=== PATIENT | male | born 1965 | race Caucasian/White ===

== ENCOUNTER 2019-01-15 09:16 | Emergency (ER) | payer OTHER, SELFPAY ==
[2019-01-15 09:21] VITALS: BP 145/101; PULSE 73; RESP 22; TEMP 36.8; O2SAT 95; BMI 39.9
[2019-01-15 09:47] LABS: Add Manual Diff / Slide Review NO; Basophils Absolute Auto 100 /uL (0-100); Basophils Percent Auto 1.9 % (0-2); Eosinophils Absolute Auto 0 /uL (0-450); Eosinophils Percent Auto 0.8 % (2-4); Hematocrit 44.4 % (41-53); Lymphocytes Absolute Auto 1300 /uL (1100-4500); Lymphocytes Percent Auto 23.5 % (25-40); Mean Corpuscular HGB Conc 33.9 % (30-36); Mean Corpuscular Hemoglobin 30.2 PG (26-34); Mean Corpuscular Volume 89.1 fL (80-100); Monocytes Absolute Auto 400 /uL (0-900); Monocytes Percent Auto 7.2 % (3-14); Neutrophils Absolute Auto 3700 /uL (1500-7000); Neutrophils Percent Auto 66.6 % (50-75); Platelet Count 171 X10^3/uL (150-400); Red Blood Cell Count 4.99 X10^6/uL (4.5-5.9); Red Cell Distribution Width 15.1 % (11.6-14.8); White Blood Cell Count 5.5 X10^3/uL (4.5-11.0)
[2019-01-15] MEDS: SODIUM CHLORIDE 0.9% 1,000 ML 150 ML IV (09:57)
[2019-01-15 09:59] LABS: Alanine Aminotransferase 367 IU/L (21-72); Albumin 4.6 g/dL (3.5-5.0); Albumin Globulin Ratio 1.2 (1.0-2.8); Alkaline Phosphatase 318 U/L (38-126); Aspartate Aminotransferase 243 IU/L (17-59); BUN Creatinine Ratio 18.3 (6-22); Bilirubin Total 9.1 mg/dL (0.2-1.3); Blood Urea Nitrogen 11 mg/dL (9-20); Calcium 9.8 mg/dL (8.4-10.2); Carbon Dioxide 23 mmol/L (22-32); Chloride 97 mmol/L (98-107); Estimated Glomerular Filt Rate > 60.0 mL/min (>60); Globulin 3.8 g/dL (1.7-4.1); Glucose 338 mg/dL (70-100); Lipase 118 U/L (23-300); Potassium 4.4 mmol/L (3.4-5.1); Sodium 135 mmol/L (137-145); Total Protein 8.4 g/dL (6.3-8.2)
[2019-01-15 10:03] LABS: HEMOLYSIS 117 (0-50)
[2019-01-15 10:03] LABS: Bacteria Urine None Seen; RBC Urine None Seen (0-5/HPF)
[2019-01-15 10:10] LABS: Culture Indicated Urine Cult Not Indicated; Hyaline Casts Urine 1-5/LPF; WBC Urine 0-1/HPF (0-5/HPF)
[2019-01-15 10:20] LABS: Prothrombin Time 11.6 SECONDS (10.1-12.7)
--- NOTE | 2019-01-15 10:20 | ED_ITS ---
HPI - Abdominal Pain General Chief Complaint: Abdominal Pain Stated Complaint: blood in stool x2 days Time Seen by Provider: 01/15/19 10:00 Source: patient Mode of arrival: ambulatory Limitations: no limitations History of Present Illness HPI narrative: Patient is a 53-year-old male history of diabetes presenting with 1 episode of bloody stool yesterday. He says he has minimal lower abdominal pain no nausea vomiting no fevers. She was worried because he had a large amount of blood. He had a bowel movement after that that was not bloody. He says it was a little mucousy. He has not had any recent travel. He does look jaundiced he denies drinking alcohol he denies any history of IV drug abuse no recent travel. He has no right upper quadrant pain. He is not on any blood thinners or anticoagulation medication. Related Data Home Medications Medication Instructions Recorded Confirmed No Known Home Medications 01/15/19 01/15/19 Allergies Allergy/AdvReac Type Severity Reaction Status Date / Time No Known Drug Allergies Allergy Verified 01/15/19 10:10 Review of Systems Review of Systems ROS Unobtainable: All systems reviewed & are unremarkable except as noted in HPI and below Constitutional Constitutional: Denies chills, Denies fever(s), Denies lethargy and Denies we akness Eyes Eyes: Denies change in vision, Denies eye discharge, Denies irritation and Denies loss of vision ENT Ears, Nose, Mouth, and Throat: Denies change in voice, Denies neck pain and Denies sore throat Cardiovascular Cardiovascular: Denies chest pain, Denies irregular heart rhythm, Denies lightheadedness, Denies palpitations, Denies dyspnea, Denies dyspnea on exertion and Denies orthopnea Respiratory Respiratory: Denies cough, Denies dyspnea, Denies dyspnea on exertion and Denies wheezing Gastrointestinal Gastrointestinal: Reports as per HPI Musculoskeletal Musculoskeletal: Denies neck pain Integumentary/Breasts Skin/Breast: Denies pruritus, Denies erythema, Denies rash and Denies wounds Neurologic Neurologic: Denies loss of vision and Denies weakness Endocrine Endocrine: Denies palpitations Allergic/Immunologic Allergic/Immunologic: Denies wheezing [facility] Medical History Diabetes (Acute) Social History Smoking Status: Former smoker Social History Smoking Status: Former smoker Exam Initial Vital Signs Initial Vital Signs: Vital Signs Temperature 98.3 F 01/15/19 09:21 Pulse Rate 73 01/15/19 09:21 Respiratory Rate 22 01/15/19 09:21 Blood Pressure 145/101 H 01/15/19 09:21 Pulse Oximetry 95 01/15/19 09:21 GENERAL: Alert pleasant middle-aged male appears jaundice and in no acute distress. HEENT: Head atraumatic,EOMI, pupils reactive, icterus noted, face symmetric, moist mucous membranes CARDIOVASCULAR: Regular rate and rhythm without murmurs, rubs or gallops. RESPIRATORY: Breath sounds equal bilaterally, no wheezes rales or rhonchi. ABDOMEN: Soft, nontender. Normoactive bowel sounds all 4 quadrants. No guarding or rebound. No right upper quadrant pain RECTAL: Hemoccult-negative, no gross blood no hemorrhoids, no hemorrhoids, nontender EXTREMITIES: Normal range of motion, no clubbing or edema. Neurovascularly intact NEUROLOGICAL: Alert and oriented x4.Normal gait and speech. Cranial nerves II through XII grossly intact. SKIN: Warm, dry, no laceration, no petechiae, no rashes or lesions. Course Orders Ordered: ED Orders 01/15/19 09:35 Acetaminophen Stat Complete Blood Count AUTO DIFF Stat Comprehensive Metabolic Panel Stat Ethanol (ETOH) Stat Lipase Stat Partial Thromboplastin Time Stat Prothrombin Time INR Stat 01/15/19 10:00 Urine Microscopic Stat 01/15/19 10:23 CT abdomen pelvis w con Stat 01/15/19 11:39 US abdomen complete Stat Discontinued Medications Sodium Chloride (Normal Saline 0.9%) 1,000 mls @ 150 mls/hr IV CONT DEMETRA Last Infusion: 01/15/19 13:11 Dose: 150 mls/hr Documented by: Admin: 01/15/19 09:57 Dose: 150 mls/hr Documented by: ANNMARIE Vital Signs Vital signs: Vital Signs - 8 hr 01/15/19 11:11 01/15/19 12:00 Pulse Rate 61 68 Respiratory Rate 17 17 Blood Pressure [Left Arm] 131/83 134/88 Pulse Oximetry 96 97 MDM - Abdominal Pain Lab Data Attestation: I reviewed the patient's lab results. Result diagrams: 01/15/19 09:35 01/15/19 09:35 Labs: Lab Results 01/15/19 01/15/19 01/15/19 Range/Units 09:35 09:35 09:35 WBC 5.5 (4.5-11.0) X10^3/uL RBC 4.99 (4.5-5.9) X10^6/uL Hgb 15.0 (13.5-17.5) g/dL Hct 44.4 (41-53) % MCV 89.1 (80-100) fL MCH 30.2 (26-34) PG MCHC 33.9 (30-36) % RDW 15.1 H (11.6-14.8) % Plt Count 171 (150-400) X10^3/uL Neut % (Auto) 66.6 (50-75) % Lymph % (Auto) 23.5 L (25-40) % Ashe % (Auto) 7.2 (3-14) % Eos % (Auto) 0.8 L (2-4) % Baso % (Auto) 1.9 (0-2) % Neut # (Auto) 3700 (7894-5075) /uL Lymph # (Auto) 1300 (3525-5728) /uL Ashe # (Auto) 400 (0-900) /uL Eos # (Auto) 0 (0-450) /uL Baso # (Auto) 100 (0-100) /uL PT 11.6 (10.1-12.7) SECONDS INR 1.0 (0.9-1.3) APTT 30 (26.4-36.2) SECONDS Sodium 135 L (137-145) mmol/L Potassium 4.4 (3.4-5.1) mmol/L Chloride 97 L (98-107) mmol/L Carbon Dioxide 23 (22-32) mmol/L BUN 11 (9-20) mg/dL Creatinine 0.60 L (0.66-1.25) mg/dL Estimated GFR > 60.0 (>60) mL/min BUN/Creatinine Ratio 18.3 (6-22) Glucose 338 H (70-100) mg/dL Calcium 9.8 (8.4-10.2) mg/dL Total Bilirubin 9.1 H (0.2-1.3) mg/dL AST 243 H (17-59) IU/L ALT 367 H (21-72) IU/L Alkaline Phosphatase 318 H (38-126) U/L Total Protein 8.4 H (6.3-8.2) g/dL Albumin 4.6 (3.5-5.0) g/dL Globulin 3.8 (1.7-4.1) g/dL Albumin/Globulin Ratio 1.2 (1.0-2.8) Lipase 118 (23-300) U/L Urine RBC (0-5/HPF) Urine WBC (0-5/HPF) Urine Bacteria (None) Hyaline Casts (None) Ur Culture Indicated? Acetaminophen (10-30) ug/mL Ethyl Alcohol ( - 10) mg/dL 01/15/19 01/15/19 01/15/19 Range/Units 09:35 09:35 10:00 WBC (4.5-11.0) X10^3/uL RBC (4.5-5.9) X10^6/uL Hgb (13.5-17.5) g/dL Hct (41-53) % MCV (80-100) fL MCH (26-34) PG MCHC (30-36) % RDW (11.6-14.8) % Plt Count (150-400) X10^3/uL Neut % (Auto) (50-75) % Lymph % (Auto) (25-40) % Ashe % (Auto) (3-14) % Eos % (Auto) (2-4) % Baso % (Auto) (0-2) % Neut # (Auto) (3686-8057) /uL Lymph # (Auto) (8673-6366) /uL Ashe # (Auto) (0-900) /uL Eos # (Auto) (0-450) /uL Baso # (Auto) (0-100) /uL PT (10.1-12.7) SECONDS INR (0.9-1.3) APTT (26.4-36.2) SECONDS Sodium (137-145) mmol/L Potassium (3.4-5.1) mmol/L Chloride (98-107) mmol/L Carbon Dioxide (22-32) mmol/L BUN (9-20) mg/dL Creatinine (0.66-1.25) mg/dL Estimated GFR (>60) mL/min BUN/Creatinine Ratio (6-22) Glucose (70-100) mg/dL Calcium (8.4-10.2) mg/dL Total Bilirubin (0.2-1.3) mg/dL AST (17-59) IU/L ALT (21-72) IU/L Alkaline Phosphatase (38-126) U/L Total Protein (6.3-8.2) g/dL Albumin (3.5-5.0) g/dL Globulin (1.7-4.1) g/dL Albumin/Globulin Ratio (1.0-2.8) Lipase (23-300) U/L Urine RBC None seen (0-5/HPF) Urine WBC 0-1/hpf (0-5/HPF) Urine Bacteria None seen (None) Hyaline Casts 1-5/lpf (None) Ur Culture Indicated? Cult not indicated Acetaminophen < 10 L (10-30) ug/mL Ethyl Alcohol < 10 ( - 10) mg/dL Point of care testing: Urine Dip Bedside Urine Glucose 1000 mg/dl Bedside Urine Bilirubin ++ 2 Bedside Urine Ketone ++ 40 Urine Specific [place] 1.025 Bedside Urine Occult Blood - Negative Bedside Urine pH 5.0 Bedside Urine Protein +/- 15 Bedside Urine Urobilinogen +/- 1mg Bedside Urine Nitrite - Negative Bedside Urine Leukocytes +/- [address] scan - abdomen: Radiologist's impression: PROCEDURE: CT ABDOMEN PELVIS W CON INDICATIONS: elevated liver enzymes bloody stool TECHNIQUE: After the administration of intravenous contrast, 5 mm thick sections acquired from the diaphragm to the symphysis. 5 mm coronal and sagittal reformats were acquired. For radiation dose reduction, the following was used: automated exposure control, adjustment of mA and/or kV according to patient size. COMPARISON: None. FINDINGS: Image quality: Excellent. ABDOMEN: Lung bases: There is mild dependent atelectasis bilaterally. Heart size is normal. Solid organs: There is an ill-defined slightly hypoattenuating mass within the uncinate process of the pancreas measuring approximately 3.3 cm in transverse extent by 3 cm in anteroposterior extent by 3 cm in craniocaudal extent. There is associated mass effect on the distal common bile duct with intra-and extrahepatic biliary ductal dilatation. The common bile duct measures up to approximately 1.2 cm. No pancreatic duct dilatation. The mass lesion extends to the 2nd portion of the duodenum with effacement of the fat plane suspicious for duodenal invasion. No definite vascular encasement identified. Evaluation of the liver demonstrates no definite mass lesion. The gallbladder is distended without calcified gallstones or wall thickening. Spleen is normal in size and enhancement. No adrenal nodules. Kidneys demonstrate normal size and enhancement, without hydronephrosis. Peritoneum and bowel: Bowel loops demonstrate normal wall thickness and caliber. The appendix is normal in appearance. There is colonic diverticulosis without acute diverticulitis. No free fluid or air. Nodes and vessels: There are mildly enlarged peripancreatic lymph nodes including a portacaval node measuring up to 1 cm in short axis. Aorta and inferior vena cava are normal in size. Miscellaneous: No ventral hernias. PELVIS: Genitourinary: Bladder wall thickness is normal. Miscellaneous: No inguinal hernias or adenopathy. Bones: No suspicious bony lesions. No vertebral body compression fractures. IMPRESSION: 1. Ill-defined mass in the uncinate process of the pancreas with associated biliary ductal dilatation. The findings most likely represent a pancreatic ad enocarcinoma. There is suspected invasion of the descending portion of the duodenum. No pancreatic duct dilatation or definite vascular encasement identified. 2. Mildly enlarged peripancreatic lymph nodes are nonspecific but suggestive of felipe metastatic disease. Dictated by: Monty Osorio M.D. on 01/15/2019 at 10:44 US - abdomen: Radiologist's impression: PROCEDURE: US ABDOMEN COMPLETE INDICATIONS: RUQ PAIN, ELEV LIVER ANZYMES AND BILIRUBIN TECHNIQUE: Real-time scanning was performed of the abdominal and retroperitoneal organs, with image documentation. COMPARISON: [facility], CT, CT ABDOMEN PELVIS W CON, 01/15/2019, 10:28. FINDINGS: Liver: Liver is enlarged the steatosis. Gallbladder: Gallbladder is distended. Layering increased echogenicity is present, likely sludge. Brewer within normal limits measuring 1.7 mm. Biliary ducts: Intrahepatic bile ducts are mildy prominent. Extrahepatic bile duct caliber measures 13 mm. Normal is 6-7 mm or less in diameter, or 10 mm or less post-cholecystectomy. Pancreas: Not visualized. Spleen: Spleen is normal in size and homogeneous in echotexture. Kidneys: Kidneys are normal in size and echotexture. Right kidney measures 12.8 cm long; left kidney measures 13.7 cm long. No hydronephrosis or nephrolithiasis. No solid masses. Aorta: Visualized aorta is normal in caliber at less than 3 cm. Iliacs: Proximal common iliac arteries are normal in caliber at less than 2.5 cm. IVC: Intrahepatic inferior vena cava is patent. Miscellaneous: No free abdominal fluid. IMPRESSION: Unchanged bile duct and intrahepatic biliary dilation as identified on CT abdomen pelvis of 01/15/19. Previously identified pancreatic mass identified on CT is unable to be visualized on current exam, as pancreas is not seen secondary to overlying bowel gas. Dictated by: Cely Woodard M.D. on 01/15/2019 at 13:13 MDM Narrative Medical decision making narrative: Patient has obvious jaundice elevated bili Escobar. Pancreatic mass is found. However patient is relatively asymptomatic. He is guaiac-negative hemoglobin hematocrit are stable. I spoke with surgery Dr. Prabhakar, who recommends that patient get a biliary stent placed he will obviously need further workup. I called [place] and spoke with the GI doctor Edilia, at this time though he does need urgent procedure it is not emergent no need to transfer at this time. Recommend getting referral from PCP. I was able to contact the [facility] I spoke with a nurse directly involved with with patient's PCP. Discussed with her that urgent matter I gave her the name of the physician at [place] who is willing and able to do the procedure later this week. I have also given this information to the patient. I discussed all findings with the patient, Education has been performed regarding treatment plan, diagnosis, warning signs and symptoms and all concerns have been addressed. Verbally agree with and understood all of the above. Discharge Plan Departure Patient Disposition: Home Clinical Impression: Mass of pancreas Discharge Date/Time: 01/15/19 13:43 Activity Restrictions/Additional Instructions: *You have been diagnosed with pancreatic mass *What to do: You need multiple other tests and workup. I have called your PCP they are putting in a referral for you for GI hopefully you can get ERCP and procedure done this week. *Continue to take medications as directed *Follow up with your primary care provider in 2-3 days GI doctor and office should call you. Please check in with your PCP and the GI to see where the referral is. *Return to ER if you should have increasing abdominal pain nausea vomiting persistent bloody diarrhea or any new, worsening or concerning symptoms Prescriptions: No Action No Known Home Medications RF: 0 [facility]errals: [facility] [Provider Group] Sin Heredia MD [Physician] -
[2019-01-15 10:23] LABS: PTT Partial Thromboplastin Tim 30 SECONDS (26.4-36.2)
--- NOTE | 2019-01-15 10:23 | DI.CT.S_ITS ---
PROCEDURE: CT ABDOMEN PELVIS W CON INDICATIONS: elevated liver enzymes bloody stool TECHNIQUE: After the administration of intravenous contrast, 5 mm thick sections acquired from the diaphragm to the symphysis. 5 mm coronal and sagittal reformats were acquired. For radiation dose reduction, the following was used: automated exposure control, adjustment of mA and/or kV according to patient size. COMPARISON: None. FINDINGS: Image quality: Excellent. ABDOMEN: Lung bases: There is mild dependent atelectasis bilaterally. Heart size is normal. Solid organs: There is an ill-defined slightly hypoattenuating mass within the uncinate process of the pancreas measuring approximately 3.3 cm in transverse extent by 3 cm in anteroposterior extent by 3 cm in craniocaudal extent. There is associated mass effect on the distal common bile duct with intra-and extrahepatic biliary ductal dilatation. The common bile duct measures up to approximately 1.2 cm. No pancreatic duct dilatation. The mass lesion extends to the 2nd portion of the duodenum with effacement of the fat plane suspicious for duodenal invasion. No definite vascular encasement identified. Evaluation of the liver demonstrates no definite mass lesion. The gallbladder is distended without calcified gallstones or wall thickening. Spleen is normal in size and enhancement. No adrenal nodules. Kidneys demonstrate normal size and enhancement, without hydronephrosis. Peritoneum and bowel: Bowel loops demonstrate normal wall thickness and caliber. The appendix is normal in appearance. There is colonic diverticulosis without acute diverticulitis. No free fluid or air. Nodes and vessels: There are mildly enlarged peripancreatic lymph nodes including a portacaval node measuring up to 1 cm in short axis. Aorta and inferior vena cava are normal in size. Miscellaneous: No ventral hernias. PELVIS: Genitourinary: Bladder wall thickness is normal. Miscellaneous: No inguinal hernias or adenopathy. Bones: No suspicious bony lesions. No vertebral body compression fractures. IMPRESSION: 1. Ill-defined mass in the uncinate process of the pancreas with associated biliary ductal dilatation. The findings most likely represent a pancreatic adenocarcinoma. There is suspected invasion of the descending portion of the duodenum. No pancreatic duct dilatation or definite vascular encasement identified. 2. Mildly enlarged peripancreatic lymph nodes are nonspecific but suggestive of felipe metastatic disease. Dictated by: Monty Osorio M.D. on 01/15/2019 at 10:44 Approved by: Monty Osorio M.D. on 01/15/2019 at 10:52
[2019-01-15 10:52] LABS: Acetaminophen < 10 ug/mL (10-30); Ethanol (ETOH) < 10 mg/dL
[2019-01-15 11:11] VITALS: BP 131/83; PULSE 61; RESP 17; O2SAT 96
--- NOTE | 2019-01-15 11:39 | DI.US.S_ITS ---
PROCEDURE: US ABDOMEN COMPLETE INDICATIONS: RUQ PAIN, ELEV LIVER ANZYMES AND BILIRUBIN TECHNIQUE: Real-time scanning was performed of the abdominal and retroperitoneal organs, with image documentation. COMPARISON: [facility], CT, CT ABDOMEN PELVIS W CON, 01/15/2019, 10:28. FINDINGS: Liver: Liver is enlarged the steatosis. Gallbladder: Gallbladder is distended. Layering increased echogenicity is present, likely sludge. Brewer within normal limits measuring 1.7 mm. Biliary ducts: Intrahepatic bile ducts are mildy prominent. Extrahepatic bile duct caliber measures 13 mm. Normal is 6-7 mm or less in diameter, or 10 mm or less post-cholecystectomy. Pancreas: Not visualized. Spleen: Spleen is normal in size and homogeneous in echotexture. Kidneys: Kidneys are normal in size and echotexture. Right kidney measures 12.8 cm long; left kidney measures 13.7 cm long. No hydronephrosis or nephrolithiasis. No solid masses. Aorta: Visualized aorta is normal in caliber at less than 3 cm. Iliacs: Proximal common iliac arteries are normal in caliber at less than 2.5 cm. IVC: Intrahepatic inferior vena cava is patent. Miscellaneous: No free abdominal fluid. IMPRESSION: Unchanged bile duct and intrahepatic biliary dilation as identified on CT abdomen pelvis of 01/15/19. Previously identified pancreatic mass identified on CT is unable to be visualized on current exam, as pancreas is not seen secondary to overlying bowel gas. Dictated by: Cely Woodard M.D. on 01/15/2019 at 13:13 Approved by: Cely Woodard M.D. on 01/15/2019 at 13:25
[2019-01-15 12:00] VITALS: BP 134/88; PULSE 68; RESP 17; O2SAT 97
--- NOTE | 2019-01-15 12:49 | PC.NURSE ---
pt aware of dx by md, i spoke with pt regarding transfer and that I would be more than happy to answer questions and to call family as needed.
== END 2019-01-15 13:43 | disposition home or self-care (01) ==
PROVIDERS: Emergency Provider Emergency Medicine
DX: K86.89 Other specified diseases of pancreas (principal)
CPT/HCPCS: 36591; 74177; 76700; 80053; 80320; 80329; 81003; 81015; 83690; 85025; 85610; 85730; 96360; 96361; 99283; 99285; G0480; Q9967

== ENCOUNTER → 2019-02-12 12:25 | Outpatient (CLI) | payer OTHER, SELFPAY ==
--- NOTE | 2019-02-12 12:30 | DI.CT.S_ITS ---
PROCEDURE: CT CHEST W CON INDICATIONS: PANCREATIC CANCER TECHNIQUE: After the administration of intravenous contrast, 5 mm thick sections acquired from the pulmonary apices to the posterior costophrenic angles. 1 mm axial lung, 5 mm thick coronal and sagittal reformats and 7 mm axial MIP were acquired. For radiation dose reduction, the following was used: automated exposure control, adjustment of mA and/or kV according to patient size. COMPARISON: [facility], US, US ABDOMEN COMPLETE, 01/15/2019, 11:56. [facility], CT, CT ABDOMEN PELVIS W CON, 01/15/2019, 10:28. FINDINGS: Image quality: Excellent. Lungs and pleura: No acute air space opacities. No pleural effusions or pneumothorax. Central and peripheral airways are patent and normal in caliber. Mediastinum: Heart size is normal. No pericardial effusion. No mediastinal or hilar adenopathy by size criteria. Thoracic aorta and central pulmonary arteries are normal in size. Esophagus is normal in caliber. No hiatal hernia. Bones and chest wall: No suspicious bony lesions. No vertebral body compression fractures. No axillary or supraclavicular adenopathy by size criteria. Thyroid gland appears normal. Abdomen: Visualized upper abdominal solid organs appear normal except for mild pneumobilia related to presence of a pancreatic head biliary stent traversing the area of prior identified indistinct pancreatic part parenchymal margination subsequently documented as secondary to pancreatic carcinoma. Upper abdominal bowel loops are normal in caliber. A single mildly prominent lymph node at the anterior border of the proximal main portal vein measures 8-9 mm in maximal short axis dimension. No enlarging or new lobes are seen. IMPRESSION: Pancreatic head delay or stent in place, relieving intrahepatic biliary distention and reducing the caliber of the common duct. The stent crosses the area of previously identified subtle pancreatic head mass, as cause of the abnormal liver function tests and appearance of the pancreatic head on CT scanning 01/15/19. No metastatic disease found within the chest. Dictated by: Barron Perales M.D. on 02/12/2019 at 13:46 Approved by: Barron Perales M.D. on 02/12/2019 at 13:54
== END ==
PROVIDERS: Family Provider Internal Medicine; PCP Internal Medicine; Visit Provider Internal Medicine Hematology & Oncology
DX: C25.9 Malignant neoplasm of pancreas, unspecified (principal)
CPT/HCPCS: 71260; Q9967

== ENCOUNTER → 2019-02-21 15:07 | Outpatient (CLI) | payer SELFPAY ==
--- NOTE | 2019-02-21 15:13 | DI.NM.S_ITS ---
PROCEDURE: NM PET CT FUSION LIMITED AREA RADIOPHARMACEUTICAL: 12.64 mCi F-18 fluorodeoxyglucose IV. INDICATIONS: PANCREATIC CANCER TECHNIQUE: After intravenous administration of F-18 fluoro-deoxyglucose (FDG), noncontrast CT images were obtained for attenuation correction and anatomic localization. A series of overlapping emission PET images was then obtained. The patient's pretest fasting blood glucose level as measured by glucometer was 97 mg/dl. The area imaged spanned from the skull base to the upper thighs. COMPARISON: None. FINDINGS: Head and neck: No soft tissue masses in the neck. No enlarged cervical or supraclavicular lymph nodes; no abnormal felipe tracer uptake. Salivary and thyroid glands appear normal. Sinuses and mastoids are clear. Thorax: No enlarged mediastinal, hilar, or axillary lymph nodes. No abnormal felipe tracer uptake. No acute pulmonary opacities. No pleural effusions or pneumothorax. Heart size is normal. No pericardial effusion. Abdomen and pelvis: A biliary stent is again noted in place. Patient's known ill-defined hypodense lesion involving uncinate process of pancreas is again seen and measures approximately 3 x 3.5 x 3 cm in size, not significantly changed from previous study. They show intense increased uptake in maximal SUV value of 5.9. No adjacent abnormal felipe uptake or enlarged lymph node is seen. Adjacent medial wall of second portion of duodenum is indistinct in appearance with significant increase uptake in this area concerning for direct tumor invasion. No enlarged retroperitoneal or mesenteric lymph nodes. No abnormal felipe tracer uptake. There is normal heterogeneous hepatic tracer uptake. Liver is normal in size, without focal masses. No significant biliary ductal dilatation is noted on the current study. Small amount of pneumobilia is again seen, unchanged from previous chest CT study and likely due to biliary stent placement. The spleen is normal in size. Gallbladder is within normal limits. Pancreas is normal in morphology. No adrenal nodules. Kidneys are normal in size, without hydronephrosis or nephrolithiasis. Small and large intestines are normal in caliber. Aorta and inferior vena cava are normal in size. No free fluid or air. No pelvic or inguinal adenopathy. Bladder wall thickness is normal. Bones: No abnormal osseous tracer uptake. No lytic or blastic bony lesions. IMPRESSION: 1. Malignant mass involving uncinate process of pancreas with markedly increased metabolic activity as above. It is difficult to assess the adjacent second portion of duodenum, direct tumor invasion of medial wall is likely present. 2. Biliary stent in place. Small amount of pneumobilia predominantly in left lobe of liver. No significant biliary ductal dilatation is seen on the current study. 3. No abnormal felipe uptake in chest, abdomen or pelvis. No evidence of metastatic disease is seen. Dictated by: Lenin Baca M.D. on 02/22/2019 at 10:32 Approved by: Lenin Baca M.D. on 02/22/2019 at 11:05
== END ==
PROVIDERS: Family Provider Internal Medicine; PCP Internal Medicine; Visit Provider Internal Medicine Hematology & Oncology
DX: C25.0 Malignant neoplasm of head of pancreas (principal)

== ENCOUNTER 2019-03-19 10:06 | Day surgery (SDC) | payer OTHER, SELFPAY ==
[2019-03-19] VITALS (9 sets, daily range): BP systolic 113–138; BP diastolic 73–91; PULSE 54–71; RESP 18–24; TEMP 36.2–36.6; O2SAT 95–98; BMI 33.6
--- NOTE | 2019-03-19 | DI.RAD.S_ITS ---
PROCEDURE: XR CHEST 1V INDICATIONS: PORT A CATH PLACEMENT TECHNIQUE: One view of the chest was acquired. COMPARISON: None. FINDINGS: Surgical changes and devices: Right chest port with the tip projecting in the upper SVC. Partially visualized stent projecting in the right abdomen Lungs and pleura: Low lung volumes with scattered subsegmental atelectasis/scarring. No pleural effusions or pneumothorax. Mediastinum: Mediastinal contours appear normal. Heart size is normal. Bones and chest wall: No suspicious bony lesions. Overlying soft tissues appear unremarkable. IMPRESSION: Right chest port with the tip projecting in the upper SVC. No pneumothorax. Low lung volumes with scattered subsegmental atelectasis/scarring. Dictated by: Pranay Moore M.D. on 03/19/2019 at 16:08 Approved by: Pranay Moore M.D. on 03/19/2019 at 16:10
[2019-03-19] MEDS: LACTATED RINGERS 1,000 ML 100 ML IV (12:39)
--- NOTE | 2019-03-19 13:12 | P.HP_ITS ---
History of Present Illness History of Present Illness Date Patient Seen: 03/19/19 Time Patient Seen: 13:12 Chief complaint: [id number] Narrative: Patient is a gentleman with pancreatic cancer. There is a plan to given neoadjuvant therapy I was asked to place a Port-A-Cath. The patient is right-hand dominant would but would refer that the port be placed on the right side because he sleeps on his left. Patient History Medical History Adenocarcinoma of head of pancreas (Acute ~01/2019) Diabetes (Acute) Hematochezia (Acute 01/15/19) HLD (hyperlipidemia) (Acute) Surgical History S/P ERCP (Acute 01/18/19) Family & Social History Tobacco & Substance use: Smoking Status Former smoker Substance Use Type does not use Meds Home Medications and Allergies Home Medications Medication Instructions Recorded Confirmed Type atorvastatin 40 mg PO DAILY 02/05/19 03/19/19 History insulin glargine [Lantus U-100 14 unit SUBCUT BEDTIME 02/05/19 03/19/19 History Insulin] metformin 1,000 mg PO DAILY 02/05/19 03/19/19 History fluorouracil 5,330 mg IV NOW #1 device 03/12/19 03/14/19 Rx Allergies Allergy/AdvReac Type Severity Reaction Status Date / Time No Known Drug Allergies Allergy Verified 03/19/19 12:18 Review of Systems Review of Systems Narrative: No chest pain. No cough or cold. No black or bloody bowel movements. No seizures. Exam Vital Signs (past 8 hours): - 03/19/19 12:36 Temperature 97.8 F Pulse Rate 58 L Respiratory Rate 20 Blood Pressure 121/73 Pulse Oximetry 96 Oxygen Delivery Method Room Air Narrative Exam Narrative: Obese gentleman no apparent distress. His eyes are nonicteric. There are no nodes in his neck or supraclavicular areas. Lungs are clear to auscultation no rales or rhonchi. Heart regular rate and rhythm without murmur gallop. Normal radial pulse 2 +. No rashes of the chest wall. No unusual dilatation of his neck veins. He is alert and oriented x3. Assessment & Plan Assessment and plan (1) Pancreatic adenocarcinoma: Current visit: No Status: Acute Assessment & Plan narrative: Will place a Port-A-Cath and his right side. Ei ther in the subclavian or IJ. I have discussed the procedure with him. I discussed the nature the port with him. Risks of bleeding, infection (a process that is ongoing), lung collapse which might require chest tube, and DVT with possible arm swelling or PE which could even cause were also discussed with him. He appears to understand wishes to proceed.
--- NOTE | 2019-03-19 13:16 | PM.PREOP ---
Pre-operative Note Interval Note History & Physical reviewed/Exam performed by Physician: Yes Changes to H&P: No
[2019-03-19] MEDS: CEFAZOLIN 2 GM/100 ML FROZ.PIGGY IV (13:40)
--- NOTE | 2019-03-19 14:18 | SUR.OPER ---
Supine on padded OR bed, head on pillow, arm padded and tucked at side, legs uncrossed, safety belt at thigh, tape over blanket over lower legs .
--- NOTE | 2019-03-19 14:18 | SUR.OPER ---
GEL DONUT, ROLL UNDER SHOULDERS
[2019-03-19] MEDS: LIDOCAINE 1% 30 ML INJ (14:24)
[2019-03-19] MEDS: HEPARIN 5,000 UNIT, SODIUM CHLORIDE 0.9% 50 ML IV (14:25)
--- NOTE | 2019-03-19 14:49 | PM.OP.1 ---
Operative Date/Time/Diagnoses Date of procedure: 03/19/19 Time of procedure: 14:49 Pre-op diagnosis: Pancreatic cancer Post-op diagnosis: same Procedure & Clinicians Procedure: Placement of Port-A-Cath for neoadjuvant chemotherapy Same procedure as scheduled: Yes Indications: IV access for chemotherapy Surgeon: Gutierrez Hauser Click Yes if Unassisted: Yes Anesthesia Type: General Operative Notes Findings: Tip of the catheter in the SVC. Aspirates and flushes without difficulty Closure Type: primary Specimen(s): none sent Prosthetic devices, grafts, tissues, transplants, or devices: Port-A-Cath regular Estimated Blood Loss (mL): 5 Blood products transfused: none Procedure in detail: Patient was placed supine on the operating room table and underwent general LMA anesthesia. He was prepped and draped in the usual fashion. A roll was placed between his shoulders prior to prepping and draping. Local anesthetic was infiltrated in a field block fashion beneath the right clavicle. Transverse incision was made and carried in the subcu fat. A pocket was created inferior to the incision. Patient was placed in Trendelenburg and a needle was inserted on 1st attempt into the subclavian vein. Guidewire was passed and the needle removed. Fluoroscopy revealed that the guidewire was going in appropriate position. The catheter was put together in tapered to appropriate length. The port was placed in the pocket. The dilator was and introducer were passed over the guidewire and the guidewire and dilator removed leaving the introducer in place. Catheter was passed through the introducer and the introducer was peeled away leaving the catheter in good position based on fluoroscopic evaluation. The port was aspirated and flushed with heparinized saline. The port was secured to the chest wall with interrupted 2 0 silk sutures. The subcu was closed with interrupted 3 0 Vicryl. The skin was closed running 4 0 Vicryl subcuticular stitch and Steri-Strips. Dressing was applied the patient was awakened, extubated and taken recovery room good condition. Complications: none Post-operative Condition: stable Disposition: PACU
== END 2019-03-19 15:48 | disposition home or self-care (01) ==
PROVIDERS: Family Provider Internal Medicine; PCP Internal Medicine; Visit Provider Specialist
PROC: (CPT 36561; principal; 2019-03-19 12:15)
DX: C25.0 Malignant neoplasm of head of pancreas (principal); Z45.2 Encounter for adjustment and management of vascular access device; E11.9 Type 2 diabetes mellitus without complications; E78.5 Hyperlipidemia, unspecified; Z79.4 Long term (current) use of insulin
CPT/HCPCS: 36561; 71045; 76000; 93005; 94762; C1788; J0690; J1644; J2250; J2405; J2704; J2765; J3010

== ENCOUNTER → 2019-05-10 08:54 | Outpatient (CLI) | payer OTHER, SELFPAY ==
--- NOTE | 2019-05-10 09:04 | DI.CT.S_ITS ---
PROCEDURE: CT ABDOMEN W CON INDICATIONS: pancreatic cancer TECHNIQUE: After the administration of intravenous contrast, 5 mm thick sections acquired from the diaphragm to the iliac crests. 5 mm coronal and sagittal reformats were performed. For radiation dose reduction, the following was used: automated exposure control, adjustment of mA and/or kV according to patient size. COMPARISON: [facility], CT, CT ABDOMEN PELVIS W CON, 01/15/2019, 10:28. [facility], [place], [place] CT FUSION SKULL 2 THIGH, 02/21/2019, 15:50. FINDINGS: Image quality: Excellent. Lung bases: Lung bases are clear. Heart size is normal. Solid organs: This patient's known uncinate process mass is scrutinized and is again seen measuring 3.5 cm transversely and 3 cm AP by 3.5 cm craniocaudal. This is not significantly changed in size, when measured in a similar fashion compared to the prior contrast enhanced CT dated 01/15/19. There is again seen mild invasion of the left aspect of the 2nd portion of the duodenum. No pancreatic ductal dilatation is seen. No peripancreatic fluid collections are seen. A biliary stent is seen, which contains gas. Biliary gas is seen. Gallbladder wall does not appear thickened. Gas is seen within the gallbladder itself. Biliary system is non dilated. Liver is normal in size and enhancement. Spleen is normal in size and enhancement. No adrenal nodules. Kidneys demonstrate normal size and enhancement, without hydronephrosis. Peritoneum and bowel: Bowel loops demonstrate normal wall thickness and caliber. No free fluid or air. Nodes and vessels: The previously seen mildly enlarged peripancreatic lymph nodes are not significantly changed compared to the prior examination. No enlarged retroperitoneal lymph nodes are seen. Aorta and inferior vena cava are normal in size. Atherosclerotic calcification is noted. Miscellaneous: A mild periumbilical hernia is seen, containing fat. Age-appropriate bony degenerative changes are seen. IMPRESSION: The pancreatic mass is not significantly changed in size compared to prior contrast enhanced CT dated 01/15/19. A biliary stent is seen, with associated biliary gas. Stable mild enlargement of peripancreatic lymph nodes. Dictated by: Des Lewis M.D. on 05/10/2019 at 8:39 Approved by: Des Lewis M.D. on 05/10/2019 at 8:51
[2019-05-14 14:40] LABS: Hematocrit 31.9 % (41-53); Hemoglobin 11.3 g/dL (13.5-17.5); Mean Corpuscular HGB Conc 35.5 % (30-36); Mean Corpuscular Hemoglobin 30.9 PG (26-34); Mean Corpuscular Volume 87.1 fL (80-100); Platelet Count 95 X10^3/uL (150-400); Red Blood Cell Count 3.66 X10^6/uL (4.5-5.9); Red Cell Distribution Width 13.4 % (11.6-14.8); White Blood Cell Count 4.9 X10^3/uL (4.5-11.0)
[2019-05-14 14:47] LABS: Add Manual Diff / Slide Review YES
[2019-05-14 14:57] LABS: Alanine Aminotransferase 49 IU/L (<50); Albumin Globulin Ratio 1.5 (1.0-2.8); Alkaline Phosphatase 140 U/L (38-126); Aspartate Aminotransferase 33 IU/L (17-59); BUN Creatinine Ratio 13.3 (6-22); Bilirubin Total 0.7 mg/dL (0.2-1.3); Blood Urea Nitrogen 8 mg/dL (9-20); Carbon Dioxide 27 mmol/L (22-32); Chloride 102 mmol/L (98-107); Estimated Glomerular Filt Rate > 60.0 mL/min (>60); Globulin 2.7 g/dL (1.7-4.1); Glucose 216 mg/dL (70-100); HEMOLYSIS < 15 (0-50); Potassium 3.8 mmol/L (3.4-5.1); Sodium 139 mmol/L (137-145); Total Protein 6.7 g/dL (6.3-8.2)
[2019-05-14 15:01] LABS: Neutrophils Absolute Manual 3038 /uL (3000-5900); RBC Morphology Normal Morphology; Total Cells Counted 100
== END ==
PROVIDERS: PCP Internal Medicine; Visit Provider Internal Medicine Hematology & Oncology
DX: C25.9 Malignant neoplasm of pancreas, unspecified (principal); R59.0 Localized enlarged lymph nodes
CPT/HCPCS: 74160; Q9967

== ENCOUNTER → 2019-07-30 10:59 | Outpatient (CLI) | payer OTHER, SELFPAY ==
--- NOTE | 2019-07-30 13:06 | DI.CT.S_ITS ---
PROCEDURE: CT ABDOMEN W CON INDICATIONS: pancreatic cancer TECHNIQUE: After the administration of intravenous contrast, 5 mm thick sections acquired from the diaphragm to the iliac crests. 5 mm coronal and sagittal reformats were performed. For radiation dose reduction, the following was used: automated exposure control, adjustment of mA and/or kV according to patient size. COMPARISON: [facility], CT, CT ABDOMEN W CON, 05/10/2019, 9:01. [facility], CT, CT ABDOMEN PELVIS W CON, 01/15/2019, 10:28. FINDINGS: Image quality: Excellent. Lung bases: Lung bases are clear. Heart size is normal. Solid organs: Liver is mildly enlarged with steatosis is present. Gallbladder is present with error in the nondependent lumen, unchanged. Pneumobilia is present including air within the common bile duct, unchanged. Stent is present within the uncinate process mass appearing patent. Mass is stable in size. There is unchanged appearance of mild invasion into the medial aspect of the second portion of the duodenum. No pancreatic ductal dilation. Spleen is normal in size and enhancement. No adrenal nodules. Kidneys demonstrate normal size and enhancement, without hydronephrosis. Peritoneum and bowel: Bowel loops demonstrate normal wall thickness and caliber. No free fluid or air. Nodes and vessels: Borderline prominent peripancreatic lymph nodes are unchanged. Aorta and inferior vena cava are normal in size. Miscellaneous: No ventral hernias. IMPRESSION: 1. Stable interval exam demonstrating uncinate process mass and pneumobilia. There is stable appearance of mild invasion of the second portion of the duodenum. Mass is stable in appearance without evidence of distal metastatic disease. Dictated by: Cely Woodard M.D. on 07/30/2019 at 13:33 Approved by: eCly Woodard M.D. on 07/30/2019 at 13:39
== END ==
PROVIDERS: PCP Internal Medicine; Referring Provider Internal Medicine Hematology & Oncology; Visit Provider Internal Medicine Hematology & Oncology
DX: C25.9 Malignant neoplasm of pancreas, unspecified (principal); K76.0 Fatty (change of) liver, not elsewhere classified
CPT/HCPCS: 74160; Q9967

== ENCOUNTER → 2019-10-18 09:03 | Outpatient (CLI) | payer OTHER, SELFPAY ==
--- NOTE | 2019-10-18 09:52 | DI.CT.S_ITS ---
PROCEDURE: CT ABDOMEN W CON INDICATIONS: pancreatic cancer TECHNIQUE: After the administration of oral and intravenous contrast, 5 mm thick sections acquired from the diaphragms to the iliac crests. 5 mm thick coronal and sagittal reformats were acquired. For radiation dose reduction, the following was used: automated exposure control, adjustment of mA and/or kV according to patient size. COMPARISON: [facility], CT, CT ABDOMEN W CON, 07/30/2019, 11:19. [facility], CT, CT ABDOMEN W CON, 05/10/2019, 9:01. FINDINGS: Image quality: Excellent. Lung bases: Lung bases are clear. Heart size is normal. Solid organs: Liver is normal in size and enhancement. Gallbladder appears to have been resected. Biliary system is non dilated. Pancreas appears to have undergone a Whipple procedure with reference to the comparison study from 07/30/19 compared to the current study. An enteric staple line is seen at the gastric outlet, and note is made of removal of a previously present pancreatic/biliary duct stent. There is a thin catheter like device traversing into the descending duodenum, from what appears to be the Whipple procedure epicenter. Spleen is normal in size and enhancement. No adrenal nodules. Kidneys are normal in size, without hydronephrosis. Peritoneum and bowel: Contrast enhanced bowel loops appear normal in caliber. No free fluid or air. Nodes and vessels: No retroperitoneal or mesenteric adenopathy by size criteria. Aorta and inferior vena cava are normal in size. Bones: No suspicious bony lesions. No vertebral body compression fractures. Miscellaneous: No ventral hernias. IMPRESSION: 1. The most recent comparison study is dated 07/30/19. The morphology of the pancreatic head region and the adjacent stomach and bile ducts appears to have changed by operative intervention. Please correlate clinically. 2. Through the visualized lower chest and abdomen included on this study adenopathy or other metastatic disease is not found. Dictated by: Barron Perales M.D. on 10/18/2019 at 12:03 Approved by: Barron Perales M.D. on 10/18/2019 at 12:15
== END ==
PROVIDERS: PCP Internal Medicine; Referring Provider Internal Medicine Hematology & Oncology; Visit Provider Internal Medicine Hematology & Oncology
DX: C25.9 Malignant neoplasm of pancreas, unspecified (principal)
CPT/HCPCS: 74160; Q9967

== ENCOUNTER → 2019-12-31 09:43 | Outpatient (CLI) | payer OTHER, SELFPAY ==
--- NOTE | 2019-12-31 09:44 | DI.CT.S_ITS ---
PROCEDURE: CT ABDOMEN W CON INDICATIONS: pancreatic cancer TECHNIQUE: After the administration of intravenous contrast, 5 mm thick sections acquired from the diaphragm to the iliac crests. 5 mm coronal and sagittal reformats were performed. For radiation dose reduction, the following was used: automated exposure control, adjustment of mA and/or kV according to patient size. COMPARISON: [facility], CT, CT ABDOMEN W CON, 05/10/2019, 9:01. [facility], CT, CT ABDOMEN W CON, 10/18/2019, 9:44. FINDINGS: Image quality: Excellent. Lung bases: Lung bases are clear. Heart size is normal. Coronary artery calcifications are present. Hepatic steatosis present. Pneumobilia as before. A presumed stent seen within the duodenum is no longer visualized. Postsurgical changes related to a presumed Whipple procedure as before. There is hazy ill-defined stranding surrounding the pancreas body, although this appears grossly unchanged. Previously described ill-defined soft tissue versus inflammatory attenuation is less conspicuous on the current examination. There are decompressed small bowel loops, and surgical bowel anastomoses as before. The splenic artery and vein appear grossly patent, with mild surrounding hazy ground-glass opacity. There are shotty retroperitoneal and mesenteric lymph nodes without definite pathologic enlargement. Subcentimeter renal foci, statistically cysts, although technically too small to characterize accurately and therefore nonspecific. Adrenal glands and spleen unremarkable. Peritoneum and bowel: No free fluid or air. Nodes and vessels: No retroperitoneal or mesenteric adenopathy by size criteria. Aorta and inferior vena cava are normal in size. Miscellaneous: No ventral hernias. IMPRESSION: Overall, grossly less conspicuous appearance of the ill-defined soft tissue versus inflammation seen in the region of the operative bed since the prior study. No discrete mass identified. Numerous decompressed small bowel loops and postsurgical changes as before. No pathologically enlarged lymphadenopathy. Dictated by: Pranay Moore M.D. on 12/31/2019 at 10:59 Approved by: Pranay Moore M.D. on 12/31/2019 at 11:15
== END ==
PROVIDERS: PCP Internal Medicine; Referring Provider Internal Medicine; Visit Provider Internal Medicine Hematology & Oncology
DX: C25.9 Malignant neoplasm of pancreas, unspecified (principal); I25.10 Atherosclerotic heart disease of native coronary artery without angina pectoris; K76.0 Fatty (change of) liver, not elsewhere classified; Z98.0 Intestinal bypass and anastomosis status
CPT/HCPCS: 74160; Q9967

== ENCOUNTER → 2020-03-24 14:10 | Outpatient (CLI) | payer OTHER, SELFPAY ==
--- NOTE | 2020-03-24 14:11 | DI.CT.S_ITS ---
PROCEDURE: CT ABDOMEN W CON INDICATIONS: pancr ca TECHNIQUE: After the administration of oral and intravenous contrast, 5 mm thick sections acquired from the diaphragms to the iliac crests. 5 mm thick coronal and sagittal reformats were acquired. For radiation dose reduction, the following was used: automated exposure control, adjustment of mA and/or kV according to patient size. COMPARISON: [facility], CT, CT ABDOMEN W CON, 10/18/2019, 9:44. [facility], CT, CT ABDOMEN W CON, 07/30/2019, 11:19. [facility], CT, CT ABDOMEN W CON, 05/10/2019, 9:01. [facility], CT, CT ABDOMEN W CON, 12/31/2019, 10:05. FINDINGS: Image quality: Excellent. Lung bases: Lung bases are clear. Heart size is normal. Solid organs: Liver is normal in size and diffusely hypodense suggesting hepatic steatosis. Gallbladder is surgically absent . Biliary system is non dilated. Patient is status post Whipple procedure. The body and tail of the pancreas demonstrate normal enhancement. Spleen is normal in size and enhancement. No adrenal nodules. Kidneys are normal in size, without hydronephrosis. A low-density subcentimeter cystic lesion is present within the midpole of the right kidney. Peritoneum and bowel: Contrast enhanced bowel loops appear normal in caliber. No free fluid or air. Nodes and vessels: No retroperitoneal or mesenteric adenopathy by size criteria. Aorta and inferior vena cava are normal in size. Bones: No suspicious bony lesions. No vertebral body compression fractures. Miscellaneous: No ventral hernias. IMPRESSION: 1. Postoperative change status post Whipple. No findings to suggest tumor recurrence at this time. 2. Mild hepatic steatosis. Dictated by: Iraida Morales M.D. on 03/24/2020 at 16:56 Approved by: Iraida Morales M.D. on 03/24/2020 at 17:01
== END ==
PROVIDERS: PCP Internal Medicine; Referring Provider Internal Medicine; Visit Provider Internal Medicine Hematology & Oncology
DX: C25.9 Malignant neoplasm of pancreas, unspecified (principal)
CPT/HCPCS: 74160; Q9967

== ENCOUNTER → 2020-07-30 14:50 | Outpatient (CLI) | payer OTHER, SELFPAY ==
--- NOTE | 2020-07-30 14:51 | DI.CT.S_ITS ---
PROCEDURE: CT CHEST ABD PEL W CON INDICATIONS: pancreatic cancer TECHNIQUE: After the administration of oral and intravenous contrast, 5 mm thick sections acquired from the lung apices to the symphysis. 5 mm coronal and sagittal reformats were performed, with additional 7 mm coronal MIP reformats through the lungs. For radiation dose reduction, the following was used: automated exposure control, adjustment of mA and/or kV according to patient size. COMPARISON: [facility], CT, CT CHEST W CON, 02/12/2019, 13:06. [facility], CT, CT ABDOMEN W CON, 03/24/2020, 15:13. [facility], CT, CT ABDOMEN W CON, 12/31/2019, 10:05. [facility], CT, CT ABDOMEN W CON, 10/18/2019, 9:44. [facility], CT, CT ABDOMEN W CON, 07/30/2019, 11:19. FINDINGS: Image quality: Excellent. CHEST: Scattered subsegmental atelectasis and/or scarring. No focal consolidation. 1 mm nodule seen in the superior segment of the right lower lobe image 156/3. No pleural effusions or pneumothorax. Central and peripheral airways appear patent and normal in caliber. Mediastinum: Heart size is normal. Coronary artery calcifications are present. No pericardial effusion. No mediastinal or hilar adenopathy by size criteria. Thoracic aorta and central pulmonary arteries are normal in size. Esophagus is normal in caliber. No hiatal hernia. Chest wall: No axillary or supraclavicular adenopathy by size criteria. Thyroid is grossly unremarkable ABDOMEN: Solid organs: Liver is normal in size and enhancement. Gallbladder absent . Biliary system is non dilated. Pancreas enhances normally. Spleen is normal in size and enhancement. No adrenal nodules. Kidneys demonstrate normal size and enhancement, without hydronephrosis. Postsurgical changes again noted related to prior Whipple procedure. No free fluid or air. Nodes and vessels: No retroperitoneal or mesenteric adenopathy by size criteria. Aorta and inferior vena cava are normal in size. Miscellaneous: No ventral hernias. PELVIS: Genitourinary: Bladder wall thickness is normal. Miscellaneous: No inguinal hernias or adenopathy. Bones: No suspicious bony lesions. No vertebral body compression fractures. IMPRESSION: No specific evidence of active metastatic disease. Postsurgical changes as above Incidentally noted 1 mm nodule seen in the superior segment of the right lower lobe, which warrants continued observation on subsequent studies. Additional chronic and incidental findings as above. Dictated by: Pranay Moore M.D. on 07/30/2020 at 17:24 Approved by: Pranay Moore M.D. on 07/30/2020 at 17:37
== END ==
PROVIDERS: PCP Internal Medicine; Referring Provider Internal Medicine Hematology & Oncology; Visit Provider Internal Medicine Hematology & Oncology
DX: C25.9 Malignant neoplasm of pancreas, unspecified (principal); R91.1 Solitary pulmonary nodule
CPT/HCPCS: 71260; 74177; Q9967

== ENCOUNTER → 2020-09-03 15:11 | Outpatient (CLI) | payer OTHER, SELFPAY ==
--- NOTE | 2020-09-03 15:12 | DI.CT.S_ITS ---
PROCEDURE: CT CHEST ABD PEL W CON INDICATIONS: pancreatic cancer TECHNIQUE: After the administration of oral and intravenous contrast, 5 mm thick sections acquired from the lung apices to the symphysis. 5 mm coronal and sagittal reformats were performed, with additional 7 mm coronal MIP reformats through the lungs. For radiation dose reduction, the following was used: automated exposure control, adjustment of mA and/or kV according to patient size. COMPARISON: [facility], CT, CT ABDOMEN W CON, 03/24/2020, 15:13. [facility], CT, CT ABDOMEN W CON, 12/31/2019, 10:05. [facility], CT, CT ABDOMEN W CON, 10/18/2019, 9:44. [facility], CT, CT ABDOMEN W CON, 07/30/2019, 11:19. [facility], CT, CT ABDOMEN W CON, 05/10/2019, 9:01. [facility], CT, CT CHEST W CON, 02/12/2019, 13:06. [facility], [place] FUSION SKULL 2 THIGH, 02/21/2019, 15:50. [facility], CT, CT ABDOMEN PELVIS W CON, 01/15/2019, 10:28. [facility], CT, CT CHEST ABD PEL W CON, 07/30/2020, 15:38. FINDINGS: Image quality: Excellent. CHEST: Lungs and pleura: Small lung nodules are present. Nodule 1: 8.4 mm; series 5, image 213; RLL; spiculated; previously 6.6 cm. Nodule 2: 2 mm; series 5, image 111; RLL; unchanged. Nodule 3: 4 mm; series 5, image 110; LLL; previously 3 mm. Bilateral subpleural densities. No pleural effusions or pneumothorax. Central and peripheral airways appear patent and normal in caliber. Mediastinum: Heart size is normal. Mild coronary artery calcification. No pericardial effusion. No mediastinal or hilar adenopathy by size criteria. Thoracic aorta and central pulmonary arteries are normal in size. Esophagus is normal in caliber. Small hiatal hernia. Chest wall: No axillary or supraclavicular adenopathy by size criteria. Thyroid gland is normal . ABDOMEN: Solid organs: There are postsurgical changes related to Whipple's procedure. Remnant pancreas demonstrates normal enhancement without mass. No pancreatic duct dilation. There is an ill-defined hypodensity involving the horizontal segment of duodenum measuring 1.7 cm (series 4, image 64). This was not previously visualized. Liver is normal in size and enhancement. Gallbladder is surgically absent. Biliary system is non dilated. Pancreas enhances normally. Spleen is normal in size and enhancement. No adrenal nodules. Kidneys demonstrate normal size and enhancement, without hydronephrosis. Peritoneum and bowel: Bowel loops demonstrate normal wall thickness and caliber. No free fluid or air. Nodes and vessels: No retroperitoneal or mesenteric adenopathy by size criteria. Aorta and inferior vena cava are normal in size. Miscellaneous: Small fat containing umbilical hernia is noted. PELVIS: Genitourinary: Bladder wall thickness is normal. Miscellaneous: No inguinal hernias or adenopathy. Bones: No suspicious bony lesions. No vertebral body compression fractures. IMPRESSION: 1. Postsurgical changes related to Whipple's procedure. Pancreas enhances normally without recurrent mass. 2. There is an ill-defined 1.7 cm low-density area involving the horizontal segment of the duodenum (series 4, image 64). The clinical significance of the finding is uncertain. They could be caused by artifact or a mass. 3. There are 3 subcentimeter lung nodules. The 8.4 mm nodule in the right lower lobe has a spiculated appearance and is slightly increased in size since the last exam dated 07/30/2020, concerning for neoplasm. In this patient with known history of cancer, PET-CT would be helpful. Alternatively, a short-term follow-up CT may be obtained in 1-3 months. Dictated by: Gregory Dill M.D. on 09/04/2020 at 8:41 Approved by: Gregory Dill M.D. on 09/04/2020 at 9:17
== END ==
PROVIDERS: PCP Internal Medicine; Referring Provider Internal Medicine Hematology & Oncology; Visit Provider Internal Medicine Hematology & Oncology
DX: C25.0 Malignant neoplasm of head of pancreas (principal); R91.8 Other nonspecific abnormal finding of lung field
CPT/HCPCS: 71260; 74177; Q9967

== ENCOUNTER → 2021-05-13 12:48 | Outpatient (CLI) | payer OTHER, SELFPAY ==
--- NOTE | 2021-05-13 12:50 | DI.CT.S_ITS ---
PROCEDURE: CT CHEST ABD PEL W CON INDICATIONS: metastatic pancreatic cancer TECHNIQUE: After the administration of oral and intravenous contrast, axial sections acquired from the supraclavicular neck to the pubic symphysis. Coronal and sagittal reformats were performed. For radiation dose reduction, the following was used: automated exposure control, adjustment of mA and/or kV according to patient size. COMPARISON:[facility], [place], NE PET CT FUSION SKULL 2 THIGH, 01/14/2021, 8:45. [facility], CT, CT CHEST ABD PEL W CON, 09/03/2020, 16:13. FINDINGS: Image quality: Excellent. CHEST: Lower Neck: No enlarged lymph nodes. Thyroid: Homogeneous attenuation. Axillae: No enlarged lymph nodes. Chest Wall: Unremarkable. Lungs and Airways: No consolidation. Redemonstrated subpleural reticulation, most prominent in the lower lobes. Nodule 1: 9.5 mm; 3-221; right lower lobe; spiculated; previously 8.4 mm. Pleura: No pneumothorax or pleural effusions. Heart: Heart size is normal. No pericardial effusion. Coronary artery calcification. Thoracic Vessels: The aorta and pulmonary arteries demonstrate normal size. Mediastinum and Amelie: No enlarged lymph nodes. Esophagus: No wall thickening. Trace hiatal hernia. ABDOMEN: Liver: Unremarkable. Gallbladder: Cholecystectomy. Biliary ducts: Mild intrahepatic biliary duct dilatation with pneumobilia. Pancreas: Unremarkable. Spleen: Unremarkable. Adrenal Glands: Unremarkable. Kidneys and Ureters: Unremarkable. A few scattered hypoattenuating lesions are seen measuring up to 9 mm, most consistent with cysts. Stomach and Bowel: No evidence of intestinal obstruction. Redemonstrated suture material in the gastroduodenal region, compatible with history of Whipple. Moderate stool burden throughout the colon. Normal appearance of the appendix. Peritoneum: No abnormal intraperitoneal fluid. No free air. Ventral Wall: Small fat containing periumbilical hernia. Abdominal Nodes: No retroperitoneal or mesenteric adenopathy by size criteria. Vessels: Aorta and inferior vena cava are normal in size. PELVIS: Pelvic Organs: Enlargement the prostate, measuring 4.9 cm in transverse dimension. Bladder: Unremarkable. Pelvic Nodes: No enlarged lymph nodes. Miscellaneous: No inguinal hernias are seen. Bones: Unremarkable. Multifocal degenerative change. IMPRESSION: 1. Slightly increased pulmonary nodule in the right lower lobe as detailed above. Consider surveillance with PET-CT to ensure stability. 2. Interval development of intrahepatic pneumobilia, which may reflect recent intervention. 3. The previously reported low density area in the horizontal segment of the duodenum is not well appreciated. Consider correlation with endoscopy and/or endoscopic ultrasound as clinically warranted. Dictated by: Rashad Dorantes M.D. on 05/13/2021 at 15:41 Approved by: Rashad Dorantes M.D. on 05/13/2021 at 15:52
== END ==
PROVIDERS: PCP Internal Medicine; Referring Provider Internal Medicine Hematology & Oncology; Visit Provider Internal Medicine Hematology & Oncology
DX: C25.9 Malignant neoplasm of pancreas, unspecified (principal); R91.1 Solitary pulmonary nodule; K83.8 Other specified diseases of biliary tract; I25.10 Atherosclerotic heart disease of native coronary artery without angina pectoris; Z90.49 Acquired absence of other specified parts of digestive tract
CPT/HCPCS: 71260; 74177; Q9967

== ENCOUNTER → 2021-08-05 13:10 | Outpatient (CLI) | payer OTHER, SELFPAY ==
--- NOTE | 2021-08-05 13:10 | DI.CT.S_ITS ---
PROCEDURE: CT ABDOMEN WO/W CON INDICATIONS: Panceatic cancer TECHNIQUE: 4 phase scanning was performed. Non-contrast 5 mm axial sections acquired from the diaphragm to the iliac crests. Following the administration of intravenous contrast, 5 mm thick arterial-phase, portal venous-phase, and 5-minute delayed phase images were acquired through the liver. 5 mm thick coronal and sagittal reformats were performed. For radiation dose reduction, the following was used: automated exposure control, adjustment of mA and/or kV according to patient size. COMPARISON: [place], [place] PET CT FUSION SKULL 2 THIGH, 09/17/2020, 10:26. [facility], CT, CT ABDOMEN W CON, 03/24/2020, 15:13. [facility], CT, CT CHEST ABD PEL W CON, 09/03/2020, 16:13. [place], [place] PET CT FUSION SKULL 2 THIGH, 07/15/2021, 10:20. FINDINGS: Image quality: Excellent. Lung bases: 1.4 cm subpleural solid soft tissue nodule at the medial right lower lobe is noted. Minor adjacent subpleural ground-glass opacity. No pleural effusion. Heart size is normal. No hiatal hernia. Liver: There is intrahepatic biliary air. No calcifications. There are surgical changes of a prior Whipple procedure and a hepaticojejunostomy. A lesion to correspond to the FDG avid area along the medial margin of segment V just under the right hepatic vein is not identified by CT. There is a tiny nodule, outside the liver in this area which is relatively stable, measures about 5 mm, and is less likely to correspond to the FDG avid nodule. There is questionable arterial hyperenhancement on the CT from 05/10/19 in this area. No other suspicious liver lesions. Other solid organs: Gallbladder is surgically absent. Intrahepatic biliary air in the left lobe. The distal pancreas appears within normal limits with a few punctate calcifications in the tail. Spleen is normal in size and enhancement. No adrenal nodules. Both kidneys demonstrate normal size and enhancement, without hydronephrosis or nephrolithiasis. Small right corticomedullary cyst. Nodes and vessels: No retroperitoneal or mesenteric adenopathy by size criteria. Aorta and inferior vena cava are normal in size. Bowel and peritoneum: A stomach and gastrojejunostomy anastomosis appear normal. No visible small bowel obstruction. The visible loops of colon are normal. There is a normal appendix. There is trace, nonspecific fat stranding within the small bowel mesentery. No free fluid, fluid collections, or free air. Bones: No suspicious bony lesions. No vertebral body compression fractures. Miscellaneous: No ventral hernias. IMPRESSION: 1. No definite CT correlate to the PET-CT finding in segment V of the liver. 2. There is a 5 mm stable nodule, likely courtney hepatis lymph node which is immediately adjacent to the area in question. 3. Expected postsurgical changes of Whipple procedure. 4. No evidence of new metastatic disease. 5. Punctate pancreatic tail calcifications suggesting chronic pancreatitis. Dictated by: Gabby Turner M.D. on 08/05/2021 at 15:31 Approved by: Gabby Turner M.D. on 08/05/2021 at 16:02
== END ==
PROVIDERS: PCP Internal Medicine; Referring Provider Internal Medicine Hematology & Oncology; Visit Provider Internal Medicine Hematology & Oncology
DX: C25.9 Malignant neoplasm of pancreas, unspecified (principal); R91.1 Solitary pulmonary nodule; Z98.0 Intestinal bypass and anastomosis status; Z90.49 Acquired absence of other specified parts of digestive tract
CPT/HCPCS: 74170; Q9967

== ENCOUNTER → 2021-09-14 11:27 | Outpatient (CLI) | payer MEDICARE, OTHER, SELFPAY ==
--- NOTE | 2021-09-14 11:29 | DI.CT.S_ITS ---
PROCEDURE: CT CHEST WO CON INDICATIONS: pancreatic cancer TECHNIQUE: Noncontrast 5 mm thick sections acquired from the pulmonary apices to the posterior costophrenic angles. 1 mm lung window, 5 mm thick coronal and sagittal and 7 mm axial MIP reformats were then acquired. For radiation dose reduction, the following was used: automated exposure control, adjustment of mA and/or kV according to patient size. COMPARISON: [facility], CT, CT CHEST ABD PEL W CON, 05/13/2021, 13:50. FINDINGS: Image quality: Excellent. Lungs and pleura: No consolidation, pleural effusions or pneumothorax. Scattered subpleural reticulation. A 1.8 x 1.6 cm noncalcified nodule is seen in the medial aspect of the right lower lobe (3-222); previously measuring up to 9.5 mm. 9 x 6.1 mm noncalcified nodule in the superior aspect of the left lower lobe (3-114); previously measuring up to 7.4 mm. Central and peripheral airways are patent and normal in caliber. Mediastinum: Heart size is normal. No pericardial effusion. Coronary artery calcification. No mediastinal adenopathy by size criteria. Thoracic aorta and central pulmonary arteries are normal in size. A right courtney catheter is seen. Esophagus is normal in caliber. Trace hiatal hernia. Bones and chest wall: No suspicious bony lesions. No vertebral body compression fractures. No axillary or supraclavicular adenopathy by size criteria. Thyroid gland appears homogeneous . Abdomen: Visualized upper abdominal solid organs and bowel loops appear normal in the absence of contrast. IMPRESSION: 1. Increasing pulmonary nodules as detailed above, concerning for worsening metastatic disease. Dictated by: Rashad Dorantes M.D. on 09/14/2021 at 13:15 Approved by: Rashad Dorantes M.D. on 09/14/2021 at 13:23
== END ==
PROVIDERS: PCP Internal Medicine; Referring Provider Internal Medicine Hematology & Oncology; Visit Provider Internal Medicine Hematology & Oncology
DX: C25.9 Malignant neoplasm of pancreas, unspecified (principal); R91.8 Other nonspecific abnormal finding of lung field
CPT/HCPCS: 71250

== ENCOUNTER → 2021-10-19 12:54 | Outpatient (CLI) | payer MEDICARE, OTHER, SELFPAY ==
--- NOTE | 2021-10-19 12:56 | DI.CT.S_ITS ---
PROCEDURE: CT CHEST ABD PEL W CON INDICATIONS: metastatic pancreatic cancer TECHNIQUE: After the administration of oral and intravenous contrast, axial sections acquired from the supraclavicular neck to the pubic symphysis. Coronal and sagittal reformats were performed. For radiation dose reduction, the following was used: automated exposure control, adjustment of mA and/or kV according to patient size. COMPARISON:[facility], CT, CT ABDOMEN WO/W CON, 08/05/2021, 13:15. [facility], [place], [place] CT FUSION SKULL 2 THIGH, 07/15/2021, 10:20. [facility], CT, CT CHEST ABD PEL W CON, 05/13/2021, 13:50. FINDINGS: Image quality: Excellent. CHEST: Lower Neck: No enlarged lymph nodes. Thyroid: Unremarkable. Axillae: No enlarged lymph nodes. Chest Wall: Right-sided port with the catheter tip projecting at the upper 3rd of the SVC. Lungs and Airways: -Right cardiophrenic angle pulmonary nodule measuring 1.9 cm, (3/220), previously remeasured 1.2 cm. -Right lung base pulmonary nodule measuring 0.6 cm, (3/236), previously 0.5 cm. -Left upper lobe pulmonary nodule measuring 0.5 cm, (3/173), previously 0.1 cm. -Left lower lobe pulmonary nodule measuring 0.6 cm, (3/111), previously 0.6 cm. There is increased opacity which now abuts the pleural surface. No acute airspace opacity. Airways are clear. Pleura: No pneumothorax or pleural effusions. Heart: Heart size is normal. No pericardial effusion. Thoracic Vessels: The aorta and pulmonary arteries demonstrate normal size. No central pulmonary embolism. Mediastinum and Amelie: No enlarged lymph nodes. Esophagus: No wall thickening. No hiatal hernia. ABDOMEN: Liver: Possible hypodense foci in the liver. Gallbladder: Absent. Biliary ducts: Expected pneumobilia. Pancreas: Post Whipple procedure. Spleen: Unremarkable. Adrenal Glands: No nodule. Kidneys and Ureters: No hydronephrosis. Small cysts. Stomach and Bowel: No small bowel obstruction. Diverticulosis. The appendix is normal. Peritoneum: No abnormal intraperitoneal fluid. No free air. Ventral Wall: Small umbilical hernia. Abdominal Nodes: No retroperitoneal or mesenteric adenopathy by size criteria. Vessels: Aorta and inferior vena cava are normal in size. Moderate plaque. PELVIS: Pelvic Organs: Unremarkable. Bladder: Unremarkable. Pelvic Nodes: No enlarged lymph nodes. Miscellaneous: No inguinal hernias are seen. Bones: No suspicious lesion. IMPRESSION: 1. Several pulmonary nodules. 2 of which are increased in size. These are concerning for metastatic disease. 2. Post Whipple procedure. No free fluid. 3. Possible hypodensities in the liver. If feasible consider liver MRI with IV contrast for further evaluation. Dictated by: Dayron Garner M.D. on 10/19/2021 at 16:26 Approved by: Dayron Garner M.D. on 10/19/2021 at 16:43
== END ==
PROVIDERS: PCP Internal Medicine; Referring Provider Internal Medicine Hematology & Oncology; Visit Provider Internal Medicine Hematology & Oncology
DX: C25.0 Malignant neoplasm of head of pancreas (principal); R91.8 Other nonspecific abnormal finding of lung field
CPT/HCPCS: 71260; 74177; Q9967

== ENCOUNTER → 2021-10-28 14:19 | Outpatient (CLI) | payer MEDICARE, OTHER, SELFPAY ==
--- NOTE | 2021-10-28 14:21 | DI.MRI.S_ITS ---
PROCEDURE: MR ABDOMEN WO/W CON and MRCP. INDICATIONS: pancreatic cancer, questionable liver lesion TECHNIQUE: Coronal HASTE, axial 2D FLASH in- and [id number]; axial breath-hold T2 FSE with fat saturation from the hepatic dome to the iliac crests. Oblique coronal thin-slice and radial thick slab HASTE through the biliary system. Dynamic axial VIBE during administration of contrast. Post-contrast coronal VIBE or 2D FLASH with fat saturation from the hepatic dome to the iliac crests. Optional diffusion weighted imaging and ADC may be performed. MRCP sequences. COMPARISON: [facility], CT, CT ABDOMEN WO/W CON, 08/05/2021, 13:15. [facility], CT, CT CHEST ABD PEL W CON, 10/19/2021, 14:41. FINDINGS: Image quality: Excellent. Pancreas and biliary system: Post Whipple procedure. No significant pancreatic ductal dilatation. No mass or cystic lesion. Mild prominence of the intrahepatic bile ducts. Pneumobilia seen on recent CT. Solid organs: Liver is normal in size. There is asymmetric enhancement in the right lobe of the liver in the distribution of the right branch pulmonary vein. There is a small enhancing focus with possible restricted diffusion measuring 1.3 cm, (19/50). There is a 2nd enhancing focus in the right lobe of the liver more peripherally measuring 0.7 cm, (19/47). Gallbladder is absent.. Spleen is normal in size and enhancement. No adrenal nodules. Kidneys are normal in size and enhancement, without hydronephrosis. Tiny T2 hyperintense renal cysts. Nodes and vessels: No retroperitoneal or mesenteric adenopathy by size criteria. Aorta and inferior vena cava are normal in size. Bowel and peritoneum: Unenhanced bowel loops are normal in caliber throughout. No free fluid. Lung bases: No basal pleural effusions. Right lung base pulmonary nodule. Better seen on prior CT. Heart size is normal. Bones and soft tissues: No ventral hernias. Bone marrow is normal in overall signal. IMPRESSION: 1. Small enhancing foci in the right lobe of the liver. However, there is asymmetric enhancement in this region possibly related to altered blood flow in the right branch of the portal vein. This somewhat limits evaluation of these suspected lesions. There is high DWI signal which is concerning, specifically given the presence of metastatic disease in lungs. However, it is possible that this could be related to perfusion abnormality. Recommend close imaging surveillance. Multiphase liver CT may be more helpful given the improved spatial resolution and artifact. 2. Post Whipple procedure. No pancreatic ductal dilatation. 3. Pulmonary nodule at the right lung base. Dictated by: Dayron Garner M.D. on 10/28/2021 at 19:01 Approved by: Dayron Garner M.D. on 10/28/2021 at 19:14
== END ==
PROVIDERS: PCP Internal Medicine; Referring Provider Internal Medicine Hematology & Oncology; Visit Provider Internal Medicine Hematology & Oncology
DX: C25.0 Malignant neoplasm of head of pancreas (principal); R91.1 Solitary pulmonary nodule
CPT/HCPCS: 74183

== ENCOUNTER → 2021-11-20 13:41 | Outpatient (CLI) | payer MEDICARE, OTHER, SELFPAY ==
--- NOTE | 2021-11-20 13:42 | DI.CT.S_ITS ---
PROCEDURE: CT ABDOMEN LIVER PROTOCOL INDICATIONS: liver lesion, ? metastatic pancreatic cancer TECHNIQUE: 4 phase scanning was performed. Non-contrast 5 mm axial sections acquired from the diaphragm to the iliac crests. Following the administration of intravenous contrast, 5 mm thick arterial-phase, portal venous-phase, and 5-minute delayed phase images were acquired through the liver. 5 mm thick coronal and sagittal reformats were performed. For radiation dose reduction, the following was used: automated exposure control, adjustment of mA and/or kV according to patient size. COMPARISON: [facility], CT, CT CHEST ABD PEL W CON, 10/19/2021, 14:41. [facility], CT, CT SIM RADIATION THERAPY, 11/02/2021, 10:51. [facility], CT, CT JORGE, 11/16/2021, 14:03. [facility], MR, MR ABDOMEN WO/W CON, 10/28/2021, 14:24. FINDINGS: Image quality: Excellent. Lung bases: Spiculated mass at the posterior medial right lung base has increased in size and now measures 2.1 x 1.8 cm in the axial plane (previously measured 1.9 x 1.5 cm in the same plane on the study dated October 19, 2021). Liver: The liver is normal in size. There is a hypodense lesion within hepatic segment which measures 2.7 x 2.1 x 2.5 cm in diameter. This was not visualized on the CT dated October 19, 2021, but was likely visualized on the CT dated October 28, 2021. No other suspicious hepatic lesions. Other solid organs: Gallbladder is surgically absent. Biliary system is non dilated. Trace pneumobilia is redemonstrated, as before. Pancreas is normal in morphology. Spleen is normal in size and enhancement. No adrenal nodules. Both kidneys demonstrate normal size and enhancement, without hydronephrosis or nephrolithiasis. Nodes and vessels: No retroperitoneal or mesenteric adenopathy by size criteria. Aorta and inferior vena cava are normal in size. Bowel and peritoneum: Unenhanced bowel loops are normal in caliber. No free fluid or air. Bones: No suspicious bony lesions. No vertebral body compression fractures. Miscellaneous: No ventral hernias. IMPRESSION: 1. Subtle hypodense hepatic lesions suspicious for new hepatic metastasis as speculated on the comparison MRI dated October 28, 2021. No other findings to suggest new metastatic disease or tumor recurrence. Dictated by: Iraida Morales M.D. on 11/20/2021 at 14:35 Approved by: Iraida Morales M.D. on 11/20/2021 at 14:49
== END ==
PROVIDERS: PCP Internal Medicine; Referring Provider Internal Medicine Hematology & Oncology; Visit Provider Internal Medicine Hematology & Oncology
DX: C25.0 Malignant neoplasm of head of pancreas (principal); K76.89 Other specified diseases of liver
CPT/HCPCS: 74170; Q9967

== ENCOUNTER → 2022-03-08 11:28 | Outpatient (CLI) | payer MEDICARE, OTHER, SELFPAY ==
--- NOTE | 2022-03-08 11:29 | DI.CT.S_ITS ---
PROCEDURE: CT CHEST ABD PEL W CON INDICATIONS: Pancreas cancer TECHNIQUE: After the administration of oral and intravenous contrast, axial sections acquired from the supraclavicular neck to the pubic symphysis. Coronal and sagittal reformats were performed. For radiation dose reduction, the following was used: automated exposure control, adjustment of mA and/or kV according to patient size. COMPARISON: [facility], MR, MR ABDOMEN WO/W CON, 10/28/2021, 14:24. [facility], [place], [place] PET CT FUSION SKULL 2 THIGH, 12/23/2021, 10:17. [facility], CT, CT ABDOMEN LIVER PROTOCOL, 11/20/2021, 13:47. [facility], CT, CT CHEST ABD PEL W CON, 10/19/2021, 14:41. FINDINGS: Image quality: Excellent. CHEST: Lower Neck: No enlarged lymph nodes. Thyroid: Within normal limits. Axillae: No enlarged lymph nodes. Chest Wall: Right-sided port with the catheter tip at the middle 3rd of the SVC. Lungs and Airways: Compared to CT 10/19/2021. -Left lower lobe superior segment subpleural nodule measuring 1 cm, (/96), previously 1.1 cm. -Right lower lobe pulmonary nodule measuring 1.4 x 1.3 cm, (5/196), previously 1.8 x 1.6 cm. -Right lower lobe pulmonary nodule measuring 1 x 0.4 cm, (5/210), previously 0.9 x 0.6 cm. No new nodules. No acute airspace opacity. The airways are clear. Pleura: No pneumothorax or pleural effusions. Heart: Heart size is normal. Three-vessel coronary artery calcifications. No pericardial effusion. Thoracic Vessels: The aorta and pulmonary arteries demonstrate normal size. Mediastinum and Amelie: No enlarged lymph nodes. Esophagus: No wall thickening. No hiatal hernia. ABDOMEN: Liver: 2 subtle lesions in the right lobe of the liver identified. -right lobe 1.6 x 1.2 cm, (/65), previously 2 x 1.4 cm on 11/20/2021. -right inferior liver 0.8 x 0.7 cm, (2/69), previously 1.7 x 1.5 cm. No new lesions identified. Gallbladder: Absent. Biliary ducts: Subtle linear hypodensities in the region of the hepatic metastases which could represent small prominent ducts. Unenhanced hepatic veins or branch portal veins could also have this appearance. Minimal pneumobilia, decreased. Pancreas: Post Whipple procedure. No hypoenhancing mass is identified. No pancreatic ductal dilatation appreciated. Spleen: No splenomegaly. Adrenal Glands: No nodule. Kidneys and Ureters: No hydronephrosis. Tiny right renal cysts which are too small to further characterize are unchanged. Stomach and Bowel: No small bowel obstruction. A few colonic diverticuli. Normal appendix. Stomach is within normal limits. Peritoneum: No abnormal intraperitoneal fluid. No free air. Ventral Wall: No hernia. Midline abdominal scar. Abdominal Nodes: No retroperitoneal or mesenteric adenopathy by size criteria. Vessels: Aorta and inferior vena cava are normal in size. PELVIS: Pelvic Organs: Unremarkable. Bladder: Unremarkable. Pelvic Nodes: No enlarged lymph nodes. Miscellaneous: No inguinal hernias are seen. Bones: No suspicious lesion. IMPRESSION: 1. No new metastatic disease. 2. A few pulmonary metastases. One of which is mildly decreased at the right lower lobe. 3. Two hepatic lesions are decreased in size. 4. Post Whipple procedure. 5. No adenopathy. No suspicious osseous lesion. Dictated by: Dayron Garner M.D. on 03/08/2022 at 12:47 Approved by: Dayron Garner M.D. on 03/08/2022 at 13:26
== END ==
PROVIDERS: Referring Provider Internal Medicine Hematology & Oncology; Visit Provider Internal Medicine Hematology & Oncology
DX: C25.9 Malignant neoplasm of pancreas, unspecified (principal); R91.8 Other nonspecific abnormal finding of lung field; K76.9 Liver disease, unspecified
CPT/HCPCS: 71260; 74177; Q9967

== ENCOUNTER → 2022-05-26 12:10 | Outpatient (CLI) | payer OTHER, SELFPAY ==
--- NOTE | 2022-05-26 12:12 | DI.CT.S_ITS ---
PROCEDURE: CT CHEST ABD PEL W CON INDICATIONS: pancreatic cancer TECHNIQUE: After the administration of oral and intravenous contrast, axial sections acquired from the supraclavicular neck to the pubic symphysis. Coronal and sagittal reformats were performed. For radiation dose reduction, the following was used: automated exposure control, adjustment of mA and/or kV according to patient size. COMPARISON: [facility], CT, CT CHEST ABD PEL W CON, 03/08/2022, 12:59. FINDINGS: Image quality: Excellent. CHEST: Lower Neck: No enlarged lymph nodes. Thyroid: The visible portion of the thyroid gland is normal. Axillae: No enlarged lymph nodes. Chest Wall: No suspicious soft tissue masses. Right chest MediPort. Lungs and Airways: Small patchy consolidation and bronchial wall thickening in the medial right lower lobe with trace ground-glass opacity. Elsewhere, there are a few small centralized patches of ground-glass opacity. Mild linear atelectasis in the lingula. Stable pleural-based spiculated nodule superior segment left lower lobe and similar new pleural-based opacity in the superior segment right lower lobe same level. Medial right lower lobe pleural-based nodule is now incorporated into the small consolidation. Pleura: No pneumothorax or pleural effusions. Heart: Heart size is normal. Mild to moderate coronary calcification. No pericardial effusion. Thoracic Vessels: The aorta and pulmonary arteries demonstrate normal size. Mediastinum and Amelie: No enlarged lymph nodes. Esophagus: No wall thickening. No hiatal hernia. ABDOMEN: Liver: Increased size of a posterior segment six hypodensity now measuring 1.4 cm, previously 0.8 cm (2/60). Increased size of more inferior segment six lesion measuring 2.0 cm, previously 0.9 cm (2/63). Gallbladder: Surgically absent. Biliary ducts: Nondilated. Pancreas: Surgical changes of Whipple procedure. Punctate calcifications in the pancreatic tail. Spleen: Slight increase in AP diameter of the spleen now measuring 16.3 cm, previously 15.2 cm. Adrenal Glands: No nodules. Kidneys and Ureters: Symmetric enhancement. No nephrolithiasis or hydronephrosis. No hydroureter. Stomach and Bowel: Other than surgical changes of Whipple procedure, stomach and bowel loops are normal. Normal appendix. Peritoneum: No abnormal intraperitoneal fluid. No free air. Ventral Wall: Tiny umbilical and supraumbilical fat containing ventral hernias. Abdominal Nodes: Small periduodenal lymph nodes, stable size, specifically , measuring 0.9 cm. Vessels: Aorta and inferior vena cava are normal in size. PELVIS: Pelvic Organs: Unremarkable. Bladder: Unremarkable. Pelvic Nodes: No enlarged lymph nodes. Miscellaneous: No inguinal hernias are seen. Bones: No suspicious bone lesions. IMPRESSION: 1. Small right lower lobe medial consolidation incorporating one of the previously seen nodules may be acute given mild bronchial thickening. 2. No new pulmonary nodules. 3. Increased size of liver hypodensities. This may be in part due to differences in phase of IV contrast compared to the prior CT scans. 4. Increased splenomegaly. 5. Prior Whipple procedure with punctate calcifications suggesting remote chronic pancreatitis in the tail. 6. Stable shoddy periduodenal/mesenteric lymph nodes notable for presence rather than size. Continued attention is recommended. No other adenopathy. Dictated by: Gabby Turner M.D. on 05/27/2022 at 7:40 Approved by: Gabby Turner M.D. on 05/27/2022 at 8:23
== END ==
PROVIDERS: Referring Provider Internal Medicine Hematology & Oncology; Visit Provider Internal Medicine Hematology & Oncology
DX: C25.0 Malignant neoplasm of head of pancreas (principal); R91.8 Other nonspecific abnormal finding of lung field; R16.1 Splenomegaly, not elsewhere classified; I25.10 Atherosclerotic heart disease of native coronary artery without angina pectoris; Z90.49 Acquired absence of other specified parts of digestive tract
CPT/HCPCS: 71260; 74177; Q9967

== ENCOUNTER → 2022-11-23 09:59 | Outpatient (CLI) | payer OTHER, SELFPAY ==
--- NOTE | 2022-11-23 11:00 | DI.CT.S_ITS ---
PROCEDURE: CT CHEST ABD PEL W CON INDICATIONS: pancreatic cancer TECHNIQUE: After the administration of oral and intravenous contrast, axial sections acquired from the supraclavicular neck to the pubic symphysis. Coronal and sagittal reformats were performed. For radiation dose reduction, the following was used: automated exposure control, adjustment of mA and/or kV according to patient size. COMPARISON: [facility], CT, CT CHEST ABD PEL W CON, 05/26/2022, 13:45. FINDINGS: CHEST: Lower Neck: No enlarged lymph nodes. Axillae: No enlarged lymph nodes. Chest Wall: Right chest port present with tip of the catheter terminating at the mid SVC. Lungs: Small right pleural effusion, increased. Possible segmental right lower lobe pulmonary emboli. Adjacent irregular right lower lobe density, approximately 3.5 cm (3/204) new/increased. Few small pulmonary nodules present also new or increased, for example 8 mm at the left lower lobe (3/161) not definitively seen previously. Heart: No pericardial effusion. Multivessel coronary artery calcifications and/or stents. Thoracic Vessels: The aorta and pulmonary arteries demonstrate normal size. Mediastinum and Amelie: No enlarged lymph nodes. Esophagus: No wall thickening. ABDOMEN: Liver: Anterior approach percutaneous catheter, pigtail terminates at the central liver, new since the prior exam. Newly apparent irregular/lobulated region of hypoattenuation within the posterior right lobe of the liver, approximately 9.5 cm (2/61) unclear if this represents interval increase in size of previously demonstrated right lobe hypodensities or a new lesion/collection. Gallbladder: Absent. Biliary ducts: A metallic bile duct stent is present. Intrahepatic pneumobilia present. Newly apparent intrahepatic ductal dilation upstream to the posterior right lobe liver lesion/collection. Pancreas: Prior Whipple procedure. Similar appearance of the remaining pancreas. Spleen: Splenomegaly. Spleen measures 17.6 cm anterior-posterior, previously 16.5 cm. Adrenal Glands: Unremarkable. Kidneys and Ureters: No hydronephrosis. Stomach and Bowel: Prior Whipple procedure. No evidence of mechanical small bowel obstruction. Possible 1.3 cm polypoid structure along the lesser curvature of the stomach intraluminal (2/55). Peritoneum: Trace amount of abdominal free fluid. Appearance of peritoneal thickening/nodularity, omental nodularity most pronounced at the right abdomen/adjacent to the inferior liver, concerning for developing carcinomatosis. Ventral Wall: Small fat containing supraumbilical ventral hernia, now containing a small soft tissue nodule (2/), potential metastatic disease. Abdominal Nodes: No retroperitoneal or mesenteric adenopathy by size criteria. Vessels: Aorta and inferior vena cava are normal in size. PELVIS: Pelvic Organs: Unremarkable. Bladder: Unremarkable. Pelvic Nodes: No enlarged lymph nodes. Bones: Multilevel degenerative change of the visualized spine. IMPRESSION: 1. Newly apparent irregular/lobulated region of hypoattenuation within the posterior right lobe of the liver, approximately 9.5 cm, possible hepatic abscess, metastatic disease not excludable. 2. Possible right lower lobe segmental pulmonary emboli. Newly apparent adjacent consolidative opacity, nonspecific, possible pulmonary infarct, atelectasis, aspiration, pneumonia, metastatic disease. Attention on follow-up is recommended. 3. Small pulmonary nodules, new/increased, concerning for metastatic disease. 4. Possible changes of peritoneal carcinomatosis. Attention on follow-up recommended. 5. Possible 1.3 cm polypoid structure within the lumen of the stomach along the lesser curvature in, versus artifact such as from ingested material. Attention on follow-up recommended, upper endoscopy could be performed as indicated. Impression #[address] Bolton by Dr. Ramirez at 1703 hours 11-23-22 Dictated by: Michael Ramirez M.D. on 11/23/2022 at 16:53 Approved by: Michael Ramirez M.D. on 11/23/2022 at 17:31
== END ==
PROVIDERS: Referring Provider Internal Medicine Hematology & Oncology; Visit Provider Internal Medicine Hematology & Oncology
DX: C25.0 Malignant neoplasm of head of pancreas (principal); J90 Pleural effusion, not elsewhere classified; I25.10 Atherosclerotic heart disease of native coronary artery without angina pectoris; R16.1 Splenomegaly, not elsewhere classified; R91.8 Other nonspecific abnormal finding of lung field; K43.9 Ventral hernia without obstruction or gangrene
CPT/HCPCS: 71260; 74177

== ENCOUNTER 2022-12-17 14:17 | Inpatient (IN) | payer OTHER, SELFPAY ==
[2022-12-17] VITALS (52 sets, daily range): BP systolic 82–147; BP diastolic 49–78; PULSE 62–100; RESP 10–33; TEMP 36.6–39.1; O2SAT 85–100; BMI 26.2
--- NOTE | 2022-12-17 15:16 | DI.RAD.S_ITS ---
PROCEDURE: XR CHEST 1V INDICATIONS: suspected sepsis TECHNIQUE: One view of the chest was acquired. COMPARISON: [facility], CR, XR CHEST 2V, 06/17/2022, 10:06. [facility], CR, XR CHEST 1V, 03/19/2019, 14:57. FINDINGS: Surgical changes and devices: Port-A-Cath from right-sided approach extends with tip in the distal SVC Lungs and pleura: Lungs are difficult to accurately assess due to reduced inspiratory volume, left greater than right. No definite pneumonia when this is taken into account.. No pleural effusions or pneumothorax. Mediastinum: Mediastinal contours appear normal. Heart size is normal. Bones and chest wall: No suspicious bony lesions. Overlying soft tissues appear unremarkable. IMPRESSION: Port-A-Cath positioning normal, prominent reduced inspiratory volume, left greater than right. Dictated by: Barron Perales M.D. on 12/17/2022 at 16:12 Approved by: Barron Perales M.D. on 12/17/2022 at 16:13
[2022-12-17 15:47] LABS: Hematocrit 27.5 % (41-53); Mean Corpuscular HGB Conc 32.8 % (30-36); Mean Corpuscular Hemoglobin 27.4 PG (26-34); Mean Corpuscular Volume 83.4 fL (80-100); Platelet Count 49 X10^3/uL (150-400); Red Blood Cell Count 3.29 X10^6/uL (4.5-5.9)
[2022-12-17 15:49] LABS: Influenza A - CEPHEID Flu A NEGATIVE (NEGATIVE); Influenza B - CEPHEID Flu B NEGATIVE (NEGATIVE); Respiratory Syncytial Virus Negative (Negative)
[2022-12-17 15:56] LABS: Alanine Aminotransferase 28 IU/L (<50); Albumin Globulin Ratio 0.8 (1.0-2.8); Alkaline Phosphatase 373 U/L (38-126); Aspartate Aminotransferase 49 IU/L (17-59); BUN Creatinine Ratio 14.8 (6-22); Bilirubin Total 1.2 mg/dL (0.2-1.3); Blood Urea Nitrogen 8 mg/dL (9-20); Calcium 8.1 mg/dL (8.4-10.2); Carbon Dioxide 33 mmol/L (22-32); Chloride 94 mmol/L (98-107); Estimated Glomerular Filt Rate > 60 mL/min (>60); Globulin 3.8 g/dL (1.7-4.1); Glucose 96 mg/dL (70-100); HEMOLYSIS < 15 (0-50); Lactate (Lactic Acid) 2.8 mmol/L (0.7-2.1); Potassium 3.2 mmol/L (3.4-5.1); Sodium 134 mmol/L (137-145); Total Protein 6.8 g/dL (6.3-8.2)
[2022-12-17] MEDS: SODIUM CHLORIDE 0.9% 1,000 ML 1000 ML IV (15:56)
[2022-12-17 15:58] LABS: Lipase < 10 U/L (23-300)
[2022-12-17 15:59] LABS: INR 1.5 (0.9-1.3); Prothrombin Time 16.8 SECONDS (10.1-12.7)
[2022-12-17 16:00] LABS: COVID-19 CEPHEID 4-PLEX PCR Negative (Negative)
[2022-12-17 16:02] LABS: PTT Partial Thromboplastin Tim 25 SECONDS (26-36)
[2022-12-17 16:13] LABS: Add Manual Diff / Slide Review YES; Procalcitonin 0.33 ng/mL (<0.5); White Blood Cell Count 1.4 X10^3/uL (4.5-11.0)
[2022-12-17 16:24] LABS: Neutrophils Absolute Manual 924 /uL (3000-5900); Total Cells Counted 100
[2022-12-17 16:25] LABS: Anisocytosis 1+; Platelet Estimate Decreased on smear
[2022-12-17] MEDS: ACETAMINOPHEN 325 MG TABLET 975 MG PO (17:07)
[2022-12-17] MEDS: SODIUM CHLORIDE 0.9% 2,422.17 ML 807.39 ML IV (17:07)
[2022-12-17] MEDS: CEFEPIME 2 GM in SODIUM CHLORIDE 0.9% 100 ML IV (17:08)
[2022-12-17] MEDS: POTASSIUM CHLORIDE 20 MEQ/15 ML UDC 40 MEQ PO (17:12)
[2022-12-17] MEDS: ONDANSETRON 4 MG/2 ML INJ IV (17:14)
[2022-12-17 17:32] LABS: Reflexed Lactate in 2 Hours Y
--- NOTE | 2022-12-17 18:04 | DI.CT.S_ITS ---
PROCEDURE: CT CHEST ABD PEL W CON INDICATIONS: sepsis, biliary drain 6 weeks ago. chemo pancreatic ca TECHNIQUE: After the administration of intravenous contrast, 5 mm thick sections acquired from the lung apices to the symphysis. 5 mm coronal and sagittal reformats were performed, with additional 7 mm MIP reformats through the lungs. For radiation dose reduction, the following was used: automated exposure control, adjustment of mA and/or kV according to patient size. COMPARISON: [facility], CT, CT CHEST ABD PEL W CON, 11/23/2022, 11:04. FINDINGS: Image quality: Excellent. CHEST: Lungs and pleura: Mild reticulonodular pulmonary opacity. Right upper lobe pulmonary nodule measuring 6 mm diameter. Multiple smaller bilateral pulmonary nodules are present. Airspace opacity within the right lung base and left upper lobe posteriorly.. No pleural effusions or pneumothorax. Central and peripheral airways appear patent and normal in caliber. Mediastinum: Heart size is normal. Calcification of the coronary vasculature is present. No pericardial effusion. No mediastinal or hilar adenopathy by size criteria. Thoracic aorta and central pulmonary arteries are normal in size. Esophagus is normal in caliber. No hiatal hernia. Chest wall: No axillary or supraclavicular adenopathy by size criteria. Thyroid gland is within normal limits . ABDOMEN: Solid organs: Increased right hepatic lobe mass measuring roughly 11 cm, which encases and possibly invades a metallic biliary stent. Gallbladder is not seen . No change in mild biliary ductal dilatation. Increased, moderate pneumobilia. Pancreas enhances normally. Spleen is enlarged. No adrenal nodules. Kidneys demonstrate normal size and enhancement, without hydronephrosis. Peritoneum and bowel: Bowel loops demonstrate normal wall thickness and caliber. No pneumoperitoneum. Small amount of ascites. No change in peritoneal nodularity and ascites, consistent with peritoneal carcinomatosis. Nodes and vessels: No retroperitoneal or mesenteric adenopathy by size criteria. Aorta and inferior vena cava are normal in size. Miscellaneous: No ventral hernias. PELVIS: Genitourinary: Bladder wall thickness is normal. Miscellaneous: No inguinal hernias or adenopathy. Bones: No suspicious bony lesions. No vertebral body compression fractures. IMPRESSION: 1. Increased right hepatic lobe mass which appears to encase the biliary stent. 2. Bilateral pneumonia. 3. Mild degree of pulmonary metastatic disease. 4. Coronary artery disease. 5. Increased pneumobilia, possibly secondary to cholangitis. 6. No change in peritoneal nodularity and fluid, suggestive of peritoneal carcinomatosis. 7. Splenomegaly. Dictated by: Gagan Carmichael M.D. on 12/17/2022 at 19:15 Approved by: Gagan Carmichael M.D. on 12/17/2022 at 19:19
[2022-12-17] MEDS: metroNIDAZOLE 500 MG/100 ML PIGGYBACK 100 MG IV (18:20)
[2022-12-17 18:25] LABS: Lactate 2HR (Lactic Acid Rflx) 1.4 mmol/L (0.7-2.1)
--- NOTE | 2022-12-17 19:02 | ED_ITS ---
HPI - Sepsis <Kate Shannon DO - Last Filed: 12/18/22 09:02> General Chief Complaint: Fever Mode of arrival: Ambulatory Source: patient Limitations: no limitations Evaluation Sepsis Screen: Meets SIRS Criteria Sepsis Infection Criteria Present: None Narrative: 57-year-old male with known adenocarcinoma of the pancreas with prior Whipple, patient had a recent attempt of biliary duct stent placement was unsuccessful and had a drain placed which was removed about 6 weeks ago. Patient states he had dose of chemo approximately 2 weeks ago he would not had any for some time prior to that but did have neutropenia and low platelets after his last chemo. He developed fever today. He is had some muscle aches. He describes mild headache, no neck pain, he denies any nasal congestion or cold or cough symptoms. No chest, no shortness of breath. He has not had any nausea. He had 1 episode of vomiting last night after eating a large meal of chilling and lying down. Patient denies any diarrhea, he is had mild constipation but had a bowel movement today. Denies dysuria urgency or frequency. Denies any new swelling in extremities. Denies any rash or skin changes. He is anticoagulated on apixaban, atorvastatin, he is on insulin daily long and short-acting. He is on medication for chronic pain. No known drug allergies. Former smoker, no alcohol, no illicit occasional CVD. He is accompanied by family. His primary care is through the [facility] on [facility]. His oncologist is Dr. Hammond at [facility]. Review of Systems <Kate Shannon DO - Last Filed: 12/18/22 09:02> Review of Systems ROS Unobtainable: All systems reviewed & are unremarkable except as noted in HPI and below Patient History <Kate Shannon DO - Last Filed: 12/18/22 09:02> Medical History (Updated 12/18/22 @ 01:43 by Denisa Jhaveri DO) Adenocarcinoma of head of pancreas (~01/2019) Diabetes Hematochezia (01/15/19) HLD (hyperlipidemia) Pancytopenia due to chemotherapy Surgical History S/P ERCP (01/18/19) Social History household members: none Smoking Status: Former smoker Smoking Status: Former smoker Substance Use Type: does not use Exam <DO Yuridia Marks Last Filed: 12/18/22 09:02> Narrative Exam Narrative: GEN: Pale-appearing male, alert and oriented x 3, patient appears to be in mild distress. HEENT: Atraumatic, pupils are equal round reactive to light, extraocular movements are intact, nares are clear, there is no conjunctival pallor. Throat is clear without any exudates, erythema, tonsillar enlargement or uvular deviation HEART: Regular rate and rhythm without murmur, clicks, rubs. No carotid bruits, pulses are equal in upper and lower extremities LUNGS:Lungs clear to auscultation, no wheezes, rales, crackles, chest moves symmetrically, no tachypnea. No accessory muscle use. Speaks in full sentences. ABD:bowel sounds normal, soft, non-tender, non-distended, no guarding, rebound, rigidity, no masses noted, no hepatosplenomegaly :No CVA tenderness MSCL: Non-tender, no muscle atrophy, muscles strength 5/5 upper and lower extremities, full range of motion NEURO:CN 2-12 intact, sensation normal SKIN: No rash, erythema or other skin changes noted Initial Vital Signs Initial Vital Signs: Vital Signs Temperature 102.4 F H 12/17/22 14:41 Pulse Rate 97 H 12/17/22 14:41 Respiratory Rate 20 12/17/22 14:41 Blood Pressure 107/67 12/17/22 14:41 Pulse Oximetry 96 12/17/22 14:41 Oxygen Delivery Method Room Air 12/17/22 14:41 <Kulwinder Reich DO - Last Filed: 12/18/22 00:09> Initial Vital Signs Initial Vital Signs: Vital Signs Temperature 102.4 F H 12/17/22 14:41 Pulse Rate 97 H 12/17/22 14:41 Respiratory Rate 20 12/17/22 14:41 Blood Pressure 107/67 12/17/22 14:41 Pulse Oximetry 96 12/17/22 14:41 Oxygen Delivery Method Room Air 12/17/22 14:41 Course <Kate Shannon DO - Last Filed: 12/18/22 09:02> Orders Ordered: Acetaminophen (Acetaminophen 325 Mg Tablet) 650 mg PO Q6H PRN PRN Reason: Fever/Mild Pain (1-3) Hydrocodone Bitart/Acetaminophen (Hydrocodone/Acet 5/325 Tablet) 1 tab PO Q4H PRN PRN Reason: Pain, Moderate (4-6) Last Admin: 12/18/22 04:22 Dose: 1 tab Documented By: JUAN C Apixaban (Apixaban 5 Mg Tablet) 5 mg PO BID [facility] Last Admin: 12/18/22 08:14 Dose: 5 mg Documented By: Admin: 12/18/22 02:44 Dose: 5 mg Documented By: JUAN C Atorvastatin Calcium (Atorvastatin 20 Mg Tablet) 40 mg PO DAILY [facility] Last Admin: 12/18/22 08:14 Dose: 40 mg Documented By: MOHSEN Baclofen (Baclofen 10 Mg Tablet) 10 mg PO TID PRN PRN Reason: Hiccups Last Admin: 12/18/22 02:43 Dose: 10 mg Documented By: JUAN C Dextrose (Dextrose 50 % In Water 25 Gm/50 Ml Syringe) 25 gm IV PRN PRN PRN Reason: Hypoglycemia Gabapentin (Gabapentin 300 Mg Capsule) 300 mg PO TID [facility] Last Admin: 12/18/22 08:14 Dose: 300 mg Documented By: MOHSEN NOREPINEPHRINE BITARTRATE/D5W (Levophed) 4 mg in 250 mls @ 32.403 mls/hr IV TITRATE DEMETRA; Protocol Last Titration: 12/17/22 20:31 Dose: 0 mcg/kg/min, 0 mls/hr Documented By: Titration: 12/17/22 19:57 Dose: 0.02 mcg/kg/min, 7.5 mls/hr Documented By: Admin: 12/17/22 19:39 Dose: 0.05 mcg/kg/min, 15 mls/hr Documented By: RB Sodium Chloride (Normal Saline 0.9%) 1,000 mls @ 100 mls/hr IV CONT DEMETRA Stop: 12/18/22 12:00 Last Admin: 12/18/22 01:52 Dose: 100 mls/hr Documented By: JUAN C Cefepime HCl 2 gm/ Sodium (Chloride) 100 mls @ 200 mls/hr IV Q8H [facility] Last Infusion: 12/18/22 02:34 Dose: 0 mls/hr Documented By: JUAN C Admin: 12/18/22 01:52 Dose: 200 mls/hr Documented By: JUAN C Insulin Glargine (Insulin Glargine 100 Unit/Ml 3ml Pen) 15 unit SUBCUT BID [facility] Last Admin: 12/18/22 08:14 Dose: 15 unit Documented By: MOHSEN Co-signed By: BALTAZAR Insulin Human Lispro (Insulin Lispro 100 Unit/Ml 3ml Vial) 0 unit SUBCUT ACHS [facility]; Protocol Last Admin: 12/18/22 08:03 Dose: Not Given Documented By: MOHSEN Lorazepam (Lorazepam 0.5 Mg Tablet) 0.5 mg PO BEDTIME PRN PRN Reason: insomina Naloxone HCl (Naloxone 0.4 Mg/Ml Vial) 0.2 mg IV Q2MIN PRN PRN Reason: Opiate Reversal Non-Formulary Medication (Durrxi-Atdrsfaf-Ftmorvn) 1 cap PO DAILY [facility] Last Admin: 12/18/22 08:51 Dose: Not Given Documented By: MOHSEN Ondansetron HCl (Ondansetron 4 Mg Odt) 4 mg SL NOW PRN PRN Reason: Nausea And Vomiting Discontinued Medications Acetaminophen (Acetaminophen 325 Mg Tablet) 975 mg PO NOW ONE Stop: 12/17/22 17:02 Last Admin: 12/17/22 17:07 Dose: 975 mg Documented By: HAYDEN Sodium Chloride (Normal Saline 0.9%) 1,000 mls @ 1,000 mls/hr IV BOLUS ONE Stop: 12/17/22 16:15 Last Infusion: 12/17/22 17:05 Dose: 0 mls/hr Documented By: Admin: 12/17/22 15:56 Dose: 1,000 mls/hr Documented By: TERRY Cefepime HCl 2 gm/ Sodium (Chloride) 100 mls @ 200 mls/hr IV NOW ONE Stop: 12/17/22 17:02 Last Infusion: 12/17/22 18:10 Dose: 0 mls/hr Documented By: Admin: 12/17/22 17:08 Dose: 200 mls/hr Documented By: HAYDEN Sodium Chloride (Normal Saline 0.9%) 2,422.17 mls @ 807.39 mls/hr 30 ml/kg infuse over 3 hr (2422.17 ml) IV NOW ONE Stop: 12/17/22 20:02 Last Infusion: 12/17/22 19:57 Dose: 0 mls/hr Documented By: Admin: 12/17/22 17:07 Dose: 807.39 mls/hr Documented By: HAYDEN Metronidazole (Flagyl) 500 mg in 100 mls @ 100 mls/hr IV NOW ONE Stop: 12/17/22 19:04 Last Infusion: 12/17/22 19:22 Dose: 0 mls/hr Documented By: Admin: 12/17/22 18:20 Dose: 100 mls/hr Documented By: TERRY Ondansetron HCl (Ondansetron 4 Mg/2 Ml Inj) 4 mg IV NOW PRN PRN Reason: Nausea And Vomiting Last Admin: 12/17/22 17:14 Dose: 4 mg Documented By: TERRY Potassium Chloride (Potassium Chloride 20 Meq/15 Ml Udc) 40 meq PO NOW ONE Stop: 12/17/22 17:04 Last Admin: 12/17/22 17:12 Dose: 40 meq Documented By: TERRY Vital Signs Vital signs: Vital Signs - 8 hr 12/17/22 16:15 12/17/22 17:07 12/17/22 18:32 Temperature 101.7 F H 98 F Pulse Rate 88 Respiratory Rate 23 Blood Pressure Pulse Oximetry 97 Oxygen Delivery Method Oxygen Flow Rate 12/17/22 16:30 12/17/22 16:30 12/17/22 16:45 Temperature Pulse Rate 88 87 Respiratory Rate 27 H 28 H Blood Pressure 99/55 L Pulse Oximetry 97 97 Oxygen Delivery Method Oxygen Flow Rate 12/17/22 17:00 12/17/22 17:00 12/17/22 17:15 Temperature Pulse Rate 89 86 Respiratory Rate 32 H 26 H Blood Pressure 106/63 Pulse Oximetry 97 97 Oxygen Delivery Method Oxygen Flow Rate 12/17/22 17:30 12/17/22 17:43 12/17/22 17:43 Temperature Pulse Rate 85 84 Respiratory Rate 30 H 27 H Blood Pressure 97/58 L Pulse Oximetry 98 98 Oxygen Delivery Method Oxygen Flow Rate 12/17/22 17:45 12/17/22 18:00 12/17/22 18:07 Temperature Pulse Rate 84 85 90 Respiratory Rate 25 H 10 L 33 H Blood Pressure Pulse Oximetry 97 96 96 Oxygen Delivery Method Oxygen Flow Rate 12/17/22 18:07 12/17/22 18:15 12/17/22 18:16 Temperature Pulse Rate 92 H 100 H Respiratory Rate 18 30 H Blood Pressure 95/55 L Pulse Oximetry 97 96 Oxygen Delivery Method Oxygen Flow Rate 12/17/22 18:16 12/17/22 18:30 12/17/22 18:30 Temperature Pulse Rate 79 Respiratory Rate 17 Blood Pressure 92/55 L 95/52 L Pulse Oximetry 97 Oxygen Delivery Method Oxygen Flow Rate 12/17/22 18:58 12/17/22 18:59 12/17/22 18:59 Temperature Pulse Rate 80 79 Respiratory Rate 14 Blood Pressure 95/56 L Pulse Oximetry 97 Oxygen Delivery Method Oxygen Flow Rate 12/17/22 19:00 12/17/22 19:00 12/17/22 19:14 Temperature Pulse Rate 79 Respiratory Rate 14 Blood Pressure 92/56 L 90/57 L Pulse Oximetry 97 Oxygen Delivery Method Oxygen Flow Rate 12/17/22 19:14 12/17/22 19:15 12/17/22 19:15 Temperature Pulse Rate 86 87 Respiratory Rate 25 H 28 H Blood Pressure 87/51 L Pulse Oximetry 97 97 Oxygen Delivery Method Oxygen Flow Rate 12/17/22 19:21 12/17/22 19:21 12/17/22 19:25 Temperature Pulse Rate 73 71 Respiratory Rate 19 15 Blood Pressure 84/50 L Pulse Oximetry 96 96 Oxygen Delivery Method Oxygen Flow Rate 12/17/22 19:25 12/17/22 19:30 12/17/22 19:30 Temperature Pulse Rate 72 Respiratory Rate 14 Blood Pressure 82/49 L 82/50 L Pulse Oximetry 97 Oxygen Delivery Method Oxygen Flow Rate 12/17/22 19:35 12/17/22 19:35 12/17/22 19:40 Temperature Pulse Rate 72 70 Respiratory Rate 19 14 Blood Pressure 90/57 L Pulse Oximetry 97 96 Oxygen Delivery Method Oxygen Flow Rate 12/17/22 19:40 12/17/22 19:45 12/17/22 19:45 Temperature Pulse Rate 67 Respiratory Rate 13 Blood Pressure 92/55 L 114/72 Pulse Oximetry 97 Oxygen Delivery Method Oxygen Flow Rate 12/17/22 19:50 12/17/22 19:50 12/17/22 19:55 Temperature Pulse Rate 65 66 Respiratory Rate 17 17 Blood Pressure 147/75 H Pulse Oximetry 96 96 Oxygen Delivery Method Oxygen Flow Rate 12/17/22 19:55 12/17/22 20:00 12/17/22 20:00 Temperature Pulse Rate 69 Respiratory Rate 15 Blood Pressure 140/78 108/65 Pulse Oximetry 96 Oxygen Delivery Method Oxygen Flow Rate 12/17/22 20:10 12/17/22 20:10 12/17/22 20:15 Temperature Pulse Rate 74 Respiratory Rate 24 Blood Pressure 109/56 L 109/61 Pulse Oximetry 97 Oxygen Delivery Method Oxygen Flow Rate 12/17/22 20:15 12/17/22 20:30 12/17/22 20:30 Temperature Pulse Rate 70 66 Respiratory Rate 11 L 10 L Blood Pressure 118/64 Pulse Oximetry 99 99 Oxygen Delivery Method Oxygen Flow Rate 12/17/22 20:45 12/17/22 20:45 12/17/22 21:00 Temperature Pulse Rate 67 Respiratory Rate 12 Blood Pressure 91/54 L 96/56 L Pulse Oximetry 96 Oxygen Delivery Method Oxygen Flow Rate 12/17/22 21:00 12/17/22 21:40 12/17/22 21:40 Temperature Pulse Rate 70 74 Respiratory Rate 18 Blood Pressure 102/61 Pulse Oximetry 96 100 Oxygen Delivery Method Room Air Oxygen Flow Rate 12/17/22 21:45 12/17/22 22:00 12/17/22 22:15 Temperature Pulse Rate 67 65 67 Respiratory Rate 14 16 16 Blood Pressure Pulse Oximetry 99 97 96 Oxygen Delivery Method Oxygen Flow Rate 12/17/22 22:30 12/17/22 22:45 12/17/22 23:00 Temperature Pulse Rate 67 65 65 Respiratory Rate 14 16 13 Blood Pressure Pulse Oximetry 97 98 98 Oxygen Delivery Method Oxygen Flow Rate 12/17/22 23:02 12/17/22 23:02 12/17/22 23:15 Temperature Pulse Rate 64 63 Respiratory Rate 12 16 Blood Pressure 102/63 Pulse Oximetry 100 91 85 L Oxygen Delivery Method Room Air Oxygen Flow Rate 12/17/22 23:20 Temperature Pulse Rate Respiratory Rate 14 Blood Pressure Pulse Oximetry 98 Oxygen Delivery Method Nasal Cannula Oxygen Flow Rate 1.5 <Kulwinder Reich, - Last Filed: 12/18/22 00:09> Orders Ordered: Acetaminophen (Acetaminophen 325 Mg Tablet) 650 mg PO Q6H PRN PRN Reason: Fever/Mild Pain (1-3) Hydrocodone Bitart/Acetaminophen (Hydrocodone/Acet 5/325 Tablet) 1 tab PO Q4H PRN PRN Reason: Pain, Moderate (4-6) Last Admin: 12/18/22 04:22 Dose: 1 tab Documented By: JUAN C Apixaban (Apixaban 5 Mg Tablet) 5 mg PO BID [facility] Last Admin: 12/18/22 08:14 Dose: 5 mg Documented By: Admin: 12/18/22 02:44 Dose: 5 mg Documented By: JUAN C Atorvastatin Calcium (Atorvastatin 20 Mg Tablet) 40 mg PO DAILY [facility] Last Admin: 12/18/22 08:14 Dose: 40 mg Documented By: MOHSEN Baclofen (Baclofen 10 Mg Tablet) 10 mg PO TID PRN PRN Reason: Hiccups Last Admin: 12/18/22 02:43 Dose: 10 mg Documented By: JUAN C Dextrose (Dextrose 50 % In Water 25 Gm/50 Ml Syringe) 25 gm IV PRN PRN PRN Reason: Hypoglycemia Gabapentin (Gabapentin 300 Mg Capsule) 300 mg PO TID [facility] Last Admin: 12/18/22 08:14 Dose: 300 mg Documented By: MOHSEN NOREPINEPHRINE BITARTRATE/D5W (Levophed) 4 mg in 250 mls @ 32.403 mls/hr IV TITRATE [facility]; Protocol Last Titration: 12/17/22 20:31 Dose: 0 mcg/kg/min, 0 mls/hr Documented By: Titration: 12/17/22 19:57 Dose: 0.02 mcg/kg/min, 7.5 mls/hr Documented By: Admin: 12/17/22 19:39 Dose: 0.05 mcg/kg/min, 15 mls/hr Documented By: SIMEON Sodium Chloride (Normal Saline 0.9%) 1,000 mls @ 100 mls/hr IV CONT [facility]ETRA Stop: 12/18/22 12:00 Last Admin: 12/18/22 01:52 Dose: 100 mls/hr Documented By: JUAN C Cefepime HCl 2 gm/ Sodium (Chloride) 100 mls @ 200 mls/hr IV Q8H [facility] Last Infusion: 12/18/22 02:34 Dose: 0 mls/hr Documented By: JUAN C Admin: 12/18/22 01:52 Dose: 200 mls/hr Documented By: JUAN C Insulin Glargine (Insulin Glargine 100 Unit/Ml 3ml Pen) 15 unit SUBCUT BID [facility] Last Admin: 12/18/22 08:14 Dose: 15 unit Documented By: MOHSEN Co-signed By: BALTAZAR Insulin Human Lispro (Insulin Lispro 100 Unit/Ml 3ml Vial) 0 unit SUBCUT ACHS [facility]; Protocol Last Admin: 12/18/22 08:03 Dose: Not Given Documented By: MOHSEN Lorazepam (Lorazepam 0.5 Mg Tablet) 0.5 mg PO BEDTIME PRN PRN Reason: insomina Naloxone HCl (Naloxone 0.4 Mg/Ml Vial) 0.2 mg IV Q2MIN PRN PRN Reason: Opiate Reversal Non-Formulary Medication (Bezoqs-Eexotnjb-Vqfehfx) 1 cap PO DAILY [facility] Last Admin: 12/18/22 08:51 Dose: Not Given Documented By: MOHSEN Ondansetron HCl (Ondansetron 4 Mg Odt) 4 mg SL NOW PRN PRN Reason: Nausea And Vomiting Discontinued Medications Acetaminophen (Acetaminophen 325 Mg Tablet) 975 mg PO NOW ONE Stop: 12/17/22 17:02 Last Admin: 12/17/22 17:07 Dose: 975 mg Documented By: HAYDEN Sodium Chloride (Normal Saline 0.9%) 1,000 mls @ 1,000 mls/hr IV BOLUS ONE Stop: 12/17/22 16:15 Last Infusion: 12/17/22 17:05 Dose: 0 mls/hr Documented By: Admin: 12/17/22 15:56 Dose: 1,000 mls/hr Documented By: TERRY Cefepime HCl 2 gm/ Sodium (Chloride) 100 mls @ 200 mls/hr IV NOW ONE Stop: 12/17/22 17:02 Last Infusion: 12/17/22 18:10 Dose: 0 mls/hr Documented By: Admin: 12/17/22 17:08 Dose: 200 mls/hr Documented By: HAYDEN Sodium Chloride (Normal Saline 0.9%) 2,422.17 mls @ 807.39 mls/hr 30 ml/kg infuse over 3 hr (2422.17 ml) IV NOW ONE Stop: 12/17/22 20:02 Last Infusion: 12/17/22 19:57 Dose: 0 mls/hr Documented By: Admin: 12/17/22 17:07 Dose: 807.39 mls/hr Documented By: HAYDEN Metronidazole (Flagyl) 500 mg in 100 mls @ 100 mls/hr IV NOW ONE Stop: 12/17/22 19:04 Last Infusion: 12/17/22 19:22 Dose: 0 mls/hr Documented By: Admin: 12/17/22 18:20 Dose: 100 mls/hr Documented By: TERRY Ondansetron HCl (Ondansetron 4 Mg/2 Ml Inj) 4 mg IV NOW PRN PRN Reason: Nausea And Vomiting Last Admin: 12/17/22 17:14 Dose: 4 mg Documented By: TERRY Potassium Chloride (Potassium Chloride 20 Meq/15 Ml Udc) 40 meq PO NOW ONE Stop: 12/17/22 17:04 Last Admin: 12/17/22 17:12 Dose: 40 meq Documented By: TERRY Vital Signs Vital signs: Vital Signs - 8 hr 12/17/22 16:15 12/17/22 17:07 12/17/22 18:32 Temperature 101.7 F H 98 F Pulse Rate 88 Respiratory Rate 23 Blood Pressure Pulse Oximetry 97 Oxygen Delivery Method Oxygen Flow Rate 12/17/22 16:30 12/17/22 16:30 12/17/22 16:45 Temperature Pulse Rate 88 87 Respiratory Rate 27 H 28 H Blood Pressure 99/55 L Pulse Oximetry 97 97 Oxygen Delivery Method Oxygen Flow Rate 12/17/22 17:00 12/17/22 17:00 12/17/22 17:15 Temperature Pulse Rate 89 86 Respiratory Rate 32 H 26 H Blood Pressure 106/63 Pulse Oximetry 97 97 Oxygen Delivery Method Oxygen Flow Rate 12/17/22 17:30 12/17/22 17:43 12/17/22 17:43 Temperature Pulse Rate 85 84 Respiratory Rate 30 H 27 H Blood Pressure 97/58 L Pulse Oximetry 98 98 Oxygen Delivery Method Oxygen Flow Rate 12/17/22 17:45 12/17/22 18:00 12/17/22 18:07 Temperature Pulse Rate 84 85 90 Respiratory Rate 25 H 10 L 33 H Blood Pressure Pulse Oximetry 97 96 96 Oxygen Delivery Method Oxygen Flow Rate 12/17/22 18:07 12/17/22 18:15 12/17/22 18:16 Temperature Pulse Rate 92 H 100 H Respiratory Rate 18 30 H Blood Pressure 95/55 L Pulse Oximetry 97 96 Oxygen Delivery Method Oxygen Flow Rate 12/17/22 18:16 12/17/22 18:30 12/17/22 18:30 Temperature Pulse Rate 79 Respiratory Rate 17 Blood Pressure 92/55 L 95/52 L Pulse Oximetry 97 Oxygen Delivery Method Oxygen Flow Rate 12/17/22 18:58 12/17/22 18:59 12/17/22 18:59 Temperature Pulse Rate 80 79 Respiratory Rate 14 Blood Pressure 95/56 L Pulse Oximetry 97 Oxygen Delivery Method Oxygen Flow Rate 12/17/22 19:00 12/17/22 19:00 12/17/22 19:14 Temperature Pulse Rate 79 Respiratory Rate 14 Blood Pressure 92/56 L 90/57 L Pulse Oximetry 97 Oxygen Delivery Method Oxygen Flow Rate 12/17/22 19:14 12/17/22 19:15 12/17/22 19:15 Temperature Pulse Rate 86 87 Respiratory Rate 25 H 28 H Blood Pressure 87/51 L Pulse Oximetry 97 97 Oxygen Delivery Method Oxygen Flow Rate 12/17/22 19:21 12/17/22 19:21 12/17/22 19:25 Temperature Pulse Rate 73 71 Respiratory Rate 19 15 Blood Pressure 84/50 L Pulse Oximetry 96 96 Oxygen Delivery Method Oxygen Flow Rate 12/17/22 19:25 12/17/22 19:30 12/17/22 19:30 Temperature Pulse Rate 72 Respiratory Rate 14 Blood Pressure 82/49 L 82/50 L Pulse Oximetry 97 Oxygen Delivery Method Oxygen Flow Rate 12/17/22 19:35 12/17/22 19:35 12/17/22 19:40 Temperature Pulse Rate 72 70 Respiratory Rate 19 14 Blood Pressure 90/57 L Pulse Oximetry 97 96 Oxygen Delivery Method Oxygen Flow Rate 12/17/22 19:40 12/17/22 19:45 12/17/22 19:45 Temperature Pulse Rate 67 Respiratory Rate 13 Blood Pressure 92/55 L 114/72 Pulse Oximetry 97 Oxygen Delivery Method Oxygen Flow Rate 12/17/22 19:50 12/17/22 19:50 12/17/22 19:55 Temperature Pulse Rate 65 66 Respiratory Rate 17 17 Blood Pressure 147/75 H Pulse Oximetry 96 96 Oxygen Delivery Method Oxygen Flow Rate 12/17/22 19:55 12/17/22 20:00 12/17/22 20:00 Temperature Pulse Rate 69 Respiratory Rate 15 Blood Pressure 140/78 108/65 Pulse Oximetry 96 Oxygen Delivery Method Oxygen Flow Rate 12/17/22 20:10 12/17/22 20:10 12/17/22 20:15 Temperature Pulse Rate 74 Respiratory Rate 24 Blood Pressure 109/56 L 109/61 Pulse Oximetry 97 Oxygen Delivery Method Oxygen Flow Rate 12/17/22 20:15 12/17/22 20:30 12/17/22 20:30 Temperature Pulse Rate 70 66 Respiratory Rate 11 L 10 L Blood Pressure 118/64 Pulse Oximetry 99 99 Oxygen Delivery Method Oxygen Flow Rate 12/17/22 20:45 12/17/22 20:45 12/17/22 21:00 Temperature Pulse Rate 67 Respiratory Rate 12 Blood Pressure 91/54 L 96/56 L Pulse Oximetry 96 Oxygen Delivery Method Oxygen Flow Rate 12/17/22 21:00 12/17/22 21:40 12/17/22 21:40 Temperature Pulse Rate 70 74 Respiratory Rate 18 Blood Pressure 102/61 Pulse Oximetry 96 100 Oxygen Delivery Method Room Air Oxygen Flow Rate 12/17/22 21:45 12/17/22 22:00 12/17/22 22:15 Temperature Pulse Rate 67 65 67 Respiratory Rate 14 16 16 Blood Pressure Pulse Oximetry 99 97 96 Oxygen Delivery Method Oxygen Flow Rate 12/17/22 22:30 12/17/22 22:45 12/17/22 23:00 Temperature Pulse Rate 67 65 65 Respiratory Rate 14 16 13 Blood Pressure Pulse Oximetry 97 98 98 Oxygen Delivery Method Oxygen Flow Rate 12/17/22 23:02 12/17/22 23:02 12/17/22 23:15 Temperature Pulse Rate 64 63 Respiratory Rate 12 16 Blood Pressure 102/63 Pulse Oximetry 100 91 85 L Oxygen Delivery Method Room Air Oxygen Flow Rate 12/17/22 23:20 Temperature Pulse Rate Respiratory Rate 14 Blood Pressure Pulse Oximetry 98 Oxygen Delivery Method Nasal Cannula Oxygen Flow Rate 1.5 Sepsis Evaluation (ED) <Kate Shannon, DO - Last Filed: 12/18/22 09:02> Triage Screening Sepsis Screen: Meets SIRS Criteria Level 1 - Infection Sepsis Infection Criteria Present: None Response Fluid calculation based on 30 mL/kg within 1hr of criteria: ABW used Antibiotics initiated within 1 hr of Sepis dx: Yes Tissue Perfusion Reassessed within 6 hrs of infusion start time: Yes Date of Tissue Perfusion Reassessment completed: 12/17/22 Time Tissue Perfusion Reassessment completed: 16:01 <Kulwinder Reich DO - Last Filed: 12/18/22 00:09> Response It is my opinion that his patient have a likely infectious etiology for meeting sepsis criteria: Does MDM - Sepsis <Kate Shannon, DO - Last Filed: 12/18/22 09:02> Lab Data 12/18/22 01:30 12/18/22 01:30 Labs: Lab Results 12/17/22 12/17/22 12/17/22 Range/Units 14:50 15:00 15:00 WBC 1.4 L* (4.5-11.0) X10^3/uL RBC 3.29 L (4.5-5.9) X10^6/uL Hgb 9.0 L (13.5-17.5) g/dL Hct 27.5 L (41-53) % MCV 83.4 (80-100) fL MCH 27.4 (26-34) PG MCHC 32.8 (30-36) % RDW 17.0 H (11.6-14.8) % Plt Count 49 L (150-400) X10^3/uL Neut % (Auto) Not Reportable Lymph % (Auto) Not Reportable Lawrence % (Auto) Not Reportable Eos % (Auto) Not Reportable Baso % (Auto) Not Reportable Lymph # (Auto) Not Reportable Lawrence # (Auto) Not Reportable Baso # (Auto) Not Reportable Total Counted 100 Seg Neutrophils % 49.0 (38-70) % Band Neutrophils % 17.0 H (3-7) % Lymphocytes % (Manual) 17.0 L (25-45) % Monocytes % (Manual) 14.0 H (2-11) % Metamyelocytes % 2.0 H (-0) % Myelocytes % 1.0 H (-0) % Neutrophils # (Manual) 924 L (2168-1976) /uL Platelet Estimate Decreased on smear RBC Morphology See below Anisocytosis 1+ H PT (10.1-12.7) SECONDS INR (0.9-1.3) APTT (26-36) SECONDS Sodium 134 L (137-145) mmol/L Potassium 3.2 L (3.4-5.1) mmol/L Chloride 94 L (98-107) mmol/L Carbon Dioxide 33 H (22-32) mmol/L BUN 8 L (9-20) mg/dL Creatinine 0.54 L (0.66-1.25) mg/dL Estimated GFR > 60 (>60) mL/min BUN/Creatinine Ratio 14.8 (6-22) Glucose 96 (70-100) mg/dL Lactate (0.7-2.1) mmol/L Calcium 8.1 L (8.4-10.2) mg/dL Total Bilirubin 1.2 (0.2-1.3) mg/dL AST 49 (17-59) IU/L ALT 28 (<50) IU/L Alkaline Phosphatase 373 H (38-126) U/L Total Creatine Kinase (55-170) U/L Troponin I (0.01-0.034) ng/mL NT-Pro-B Natriuret Pep (<125) pg/mL Total Protein 6.8 (6.3-8.2) g/dL Albumin 3.0 L (3.5-5.0) g/dL Globulin 3.8 (1.7-4.1) g/dL Albumin/Globulin Ratio 0.8 L (1.0-2.8) Lipase < 10 L (23-300) U/L Procalcitonin 0.33 (<0.5) ng/mL Urine RBC (0-5/HPF) Urine WBC (0-5/HPF) Ur Squamous Epith Cells (0-5/HPF) Urine Bacteria (None) Urine Mucus (Negative) Ur Culture Indicated? SARS-CoV-2 (PCR) Negative (Negative) Influenza A (RT-PCR) Flu a negative (NEGATIVE) Influenza B (RT-PCR) Flu b negative (NEGATIVE) RSV (PCR) Negative (Negative) 12/17/22 12/17/22 12/17/22 Range/Units 15:00 15:40 16:01 WBC (4.5-11.0) X10^3/uL RBC (4.5-5.9) X10^6/uL Hgb (13.5-17.5) g/dL Hct (41-53) % MCV (80-100) fL MCH (26-34) PG MCHC (30-36) % RDW (11.6-14.8) % Plt Count (150-400) X10^3/uL Neut % (Auto) Lymph % (Auto) Lawrence % (Auto) Eos % (Auto) Baso % (Auto) Lymph # (Auto) Lawrence # (Auto) Baso # (Auto) Total Counted Seg Neutrophils % (38-70) % Band Neutrophils % (3-7) % Lymphocytes % (Manual) (25-45) % Monocytes % (Manual) (2-11) % Metamyelocytes % (-0) % Myelocytes % (-0) % Neutrophils # (Manual) (2696-6693) /uL Platelet Estimate RBC Morphology Anisocytosis PT 16.8 H (10.1-12.7) SECONDS INR 1.5 H (0.9-1.3) APTT 25 L (26-36) SECONDS Sodium (137-145) mmol/L Potassium (3.4-5.1) mmol/L Chloride (98-107) mmol/L Carbon Dioxide (22-32) mmol/L BUN (9-20) mg/dL Creatinine (0.66-1.25) mg/dL Estimated GFR (>60) mL/min BUN/Creatinine Ratio (6-22) Glucose (70-100) mg/dL Lactate 2.8 H 1.4 (0.7-2.1) mmol/L Calcium (8.4-10.2) mg/dL Total Bilirubin (0.2-1.3) mg/dL AST (17-59) IU/L ALT (<50) IU/L Alkaline Phosphatase (38-126) U/L Total Creatine Kinase (55-170) U/L Troponin I (0.01-0.034) ng/mL NT-Pro-B Natriuret Pep (<125) pg/mL Total Protein (6.3-8.2) g/dL Albumin (3.5-5.0) g/dL Globulin (1.7-4.1) g/dL Albumin/Globulin Ratio (1.0-2.8) Lipase (23-300) U/L Procalcitonin (<0.5) ng/mL Urine RBC (0-5/HPF) Urine WBC (0-5/HPF) Ur Squamous Epith Cells (0-5/HPF) Urine Bacteria (None) Urine Mucus (Negative) Ur Culture Indicated? SARS-CoV-2 (PCR) (Negative) Influenza A (RT-PCR) (NEGATIVE) Influenza B (RT-PCR) (NEGATIVE) RSV (PCR) (Negative) 12/17/22 12/17/22 Range/Units 19:01 20:30 WBC (4.5-11.0) X10^3/uL RBC (4.5-5.9) X10^6/uL Hgb (13.5-17.5) g/dL Hct (41-53) % MCV (80-100) fL MCH (26-34) PG MCHC (30-36) % RDW (11.6-14.8) % Plt Count (150-400) X10^3/uL Neut % (Auto) Lymph % (Auto) Lawrence % (Auto) Eos % (Auto) Baso % (Auto) Lymph # (Auto) Lawrence # (Auto) Baso # (Auto) Total Counted Seg Neutrophils % (38-70) % Band Neutrophils % (3-7) % Lymphocytes % (Manual) (25-45) % Monocytes % (Manual) (2-11) % Metamyelocytes % (-0) % Myelocytes % (-0) % Neutrophils # (Manual) (2241-9274) /uL Platelet Estimate RBC Morphology Anisocytosis PT (10.1-12.7) SECONDS INR (0.9-1.3) APTT (26-36) SECONDS Sodium (137-145) mmol/L Potassium (3.4-5.1) mmol/L Chloride (98-107) mmol/L Carbon Dioxide (22-32) mmol/L BUN (9-20) mg/dL Creatinine (0.66-1.25) mg/dL Estimated GFR (>60) mL/min BUN/Creatinine Ratio (6-22) Glucose (70-100) mg/dL Lactate (0.7-2.1) mmol/L Calcium (8.4-10.2) mg/dL Total Bilirubin (0.2-1.3) mg/dL AST (17-59) IU/L ALT (<50) IU/L Alkaline Phosphatase (38-126) U/L Total Creatine Kinase 22 L (55-170) U/L Troponin I < 0.012 (0.01-0.034) ng/mL NT-Pro-B Natriuret Pep 369 H (<125) pg/mL Total Protein (6.3-8.2) g/dL Albumin (3.5-5.0) g/dL Globulin (1.7-4.1) g/dL Albumin/Globulin Ratio (1.0-2.8) Lipase (23-300) U/L Procalcitonin (<0.5) ng/mL Urine RBC 0-1/hpf (0-5/HPF) Urine WBC 1-5/hpf (0-5/HPF) Ur Squamous Epith Cells None seen (0-5/HPF) Urine Bacteria Few (2-10) H (None) Urine Mucus 4+ H (Negative) Ur Culture Indicated? Cult not indicated SARS-CoV-2 (PCR) (Negative) Influenza A (RT-PCR) (NEGATIVE) Influenza B (RT-PCR) (NEGATIVE) RSV (PCR) (Negative) Urine Dip Bedside Urine Glucose 100 mg/dl Bedside Urine Bilirubin + 1 Bedside Urine Ketone - Negative Urine Specific [place] 1.015 Bedside Urine Occult Blood - Negative Bedside Urine pH 6.0 Bedside Urine Protein +/- 15 Bedside Urine Urobilinogen - Negative Bedside Urine Nitrite - Negative Bedside Urine Leukocytes +/- 15 Esterase Imaging Data Chest x-ray: Radiologist's Impression: [address] [address] XRay Report Signed Patient: Bhupendra Zamudio MR#: [id number] : 1965 Acct:[id number] Age/Sex: 57 / M Date of Service: 12/17/22 Loc: ED Accession Number: [id number] ?? Procedure: XR chest 1V Ordering Provider: Kate Shannon D.O. PROCEDURE:? XR CHEST 1V ? INDICATIONS:? suspected sepsis ? TECHNIQUE:? One view of the chest was acquired.? ? COMPARISON:? [facility], CR, XR CHEST 2V, 06/17/2022, 10:06.? [facility], CR, XR CHEST 1V, 03/19/2019, 14:57. ? FINDINGS:? ? Surgical changes and devices:? Port-A-Cath from right-sided approach extends with tip in the distal SVC ? Lungs and pleura:? Lungs are difficult to accurately assess due to reduced inspiratory volume, left greater than right.? No definite pneumonia when this is taken into account.. ?No pleural effusions or pneumothorax.? ? Mediastinum:? Mediastinal contours appear normal.? Heart size is normal.? ? Bones and chest wall:? No suspicious bony lesions.? Overlying soft tissues appear unremarkable.? ? IMPRESSION:? Port-A-Cath positioning normal, prominent reduced inspiratory volume, left greater than right. ? ? Dictated by: Barron Perales M.D. on 12/17/2022 at 16:12 ? ? Approved by: Barron Perales M.D. on 12/17/2022 at 16:13?? CT chest/abd/pelvis: Radiologist's Impression: [address] [address] [address] Scan Report Signed Patient: Bhupendra Zamudio MR#: [id number] : 1965 Acct:[id number] Age/Sex: 57 / M Date of Service: 12/17/22 Loc: ED Accession Number: [id number] ?? Procedure: CT chest abd pel w con Ordering Provider: Kate Shannon D.O. PROCEDURE:? CT CHEST ABD PEL W CON ? INDICATIONS:? sepsis, biliary drain 6 weeks ago. chemo pancreatic ca ? TECHNIQUE:? After the administration of intravenous contrast, 5 mm thick sections acquired from the lung apices to the symphysis.? 5 mm coronal and sagittal reformats were performed, with additional 7 mm MIP reformats through the lungs.? For radiation dose reduction, the following was used:? automated exposure control, adjustment of mA and/or kV according to patient size.? ? COMPARISON:? [facility], CT, CT CHEST ABD PEL W CON, 11/23/2022, 11:04. ? FINDINGS:? Image quality:? Excellent.? ? CHEST:? Lungs and pleura:? Mild reticulonodular pulmonary opacity.? Right upper lobe pulmonary nodule measuring 6 mm diameter.? Multiple smaller bilateral pulmonary nodules are present.? Airspace opacity within the right lung base and left upper lobe posteriorly..? No pleural effusions or pneumothorax.? Central and peripheral airways appear patent and normal in caliber.? ? Mediastinum:? Heart size is normal.? Calcification of the coronary vasculature is present.? No pericardial effusion.? No mediastinal or hilar adenopathy by size criteria.? Thoracic aorta and central pulmonary arteries are normal in size.? Esophagus is normal in caliber.? No hiatal hernia.? ? Chest wall:? No axillary or supraclavicular adenopathy by size criteria.? Thyroid gland is within normal limits .? ? ? ABDOMEN:? Solid organs:? Increased right hepatic lobe mass measuring roughly 11 cm, which encases and possibly invades a metallic biliary stent.? Gallbladder is not seen .? No change in mild biliary ductal dilatation.? Increased, moderate pneumobilia.? Pancreas enhances normally.? Spleen is enlarged.? No adrenal nodules.? Kidneys demonstrate normal size and enhancement, without hydronephrosis.? ? Peritoneum and bowel:? Bowel loops demonstrate normal wall thickness and caliber.? No pneumoperitoneum.? Small amount of ascites.? No change in peritoneal nodularity and ascites, consistent with peritoneal carcinomatosis. ? Nodes and vessels:? No retroperitoneal or mesenteric adenopathy by size criteria.? Aorta and inferior vena cava are normal in size.? ? Miscellaneous:? No ventral hernias.? ? ? PELVIS:? Genitourinary:? Bladder wall thickness is normal.? ? Miscellaneous:? No inguinal hernias or adenopathy.? ? Bones:? No suspicious bony lesions.? No vertebral body compression fractures.? ? IMPRESSION:? 1. Increased right hepatic lobe mass which appears to encase the biliary stent. 2. Bilateral pneumonia. 3. Mild degree of pulmonary metastatic disease. 4. Coronary artery disease. 5. Increased pneumobilia, possibly secondary to cholangitis. 6. No change in peritoneal nodularity and fluid, suggestive of peritoneal carcinomatosis. ? 7. Splenomegaly.? ? Dictated by: Gagan Carmichael M.D. on 12/17/2022 at 19:15 ? ? Approved by: Gagan Carmichael M.D. on 12/17/2022 at 19:19?? ECG Data Attestation: I personally reviewed and interpreted this ECG as follows: Prior ECG tracings: available for review Interpretation: Sinus rhythm rate of 93 CT 144 QRS of 92 QTC [address] No acute [address] elevation. Nonspecific change. Patient has prior from 02/16 which appears similar nonspecific changes. MDM Narrative Medical decision making narrative: 57-year-old male currently on chemotherapy for adenocarcinoma of the pancreas who is had prior Whipple, patient had common bile duct stent placed or attempted and states he then had a drain placed afterwards. Was removed about 6 weeks ago. Patient has had fever that started in the last 24 hours no other clear source of infection, he is at risk for neutropenic fever. White count is 1.4, he is 17% bands. Patient has a hemoglobin of 9 was 11 on November 18 with platelets of 49 and was 106 at that time. Coags show an INR 1.5. Patient has creatinine at baseline at 0.54, potassium slightly low at 3.2 and replaced orally. Sodium 134, chloride 94 with a CO2 of 33 and a BUN of 8. Initial lactate was 2.8 improved to 1.4 here, total bili is 1.2 with AST ALT normal alk- phos of 373. Patient's procalcitonin is 0.33. He did have a for [facility] respiratory panel for COVID/influenza and RSV which was negative. Urine showed leukocyte esterase Chest x-ray did not show any clear source of infection. Because patient had rec ent instrumentation last [address] chest abdomen pelvis was obtained. Patient was covered with broad-spectrum antibiotics with cefepime for possible neutropenic fever as well as Flagyl for possible intra-abdominal process. Cultures were obtained patient received 30 cc/kilos bolus. He has made main map around 70 but has been 100-90 systolic. Appears typically be 130s. He is not been hypoxic tachycardia significantly improves after fever was treated. Patient received tylenol for fever. CT chest abdomen pelvis does show bilateral pneumonia patient stent appears surrounded by mass but no blockage. Patient has some pneumobilia, possibly secondary to cholangitis but patient no as no abdominal pain, no elevation LFTs other than alk-phos wishes suspect with his cancer. No changes in peritoneal nodularity or fluid. Suspect pneumonia is his main source of infection. Patient does have coverage for this as well. Patient's blood pressure has been slowly trending down words despite 30 cc/kilos bolus we will continue with fluids but did start a small dose of norepinephrine. Patient himself does not feel symptomatic at this time. Patient was sent back for CT angio of the chest day hospitalist noted maybe developing additional blood clots while on apixaban for pulmonary emboli. This is currently pending. Patient signed out to Dr. Walker for final disposition whether admission locally or transfer. Dr Reich: Received turned over. Review patient's history and physical exam. Patient's CTA of the chest shows no pulmonary emboli. Plan will be to admit to the hospital for pneumonia and neutropenia. Dr. Jhaveri will admit for further evaluation and treatment. <Kulwinder Reich, DO - Last Filed: 08/12/23 00:09> Lab Data Labs: Lab Results 12/17/22 12/17/22 12/17/22 Range/Units 14:50 15:00 15:00 WBC 1.4 L* (4.5-11.0) X10^3/uL RBC 3.29 L (4.5-5.9) X10^6/uL Hgb 9.0 L (13.5-17.5) g/dL Hct 27.5 L (41-53) % MCV 83.4 (80-100) fL MCH 27.4 (26-34) PG MCHC 32.8 (30-36) % RDW 17.0 H (11.6-14.8) % Plt Count 49 L (150-400) X10^3/uL Neut % (Auto) Not Reportable Lymph % (Auto) Not Reportable Lawrence % (Auto) Not Reportable Eos % (Auto) Not Reportable Baso % (Auto) Not Reportable Lymph # (Auto) Not Reportable Lawrence # (Auto) Not Reportable Baso # (Auto) Not Reportable Total Counted 100 Seg Neutrophils % 49.0 (38-70) % Band Neutrophils % 17.0 H (3-7) % Lymphocytes % (Manual) 17.0 L (25-45) % Monocytes % (Manual) 14.0 H (2-11) % Metamyelocytes % 2.0 H (-0) % Myelocytes % 1.0 H (-0) % Neutrophils # (Manual) 924 L (2996-6533) /uL Platelet Estimate Decreased on smear RBC Morphology See below Anisocytosis 1+ H PT (10.1-12.7) SECONDS INR (0.9-1.3) APTT (26-36) SECONDS Sodium 134 L (137-145) mmol/L Potassium 3.2 L (3.4-5.1) mmol/L Chloride 94 L (98-107) mmol/L Carbon Dioxide 33 H (22-32) mmol/L BUN 8 L (9-20) mg/dL Creatinine 0.54 L (0.66-1.25) mg/dL Estimated GFR > 60 (>60) mL/min BUN/Creatinine Ratio 14.8 (6-22) Glucose 96 (70-100) mg/dL Lactate (0.7-2.1) mmol/L Calcium 8.1 L (8.4-10.2) mg/dL Total Bilirubin 1.2 (0.2-1.3) mg/dL AST 49 (17-59) IU/L ALT 28 (<50) IU/L Alkaline Phosphatase 373 H (38-126) U/L Total Creatine Kinase (55-170) U/L Troponin I (0.01-0.034) ng/mL NT-Pro-B Natriuret Pep (<125) pg/mL Total Protein 6.8 (6.3-8.2) g/dL Albumin 3.0 L (3.5-5.0) g/dL Globulin 3.8 (1.7-4.1) g/dL Albumin/Globulin Ratio 0.8 L (1.0-2.8) Lipase < 10 L (23-300) U/L Procalcitonin 0.33 (<0.5) ng/mL Urine RBC (0-5/HPF) Urine WBC (0-5/HPF) Ur Squamous Epith Cells (0-5/HPF) Urine Bacteria (None) Urine Mucus (Negative) Ur Culture Indicated? SARS-CoV-2 (PCR) Negative (Negative) Influenza A (RT-PCR) Flu a negative (NEGATIVE) Influenza B (RT-PCR) Flu b negative (NEGATIVE) RSV (PCR) Negative (Negative) 12/17/22 12/17/22 12/17/22 Range/Units 15:00 15:40 16:01 WBC (4.5-11.0) X10^3/uL RBC (4.5-5.9) X10^6/uL Hgb (13.5-17.5) g/dL Hct (41-53) % MCV (80-100) fL MCH (26-34) PG MCHC (30-36) % RDW (11.6-14.8) % Plt Count (150-400) X10^3/uL Neut % (Auto) Lymph % (Auto) Lawrence % (Auto) Eos % (Auto) Baso % (Auto) Lymph # (Auto) Lawrence # (Auto) Baso # (Auto) Total Counted Seg Neutrophils % (38-70) % Band Neutrophils % (3-7) % Lymphocytes % (Manual) (25-45) % Monocytes % (Manual) (2-11) % Metamyelocytes % (-0) % Myelocytes % (-0) % Neutrophils # (Manual) (1109-6755) /uL Platelet Estimate RBC Morphology Anisocytosis PT 16.8 H (10.1-12.7) SECONDS INR 1.5 H (0.9-1.3) APTT 25 L (26-36) SECONDS Sodium (137-145) mmol/L Potassium (3.4-5.1) mmol/L Chloride (98-107) mmol/L Carbon Dioxide (22-32) mmol/L BUN (9-20) mg/dL Creatinine (0.66-1.25) mg/dL Estimated GFR (>60) mL/min BUN/Creatinine Ratio (6-22) Glucose (70-100) mg/dL Lactate 2.8 H 1.4 (0.7-2.1) mmol/L Calcium (8.4-10.2) mg/dL Total Bilirubin (0.2-1.3) mg/dL AST (17-59) IU/L ALT (<50) IU/L Alkaline Phosphatase (38-126) U/L Total Creatine Kinase (55-170) U/L Troponin I (0.01-0.034) ng/mL NT-Pro-B Natriuret Pep (<125) pg/mL Total Protein (6.3-8.2) g/dL Albumin (3.5-5.0) g/dL Globulin (1.7-4.1) g/dL Albumin/Globulin Ratio (1.0-2.8) Lipase (23-300) U/L Procalcitonin (<0.5) ng/mL Urine RBC (0-5/HPF) Urine WBC (0-5/HPF) Ur Squamous Epith Cells (0-5/HPF) Urine Bacteria (None) Urine Mucus (Negative) Ur Culture Indicated? SARS-CoV-2 (PCR) (Negative) Influenza A (RT-PCR) (NEGATIVE) Influenza B (RT-PCR) (NEGATIVE) RSV (PCR) (Negative) 12/17/22 12/17/22 Range/Units 19:01 20:30 WBC (4.5-11.0) X10^3/uL RBC (4.5-5.9) X10^6/uL Hgb (13.5-17.5) g/dL Hct (41-53) % MCV (80-100) fL MCH (26-34) PG MCHC (30-36) % RDW (11.6-14.8) % Plt Count (150-400) X10^3/uL Neut % (Auto) Lymph % (Auto) Lawrence % (Auto) Eos % (Auto) Baso % (Auto) Lymph # (Auto) [place] # (Auto) Baso # (Auto) Total Counted Seg Neutrophils % (38-70) % Band Neutrophils % (3-7) % Lymphocytes % (Manual) (25-45) % Monocytes % (Manual) (2-11) % Metamyelocytes % (-0) % Myelocytes % (-0) % Neutrophils # (Manual) (3475-7138) /uL Platelet Estimate RBC Morphology Anisocytosis PT (10.1-12.7) SECONDS INR (0.9-1.3) APTT (26-36) SECONDS Sodium (137-145) mmol/L Potassium (3.4-5.1) mmol/L Chloride (98-107) mmol/L Carbon Dioxide (22-32) mmol/L BUN (9-20) mg/dL Creatinine (0.66-1.25) mg/dL Estimated GFR (>60) mL/min BUN/Creatinine Ratio (6-22) Glucose (70-100) mg/dL Lactate (0.7-2.1) mmol/L Calcium (8.4-10.2) mg/dL Total Bilirubin (0.2-1.3) mg/dL AST (17-59) IU/L ALT (<50) IU/L Alkaline Phosphatase (38-126) U/L Total Creatine Kinase 22 L (55-170) U/L Troponin I < 0.012 (0.01-0.034) ng/mL NT-Pro-B Natriuret Pep 369 H (<125) pg/mL Total Protein (6.3-8.2) g/dL Albumin (3.5-5.0) g/dL Globulin (1.7-4.1) g/dL Albumin/Globulin Ratio (1.0-2.8) Lipase (23-300) U/L Procalcitonin (<0.5) ng/mL Urine RBC 0-1/hpf (0-5/HPF) Urine WBC 1-5/hpf (0-5/HPF) Ur Squamous Epith Cells None seen (0-5/HPF) Urine Bacteria Few (2-10) H (None) Urine Mucus 4+ H (Negative) Ur Culture Indicated? Cult not indicated SARS-CoV-2 (PCR) (Negative) Influenza A (RT-PCR) (NEGATIVE) Influenza B (RT-PCR) (NEGATIVE) RSV (PCR) (Negative) Urine Dip Bedside Urine Glucose 100 mg/dl Bedside Urine Bilirubin + 1 Bedside Urine Ketone - Negative Urine Specific [place] 1.015 Bedside Urine Occult Blood - Negative Bedside Urine pH 6.0 Bedside Urine Protein +/- 15 Bedside Urine Urobilinogen - Negative Bedside Urine Nitrite - Negative Bedside Urine Leukocytes +/- [address] scan - chest: Radiologist's Impression: PROCEDURE:? CT ANGIO CHEST PE PROTOCOL ? INDICATIONS:? recent PEs ? TECHNIQUE:? After the administration of intravenous contrast, 2 mm thick sections acquired from the pulmonary apices to the posterior costophrenic angles.? 3-dimensional maximum intensity projection (MIP) coronal and sagittal reformats were then acquired through the thorax.? For radiation dose reduction, the following was used:? automated exposure contr ol, adjustment of mA and/or kV according to patient size.? ? COMPARISON:? CT, CT CHEST ABD PEL W CON, 05/26/2022, 13:45.? [facility], CT, CT CHEST ABD PEL W CON, 11/23/2022, 11:04.? [facility], CT, CT CHEST ABD PEL W CON, 12/17/2022, 18:55. ? FINDINGS:? Image quality:? None. ? Pulmonary arteries:? Pulmonary arteries demonstrate no intraluminal filling defects to suggest central pulmonary embolism.? There is enlargement of the pulmonary arteries, with the main pulmonary artery measuring up to 3.4 cm. ? Lower Neck: No lymphadenopathy by size criteria. Thyroid:? Visualized thyroid demonstrates no discrete nodules. Axillae: No lymphadenopathy by size criteria. Chest Wall:? There is a right chest wall subclavian Port-A-Cath with the tip extending into the superior vena cava. Bones: Visualized osseous structures demonstrate no suspicious lesions. ? Lungs and Airways:? There is peribronchial consolidation medially within the right lower lobe as well as within the inferior left lingula and superior segment of the left lower lobe are redemonstrated.? Bilateral scattered pulmonary nodules appear progressively increased in size.? A indirect sales representative left lower lobe nodule measuring 0.6 cm on series 5, image 168 is increased in size from 0.4 cm on the 11/23/2022 study.? In the right upper lobe, a 0.6 cm nodule on series 5, image 120 is increased from 0.4 cm on the 11/23/2022 study.? Pleura: No pneumothorax or pleural effusions.? ? Heart: Heart size is mildly enlarged.? No pericardial effusion. Thoracic Vessels: The thoracic aorta is normal in size.? Mediastinum and Amelie: No lymphadenopathy by size criteria. Esophagus: No wall thickening. No hiatal hernia. ? Abdomen:? Visualized upper abdomen redemonstrates a partially visualized biliary stent in the right hepatic lobe.? Multiple hypoattenuating mass lesions are also demonstrated within the visualized right hepatic lobe.? There is pneumobilia again noted.? The spleen is enlarged, measuring up to 18.3 cm. ? IMPRESSION:? ? 1. No evidence of pulmonary embolism. ? 2. Bilateral areas of peribronchial consolidation redemonstrated.? The findings are suggestive of pneumonia but the differential includes inflammatory processes such as drug reaction as well as lymphangitic carcinomatosis which is considered less likely. ? 3. Progressive increase in size of bilateral pulmonary nodules consistent with metastatic disease. ? 4. Partially visualized upper abdomen redemonstrates multiple [place] mass lesions, pneumobilia, splenomegaly, and other findings as described on the concurrent CT of the chest abdomen pelvis.? MDM Narrative Medical decision making narrative: 57-year-old male currently on chemotherapy for adenocarcinoma of the pancreas who is had prior Whipple, patient had common bile duct stent placed or attempted and states he then had a drain placed afterwards. Was removed about 6 weeks ago. Patient has had fever that started in the last 24 hours no other clear source of infection, he is at risk for neutropenic fever. White count is 1.4, he is 17% bands. Patient has a hemoglobin of 9 was 11 on November 18 with platelets of 49 and was 106 at that time. Coags show an INR 1.5. Patient has creatinine at baseline at 0.54, potassium slightly low at 3.2 and replaced orally. Sodium 134, chloride 94 with a CO2 of 33 and a BUN of 8. Initial lactate was 2.8 improved to 1.4 here, total bili is 1.2 with AST ALT normal alk- phos of 373. Patient's procalcitonin is 0.33. He did have a for [facility] respiratory panel for COVID/influenza and RSV which was negative. Urine showed leukocyte esterase Chest x-ray did not show any clear source of infection. Because patient had recent instrumentation last [address] chest abdomen pelvis was obtained. Patient was covered with broad-spectrum antibiotics with cefepime for possible neutropenic fever as well as Flagyl for possible intra-abdominal process. Cultures were obtained patient received 30 cc/kilos bolus. He has made main map around 70 but has been 100-90 systolic. Appears typically be 130s. He is not been hypoxic tachycardia significantly improves after fever was treated. Patie nt received tylenol for fever. CT chest abdomen pelvis does show bilateral pneumonia patient stent appears surrounded by mass but no blockage. Patient has some pneumobilia, possibly secondary to cholangitis but patient no as no abdominal pain, no elevation LFTs other than alk-phos wishes suspect with his cancer. No changes in peritoneal nodularity or fluid. Suspect pneumonia is his main source of infection. Patient does have coverage for this as well. Patient's blood pressure has been slowly trending down words despite 30 cc/kilos bolus we will continue with fluids but did start a small dose of norepinephrine. Patient himself does not feel symptomatic at this time. Case discussed with Dr Reich: Received turned over. Review patient's history and physical exam. Patient's CTA of the chest shows no pulmonary emboli. Plan will be to admit to the hospital for pneumonia and neutropenia. Dr. Jhaveri will admit for further evaluation and treatment. Critical Care Time <Kate Shannon, DO - Last Filed: 12/18/22 09:02> Critical Care Time Attestation: The high probability of a clinically significant, sudden or life threatening deterioration of the [cardiac, pulm] system(s) required my full and direct attention, intervention and personal management. The aggregate critical care time was [] minutes. This time is in addition to time spent performing reported procedures but includes the following: [x] Data Review and interpretation [x] Patient assessment and monitoring of vital signs [x] Documentation [x] Medication orders and management <Kulwinder Reich DO - Last Filed: 12/18/22 00:09> Critical Care Time Critical Care Time: Yes Total Critical Care Time: 35 Attestation: The high probability of a clinically significant, sudden or life threatening deterioration of the [cardiac, pulm] system(s) required my full and direct attention, intervention and personal management. The aggregate critical care time was [35] minutes. This time is in addition to time spent performing reported procedures but includes the following: [x] Data Review and interpretation [x] Patient assessment and monitoring of vital signs [x] Documentation [x] Medication orders and management Discharge Plan Departure Patient Disposition: Admitted As Inpatient Clinical Impression: Fever, Leukopenia, Pneumonia, Pulmonary embolism Admit Date/Time: 12/18/22 00:41 Admit Provider: Denisa Jhaveri
[2022-12-17] MEDS: NOREPINEPHRINE BITARTRATE/D5W 4 MG/250 ML PLAST..BAG 15 MG IV (19:39)
[2022-12-17 19:42] LABS: Bacteria Urine Few (2-10); Culture Indicated Urine Cult Not Indicated; Mucus Urine 4+ (Negative); RBC Urine 0-1/HPF (0-5/HPF); Squamous Epithelial Cell Urine None Seen (0-5/HPF); WBC Urine 1-5/HPF (0-5/HPF)
--- NOTE | 2022-12-17 19:50 | DI.CT.S_ITS ---
PROCEDURE: CT ANGIO CHEST PE PROTOCOL INDICATIONS: recent PEs TECHNIQUE: After the administration of intravenous contrast, 2 mm thick sections acquired from the pulmonary apices to the posterior costophrenic angles. 3-dimensional maximum intensity projection (MIP) coronal and sagittal reformats were then acquired through the thorax. For radiation dose reduction, the following was used: automated exposure control, adjustment of mA and/or kV according to patient size. COMPARISON: CT, CT CHEST ABD PEL W CON, 05/26/2022, 13:45. [facility], CT, CT CHEST ABD PEL W CON, 11/23/2022, 11:04. [facility], CT, CT CHEST ABD PEL W CON, 12/17/2022, 18:55. FINDINGS: Image quality: None. Pulmonary arteries: Pulmonary arteries demonstrate no intraluminal filling defects to suggest central pulmonary embolism. There is enlargement of the pulmonary arteries, with the main pulmonary artery measuring up to 3.4 cm. Lower Neck: No lymphadenopathy by size criteria. Thyroid: Visualized thyroid demonstrates no discrete nodules. Axillae: No lymphadenopathy by size criteria. Chest Wall: There is a right chest wall subclavian Port-A-Cath with the tip extending into the superior vena cava. Bones: Visualized osseous structures demonstrate no suspicious lesions. Lungs and Airways: There is peribronchial consolidation medially within the right lower lobe as well as within the inferior left lingula and superior segment of the left lower lobe are redemonstrated. Bilateral scattered pulmonary nodules appear progressively increased in size. A factory representative left lower lobe nodule measuring 0.6 cm on series 5, image 168 is increased in size from 0.4 cm on the 11/23/2022 study. In the right upper lobe, a 0.6 cm nodule on series 5, image 120 is increased from 0.4 cm on the 11/23/2022 study. Pleura: No pneumothorax or pleural effusions. Heart: Heart size is mildly enlarged. No pericardial effusion. Thoracic Vessels: The thoracic aorta is normal in size. Mediastinum and Amelie: No lymphadenopathy by size criteria. Esophagus: No wall thickening. No hiatal hernia. Abdomen: Visualized upper abdomen redemonstrates a partially visualized biliary stent in the right hepatic lobe. Multiple hypoattenuating mass lesions are also demonstrated within the visualized right hepatic lobe. There is pneumobilia again noted. The spleen is enlarged, measuring up to 18.3 cm. IMPRESSION: 1. No evidence of pulmonary embolism. 2. Bilateral areas of peribronchial consolidation redemonstrated. The findings are suggestive of pneumonia but the differential includes inflammatory processes such as drug reaction as well as lymphangitic carcinomatosis which is considered less likely. 3. Progressive increase in size of bilateral pulmonary nodules consistent with metastatic disease. 4. Partially visualized upper abdomen redemonstrates multiple Paddock mass lesions, pneumobilia, splenomegaly, and other findings as described on the concurrent CT of the chest abdomen pelvis. Dictated by: Mnoty Osorio M.D. on 12/17/2022 at 22:35 Approved by: Monty Osorio M.D. on 12/17/2022 at 22:52
[2022-12-17 20:47] LABS: Creatine Kinase 22 U/L (55-170)
[2022-12-17 21:00] LABS: NT-proBNP (BNP-Adult 18+) 369 pg/mL (<125); Troponin I < 0.012 ng/mL (0.01-0.034)
[2022-12-18] VITALS (65 sets, daily range): BP systolic 90–123; BP diastolic 53–80; PULSE 63–92; RESP 4–34; TEMP 36.7–37.3; O2SAT 77–100; BMI 27.5
--- NOTE | 2022-12-18 01:16 | P.HP_ITS ---
History of Present Illness History of Present Illness Date Patient Seen: 12/18/22 Time Patient Seen: 02:34 Date of Onset of Symptoms: 12/17/22 Chief complaint: Fever Narrative: States that 12/17 he started to have fever with mild muscle aches and presented to ED. 12/16 in the evening he had an episode of nausea with non-bloody, non- bilious emesis after eating chili and laying down. He tolerated breakfast the next morning without continued symptoms. Denies cough, CP, SOB, GI or symptoms. Denies viral prodrome type symptomatology, no sick contacts. States last chemotherapy was 2 weeks ago, prior to that it had been on hold for pancyto penia. He was started on anticoagulation for acute PE last month, denies missed doses of medication. He does have hiccups and has been taking Baclofen at home which helps. [facility] Medical History (Updated 12/18/22 @ 01:43 by Denisa Jhaveri DO) Adenocarcinoma of head of pancreas (~01/2019) Diabetes Hematochezia (01/15/19) HLD (hyperlipidemia) Pancytopenia due to chemotherapy Surgical History S/P ERCP (01/18/19) Social History Smoking Status: Former smoker Meds Home Medications and Allergies Home Medications Medication Instructions Recorded Confirmed Type atorvastatin 40 mg tablet 40 mg PO DAILY 02/05/19 11/18/22 History insulin glargine 100 unit/mL 29 unit SUBCUT BID 02/05/19 11/18/22 History subcutaneous solution (Lantus U-100 Insulin) insulin aspart U-100 100 unit/mL 3 unit TID 01/03/20 11/18/22 History subcutaneous solution (Novolog U-100 Insulin aspart) metformin 1,000 mg tablet,extended 1,000 mg PO BID 08/04/20 11/18/22 History release 24hr gabapentin 300 mg capsule 300 mg PO TID chemotherapy related 02/23/21 11/18/22 Rx neuropathy #90 caps fluorouracil 2.5 gram/50 mL See Rx Instructions .Route 12/21/21 02/01/22 Rx intravenous solution .COMPLEX CHEMOTHERAPY #1 device ondansetron 4 mg disintegrating 4 mg PO Q6H #30 tabs 01/12/22 11/18/22 Rx tablet levofloxacin 750 mg tablet 750 mg PO DAILY Neutropenia #7 tabs 02/01/22 Rx prochlorperazine maleate 10 mg 10 mg PO Q6H PRN nausea/vomiting. 03/29/22 Rx tablet (Compazine) #60 tabs opxfll-pjbtjukk-esnhbbq 1 cap PO DAILY 11/18/22 11/18/22 History 4,500-25,000-20,000 unit capsule,delayed rel lorazepam 0.5 mg tablet 0.5 mg PO BEDTIME PRN insomina #20 11/18/22 Rx tabs apixaban 5 mg (74 tabs) tablets in See Rx Instructions .Route 11/23/22 Rx a dose pack (Eliquis DVT-PE Treat .COMPLEX right seg PE 30 days #74 30D Start) ea Allergies Allergy/AdvReac Type Severity Reaction Status Date / Time No Known Drug Allergies Allergy Verified 03/19/19 12:18 Review of Systems Review of Systems ROS: Yes All systems reviewed with the patient and are negative except as otherwise documented Constitutional Constitutional: Reports fever(s) Gastrointestinal Gastrointestinal: Reports nausea and Reports vomiting Musculoskeletal Musculoskeletal: Reports myalgias Exam Vital Signs (past 8 hours): - 12/17/22 18:32 12/17/22 17:30 12/17/22 17:43 Temperature 98 F Pulse Rate 85 84 Respiratory Rate 30 H 27 H Blood Pressure Pulse Oximetry 98 98 Oxygen Delivery Method Oxygen Flow Rate 12/17/22 17:43 12/17/22 17:45 12/17/22 18:00 Temperature Pulse Rate 84 85 Respiratory Rate 25 H 10 L Blood Pressure 97/58 L Pulse Oximetry 97 96 Oxygen Delivery Method Oxygen Flow Rate 12/17/22 18:07 12/17/22 18:07 12/17/22 18:15 Temperature Pulse Rate 90 92 H Respiratory Rate 33 H 18 Blood Pressure 95/55 L Pulse Oximetry 96 97 Oxygen Delivery Method Oxygen Flow Rate 12/17/22 18:16 12/17/22 18:16 12/17/22 18:30 Temperature Pulse Rate 100 H Respiratory Rate 30 H Blood Pressure 92/55 L 95/52 L Pulse Oximetry 96 Oxygen Delivery Method Oxygen Flow Rate 12/17/22 18:30 12/17/22 18:58 12/17/22 18:59 Temperature Pulse Rate 79 80 79 Respiratory Rate 17 14 Blood Pressure Pulse Oximetry 97 97 Oxygen Delivery Method Oxygen Flow Rate 12/17/22 18:59 12/17/22 19:00 12/17/22 19:00 Temperature Pulse Rate 79 Respiratory Rate 14 Blood Pressure 95/56 L 92/56 L Pulse Oximetry 97 Oxygen Delivery Method Oxygen Flow Rate 12/17/22 19:14 12/17/22 19:14 12/17/22 19:15 Temperature Pulse Rate 86 Respiratory Rate 25 H Blood Pressure 90/57 L 87/51 L Pulse Oximetry 97 Oxygen Delivery Method Oxygen Flow Rate 12/17/22 19:15 12/17/22 19:21 12/17/22 19:21 Temperature Pulse Rate 87 73 Respiratory Rate 28 H 19 Blood Pressure 84/50 L Pulse Oximetry 97 96 Oxygen Delivery Method Oxygen Flow Rate 12/17/22 19:25 12/17/22 19:25 12/17/22 19:30 Temperature Pulse Rate 71 Respiratory Rate 15 Blood Pressure 82/49 L 82/50 L Pulse Oximetry 96 Oxygen Delivery Method Oxygen Flow Rate 12/17/22 19:30 12/17/22 19:35 12/17/22 19:35 Temperature Pulse Rate 72 72 Respiratory Rate 14 19 Blood Pressure 90/57 L Pulse Oximetry 97 97 Oxygen Delivery Method Oxygen Flow Rate 12/17/22 19:40 12/17/22 19:40 12/17/22 19:45 Temperature Pulse Rate 70 Respiratory Rate 14 Blood Pressure 92/55 L 114/72 Pulse Oximetry 96 Oxygen Delivery Method Oxygen Flow Rate 12/17/22 19:45 12/17/22 19:50 12/17/22 19:50 Temperature Pulse Rate 67 65 Respiratory Rate 13 17 Blood Pressure 147/75 H Pulse Oximetry 97 96 Oxygen Delivery Method Oxygen Flow Rate 12/17/22 19:55 12/17/22 19:55 12/17/22 20:00 Temperature Pulse Rate 66 Respiratory Rate 17 Blood Pressure 140/78 108/65 Pulse Oximetry 96 Oxygen Delivery Method Oxygen Flow Rate 12/17/22 20:00 12/17/22 20:10 12/17/22 20:10 Temperature Pulse Rate 69 74 Respiratory Rate 15 24 Blood Pressure 109/56 L Pulse Oximetry 96 97 Oxygen Delivery Method Oxygen Flow Rate 12/17/22 20:15 12/17/22 20:15 12/17/22 20:30 Temperature Pulse Rate 70 Respiratory Rate 11 L Blood Pressure 109/61 118/64 Pulse Oximetry 99 Oxygen Delivery Method Oxygen Flow Rate 12/17/22 20:30 12/17/22 20:45 12/17/22 20:45 Temperature Pulse Rate 66 67 Respiratory Rate 10 L 12 Blood Pressure 91/54 L Pulse Oximetry 99 96 Oxygen Delivery Method Oxygen Flow Rate 12/17/22 21:00 12/17/22 21:00 12/17/22 21:40 Temperature Pulse Rate 70 Respiratory Rate 18 Blood Pressure 96/56 L 102/61 Pulse Oximetry 96 Oxygen Delivery Method Room Air Oxygen Flow Rate 12/17/22 21:40 12/17/22 21:45 12/17/22 22:00 Temperature Pulse Rate 74 67 65 Respiratory Rate 14 16 Blood Pressure Pulse Oximetry 100 99 97 Oxygen Delivery Method Oxygen Flow Rate 12/17/22 22:15 12/17/22 22:30 12/17/22 22:45 Temperature Pulse Rate 67 67 65 Respiratory Rate 16 14 16 Blood Pressure Pulse Oximetry 96 97 98 Oxygen Delivery Method Oxygen Flow Rate 12/17/22 23:00 12/17/22 23:02 12/17/22 23:02 Temperature Pulse Rate 65 64 Respiratory Rate 13 12 Blood Pressure 102/63 Pulse Oximetry 98 100 91 Oxygen Delivery Method Oxygen Flow Rate 12/17/22 23:15 12/17/22 23:20 12/17/22 23:30 Temperature Pulse Rate 63 Respiratory Rate 16 14 Blood Pressure 96/61 Pulse Oximetry 85 L 98 Oxygen Delivery Method Room Air Nasal Cannula Oxygen Flow Rate 1.5 12/17/22 23:30 12/17/22 23:45 12/18/22 00:00 Temperature Pulse Rate 62 65 63 Respiratory Rate 14 16 16 Blood Pressure Pulse Oximetry 100 100 99 Oxygen Delivery Method Nasal Cannula Oxygen Flow Rate 1.5 12/18/22 00:15 12/18/22 00:15 12/18/22 00:30 Temperature Pulse Rate 68 Respiratory Rate 16 Blood Pressure 123/61 112/61 Pulse Oximetry 99 Oxygen Delivery Method Oxygen Flow Rate 12/18/22 00:30 Temperature Pulse Rate 65 Respiratory Rate 14 Blood Pressure Pulse Oximetry 99 Oxygen Delivery Method Room Air Oxygen Flow Rate Oxygen Delivery Method Room Air Oxygen Flow Rate 1.5 Const General: cooperative, comfortable and No acute distress HENNH Head: normocephalic and atraumatic Eyes General: appearance normal, both eyes and all related structures Pupils: PERRL EOM: EOM intact bilaterally Neck Neck: normal visual inspection Chest Chest: normal inspection of the chest Resp Effort & Inspection: normal respiratory effort GI Inspection: normal to inspection and non-distended Skin General: no rashes or lesions noted Neuro General: patient alert, patient oriented x3 and CN's II-XI intact bilaterally Extrem General: normal to inspection and full ROM Psych Appearance: grossly normal Objective ECG Impression: None Imaging CTA: My impression: Images reviewed, agree with radiologist. No acute PE, bilateral pneumonia vs chemotherapy reaction. Radiologist's impression: PROCEDURE:? CT ANGIO CHEST PE PROTOCOL ? INDICATIONS:? recent PEs ? TECHNIQUE:? After the administration of intravenous contrast, 2 mm thick sections acquired from the pulmonary apices to the posterior costophrenic angles.? 3-dimensional maximum intensity projection (MIP) coronal and sagittal reformats were then acquired through the thorax.? For radiation dose reduction, the following was used:? automated exposure c ontrol, adjustment of mA and/or kV according to patient size.? ? COMPARISON:? CT, CT CHEST ABD PEL W CON, 05/26/2022, 13:45.? [facility], CT, CT CHEST ABD PEL W CON, 11/23/2022, 11:04.? [facility], CT, CT CHEST ABD PEL W CON, 12/17/2022, 18:55. ? FINDINGS:? Image quality:? None. ? Pulmonary arteries:? Pulmonary arteries demonstrate no intraluminal filling defects to suggest central pulmonary embolism.? There is enlargement of the pulmonary arteries, with the main pulmonary artery measuring up to 3.4 cm. ? Lower Neck: No lymphadenopathy by size criteria. Thyroid:? Visualized thyroid demonstrates no discrete nodules. Axillae: No lymphadenopathy by size criteria. Chest Wall:? There is a right chest wall subclavian Port-A-Cath with the tip extending into the superior vena cava. Bones: Visualized osseous structures demonstrate no suspicious lesions. ? Lungs and Airways:? There is peribronchial consolidation medially within the right lower lobe as well as within the inferior left lingula and superior segment of the left lower lobe are redemonstrated.? Bilateral scattered pulmonary nodules appear progressively increased in size.? A construction sales representative left lower lobe nodule measuring 0.6 cm on series 5, image 168 is increased in size from 0.4 cm on the 11/23/2022 study.? In the right upper lobe, a 0.6 cm nodule on series 5, image 120 is increased from 0.4 cm on the 11/23/2022 study.? Pleura: No pneumothorax or pleural effusions.? ? Heart: Heart size is mildly enlarged.? No pericardial effusion. Thoracic Vessels: The thoracic aorta is normal in size.? Mediastinum and Amelie: No lymphadenopathy by size criteria. Esophagus: No wall thickening. No hiatal hernia. ? Abdomen:? Visualized upper abdomen redemonstrates a partially visualized biliary stent in the right hepatic lobe.? Multiple hypoattenuating mass lesions are also demonstrated within the visualized right hepatic lobe.? There is pneumobilia again noted.? The spleen is enlarged, measuring up to 18.3 cm. ? IMPRESSION:? ? 1. No evidence of pulmonary embolism. ? 2. Bilateral areas of peribronchial consolidation redemonstrated.? The findings are suggestive of pneumonia but the differential includes inflammatory processes such as drug reaction as well as lymphangitic carcinomatosis which is considered less likely. ? 3. Progressive increase in size of bilateral pulmonary nodules consistent with metastatic disease. ? 4. Partially visualized upper abdomen redemonstrates multiple Paddock mass lesions, pneumobilia, splenomegaly, and other findings as described on the concurrent CT of the chest abdomen pelvis.? ? Dictated by: Monty Osorio M.D. on 12/17/2022 at 22:35 ? ? Approved by: Monty Osorio M.D. on 12/17/2022 at 22:52 ? CT scan - abdomen: My impression: Images reviewed, agree with radiologist. Radiologist's impression: PROCEDURE:? CT CHEST ABD PEL W CON ? INDICATIONS:? sepsis, biliary drain 6 weeks ago. chemo pancreatic ca ? TECHNIQUE:? After the administration of intravenous contrast, 5 mm thick sections acquired from the lung apices to the symphysis.? 5 mm coronal and sagittal reformats were performed, with additional 7 mm MIP reformats through the lungs.? For radiation dose reduction, the following was used:? automated exposure control, adjustment of mA and/or kV according to patient size.? ? COMPARISON:? [facility], CT, CT CHEST ABD PEL W CON, 11/23/2022, 11:04. ? FINDINGS:? Image quality:? Excellent.? ? CHEST:? Lungs and pleura:? Mild reticulonodular pulmonary opacity.? Right upper lobe pulmonary nodule measuring 6 mm diameter.? Multiple smaller bilateral pulmonary nodules are present.? Airspace opacity within the right lung base and left upper lobe posteriorly..? No pleural effusions or pneumothorax.? Central and peripheral airways appear patent and normal in caliber.? ? Mediastinum:? Heart size is normal.? Calcification of the coronary vasculature is present.? No pericardial effusion.? No mediastinal or hilar adenopathy by size criteria.? Thoracic aorta and central pulmonary arteries are normal in size.? Esophagus is normal in caliber.? No hiatal hernia.? ? Chest wall:? No axillary or supraclavicular adenopathy by size criteria.? Thyroi d gland is within normal limits .? ? ? ABDOMEN:? Solid organs:? Increased right hepatic lobe mass measuring roughly 11 cm, which encases and possibly invades a metallic biliary stent.? Gallbladder is not seen .? No change in mild biliary ductal dilatation.? Increased, moderate pneumobilia.? Pancreas enhances normally.? Spleen is enlarged.? No adrenal nodules.? Kidneys demonstrate normal size and enhancement, without hydronephrosis.? ? Peritoneum and bowel:? Bowel loops demonstrate normal wall thickness and caliber.? No pneumoperitoneum.? Small amount of ascites.? No change in peritoneal nodularity and ascites, consistent with peritoneal carcinomatosis. ? Nodes and vessels:? No retroperitoneal or mesenteric adenopathy by size criteria.? Aorta and inferior vena cava are normal in size.? ? Miscellaneous:? No ventral hernias.? ? ? PELVIS:? Genitourinary:? Bladder wall thickness is normal.? ? Miscellaneous:? No inguinal hernias or adenopathy.? ? Bones:? No suspicious bony lesions.? No vertebral body compression fractures.? ? IMPRESSION:? 1. Increased right hepatic lobe mass which appears to encase the biliary stent. 2. Bilateral pneumonia. 3. Mild degree of pulmonary metastatic disease. 4. Coronary artery disease. 5. Increased pneumobilia, possibly secondary to cholangitis. 6. No change in peritoneal nodularity and fluid, suggestive of peritoneal carcinomatosis. ? 7. Splenomegaly.? ? Dictated by: Gagan Carmichael M.D. on 12/17/2022 at 19:15 ? ? Approved by: Gagan Carmichael M.D. on 12/17/2022 at 19:19 ? Labs 12/18/22 01:30 12/18/22 01:30 Labs: Laboratory Results - last 24 hr 12/17/22 12/17/22 12/17/22 14:50 15:00 15:00 WBC 1.4 L* RBC 3.29 L Hgb 9.0 L Hct 27.5 L MCV 83.4 MCH 27.4 MCHC 32.8 RDW 17.0 H Plt Count 49 L Neut % (Auto) Not Reportable Lymph % (Auto) Not Reportable Perkins % (Auto) Not Reportable Eos % (Auto) Not Reportable Baso % (Auto) Not Reportable Lymph # (Auto) Not Reportable Perkins # (Auto) Not Reportable Baso # (Auto) Not Reportable Total Counted 100 Seg Neutrophils % 49.0 Band Neutrophils % 17.0 H Lymphocytes % (Manual) 17.0 L Monocytes % (Manual) 14.0 H Metamyelocytes % 2.0 H Myelocytes % 1.0 H Neutrophils # (Manual) 924 L Platelet Estimate Decreased on smear RBC Morphology See below Anisocytosis 1+ H PT INR APTT Sodium 134 L Potassium 3.2 L Chloride 94 L Carbon Dioxide 33 H BUN 8 L Creatinine 0.54 L Estimated GFR > 60 BUN/Creatinine Ratio 14.8 Glucose 96 Lactate Calcium 8.1 L Total Bilirubin 1.2 AST 49 ALT 28 Alkaline Phosphatase 373 H Total Creatine Kinase Troponin I NT-Pro-B Natriuret Pep Total Protein 6.8 Albumin 3.0 L Globulin 3.8 Albumin/Globulin Ratio 0.8 L Lipase < 10 L Procalcitonin 0.33 Urine RBC Urine WBC Ur Squamous Epith Cells Urine Bacteria Urine Mucus Ur Culture Indicated? SARS-CoV-2 (PCR) Negative Influenza A (RT-PCR) Flu a negative Influenza B (RT-PCR) Flu b negative RSV (PCR) Negative 12/17/22 12/17/22 12/17/22 15:00 15:40 16:01 WBC RBC Hgb Hct MCV MCH MCHC RDW Plt Count Neut % (Auto) Lymph % (Auto) Perkins % (Auto) Eos % (Auto) Baso % (Auto) Lymph # (Auto) Perkins # (Auto) Baso # (Auto) Total Counted Seg Neutrophils % Band Neutrophils % Lymphocytes % (Manual) Monocytes % (Manual) Metamyelocytes % Myelocytes % Neutrophils # (Manual) Platelet Estimate RBC Morphology Anisocytosis PT 16.8 H INR 1.5 H APTT 25 L Sodium Potassium Chloride Carbon Dioxide BUN Creatinine Estimated GFR BUN/Creatinine Ratio Glucose Lactate 2.8 H 1.4 Calcium Total Bilirubin AST ALT Alkaline Phosphatase Total Creatine Kinase Troponin I NT-Pro-B Natriuret Pep Total Protein Albumin Globulin Albumin/Globulin Ratio Lipase Procalcitonin Urine RBC Urine WBC Ur Squamous Epith Cells Urine Bacteria Urine Mucus Ur Culture Indicated? SARS-CoV-2 (PCR) Influenza A (RT-PCR) Influenza B (RT-PCR) RSV (PCR) 12/17/22 12/17/22 19:01 20:30 WBC RBC Hgb Hct MCV MCH MCHC RDW Plt Count Neut % (Auto) Lymph % (Auto) Perkins % (Auto) Eos % (Auto) Baso % (Auto) Lymph # (Auto) Perkins # (Auto) Baso # (Auto) Total Counted Seg Neutrophils % Band Neutrophils % Lymphocytes % (Manual) Monocytes % (Manual) Metamyelocytes % Myelocytes % Neutrophils # (Manual) Platelet Estimate RBC Morphology Anisocytosis PT INR APTT Sodium Potassium Chloride Carbon Dioxide BUN Creatinine Estimated GFR BUN/Creatinine Ratio Glucose Lactate Calcium Total Bilirubin AST ALT Alkaline Phosphatase Total Creatine Kinase 22 L Troponin I < 0.012 NT-Pro-B Natriuret Pep 369 H Total Protein Albumin Globulin Albumin/Globulin Ratio Lipase Procalcitonin Urine RBC 0-1/hpf Urine WBC 1-5/hpf Ur Squamous Epith Cells None seen Urine Bacteria Few (2-10) H Urine Mucus 4+ H Ur Culture Indicated? Cult not indicated SARS-CoV-2 (PCR) Influenza A (RT-PCR) Influenza B (RT-PCR) RSV (PCR) Assessment & Plan Assessment and plan (1) Septic shock: Status: Acute Plan: Admit to ICU WBC 1.4 ANC 238, LA 1.4, BP 84/50 upon admission, procal negative CT RLL, [place] opacity concerning for pneumonic process, increased pneumobilia with benign abdominal exam; CTA negative for PE Covid/flu negative without viral symptomatology Troponin negative, BNP 369 Required Levophed in ED, able to wean off with adequate pressures Continue antibx with Cefepime for febrile neutropenia with possible multifocal pneumonia vs chemotherapy reaction (2) Neutropenia, febrile: Status: Acute (3) Multifocal pneumonia: Status: Acute (4) Pancytopenia due to chemotherapy: Status: Acute Plan: Consider Oncology consultation if leukopenia not improving, worsening Follows with Dr. 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
[2022-12-18] MEDS: CEFEPIME 2 GM in SODIUM CHLORIDE 0.9% 100 ML IV ×3 (01:52→17:25)
[2022-12-18] MEDS: SODIUM CHLORIDE 0.9% 1,000 ML 100 ML IV (01:52)
[2022-12-18 01:58] LABS: Lactate (Lactic Acid) 1.9 mmol/L (0.7-2.1)
[2022-12-18 02:00] LABS: Alanine Aminotransferase 25 IU/L (<50); Albumin 2.4 g/dL (3.5-5.0); Albumin Globulin Ratio 0.6 (1.0-2.8); Alkaline Phosphatase 328 U/L (38-126); Aspartate Aminotransferase 44 IU/L (17-59); BUN Creatinine Ratio 11.6 (6-22); Bilirubin Total 1.2 mg/dL (0.2-1.3); Blood Urea Nitrogen 5 mg/dL (9-20); Calcium 7.1 mg/dL (8.4-10.2); Carbon Dioxide 26 mmol/L (22-32); Chloride 104 mmol/L (98-107); Estimated Glomerular Filt Rate > 60 mL/min (>60); Globulin 3.7 g/dL (1.7-4.1); Glucose 119 mg/dL (70-100); HEMOLYSIS < 15 (0-50); Potassium 3.5 mmol/L (3.4-5.1); Sodium 135 mmol/L (137-145); Total Protein 6.1 g/dL (6.3-8.2)
[2022-12-18 02:01] LABS: Hematocrit 25.2 % (41-53); Hemoglobin 8.4 g/dL (13.5-17.5); Mean Corpuscular HGB Conc 33.2 % (30-36); Mean Corpuscular Hemoglobin 27.5 PG (26-34); Mean Corpuscular Volume 82.8 fL (80-100); Platelet Count 46 X10^3/uL (150-400); Red Blood Cell Count 3.04 X10^6/uL (4.5-5.9); Red Cell Distribution Width 16.7 % (11.6-14.8)
[2022-12-18 02:09] LABS: Add Manual Diff / Slide Review YES; White Blood Cell Count 1.6 X10^3/uL (4.5-11.0)
[2022-12-18] MEDS: BACLOFEN 10 MG TABLET PO ×2 (02:43→18:42)
[2022-12-18] MEDS: APIXABAN 5 MG TABLET PO ×3 (02:44→20:27)
[2022-12-18 04:09] LABS: Anisocytosis 1+; Hypochromasia 1+; Neutrophils Absolute Manual 832 /uL (3000-5900); Total Cells Counted 100
[2022-12-18 04:10] LABS: Platelet Estimate Decreased on smear
[2022-12-18] MEDS: HYDROCODONE/ACET 5/325 TABLET 1 TAB PO (04:22)
[2022-12-18 04:46] LABS: MRSA (Nasal) PCR Not Detected (Not Detect)
--- NOTE | 2022-12-18 06:31 | PC.NURSE ---
Admit Note-Patient brought to ICU room 229 at 0120, A/Ox4, able to ambulate in room with SBA without dizziness, SR, BP stable, see vital trends, afebrile, SpO2 98% on RA, LS dim in bases otherwise CTA. Denies nausea or abdominal pain, does have hiccups for which Tele Hospitalist ordered patients routine prn baclofen along with some of his other routine meds. NS @ 100ml/hr, Cefepime started. [place] for chronic back pain. Placed in Protective Isolation.
--- NOTE | 2022-12-18 08:00 | PM.HP.1 ---
History of Present Illness History of Present Illness Chief complaint: Fever Narrative: States that 12/17 he started to have fever with mild muscle aches and presented to ED. 12/16 in the evening he had an episode of nausea with non-bloody, non-bilious emesis after eating chili and laying down. He tolerated breakfast the next morning without continued symptoms. Denies cough, CP, SOB, GI or symptoms. Denies viral prodrome type symptomatology, no sick contacts. States last chemotherapy was 2 weeks ago, prior to that it had been on hold for pancytopenia. He was started on anticoagulation for acute PE last month, denies missed doses of medication. He does have hiccups and has been taking Baclofen at home which helps. [facility] Medical History (Updated 12/18/22 @ 01:43 by Denisa Jhaveri DO) Adenocarcinoma of head of pancreas (~01/2019) Diabetes Hematochezia (01/15/19) HLD (hyperlipidemia) Pancytopenia due to chemotherapy Surgical History S/P ERCP (01/18/19) Social History household members: none Smoking Status: Former smoker Meds Home Medications and Allergies Home Medications Medication Instructions Recorded Confirmed Type insulin glargine 100 unit/mL 29 unit SUBCUT BID 02/05/19 12/18/22 History subcutaneous solution (Lantus U-100 Insulin) insulin aspart U-100 100 unit/mL 3 unit TID 01/03/20 12/18/22 History subcutaneous solution (Novolog U-100 Insulin aspart) metformin 1,000 mg tablet,extended 500 mg PO BID 08/04/20 11/18/22 History release 24hr gabapentin 300 mg capsule 300 mg PO TID chemotherapy related 02/23/21 12/18/22 Rx neuropathy #90 caps fluorouracil 2.5 gram/50 mL See Rx Instructions .Route 12/21/21 02/01/22 Rx intravenous solution .COMPLEX CHEMOTHERAPY #1 device ondansetron 4 mg disintegrating 4 mg PO Q6H #30 tabs 01/12/22 12/18/22 Rx tablet prochlorperazine maleate 10 mg 10 mg PO Q6H PRN nausea/vomiting. 03/29/22 12/18/22 Rx tablet (Compazine) #60 tabs hmlxfw-[id number]-[id number] 1 cap PO DAILY 11/18/22 11/18/22 History 4,500-25,000-20,000 unit capsule,delayed rel lorazepam 0.5 mg tablet 0.5 mg PO BEDTIME PRN insomina #20 11/18/22 12/18/22 Rx tabs baclofen 10 mg tablet 5 mg PO TID PRN Hiccups 12/18/22 12/18/22 History cyclobenzaprine 10 mg tablet 10 mg PO TID PRN Muscle Pain 12/18/22 12/18/22 History hydrocodone 5 mg-acetaminophen 325 1 tab PO Q6H PRN moderate pain 12/18/22 12/18/22 History mg tablet ursodiol 250 mg tablet 500 mg PO BIDAC 12/18/22 12/18/22 History chlorpromazine 25 mg tablet 25 mg PO TID-QID PRN hiccups #30 12/19/22 Rx tabs Allergies Allergy/AdvReac Type Severity Reaction Status Date / Time No Known Drug Allergies Allergy Verified 03/19/19 12:18 Review of Systems Review of Systems ROS: Yes All systems reviewed with the patient and are negative except as otherwise documented Constitutional Constitutional: Reports fever(s) Gastrointestinal Gastrointestinal: Reports nausea and Reports vomiting Musculoskeletal Musculoskeletal: Reports myalgias Exam Vital Signs (past 8 hours): Oxygen Delivery Method Room Air Oxygen Flow Rate 1.5 Const General: cooperative, comfortable and No acute distress HENMT Head: normocephalic and atraumatic Eyes General: appearance normal, both eyes and all related structures Pupils: PERRL EOM: EOM intact bilaterally Neck Neck: normal visual inspection Chest Chest: normal inspection of the chest Resp Effort & Inspection: normal respiratory effort GI Inspection: normal to inspection and non-distended Skin General: no rashes or lesions noted Neuro General: patient alert, patient oriented x3 and CN's II-XI intact bilaterally Extrem General: normal to inspection and full ROM Psych Appearance: grossly normal Objective Labs 12/19/22 04:50 12/19/22 04:50 Assessment & Plan Assessment and plan (1) Septic shock: Status: Acute Plan: Admit to ICU WBC 1.4 ANC 238, LA 1.4, BP 84/50 upon admission, procal negative CT RLL, [place] opacity concerning for pneumonic process, increased pneumobilia with benign abdominal exam; CTA negative for PE Covid/flu negative without viral symptomatology Troponin negative, BNP 369 Required Levophed in ED, able to wean off with adequate pressures Continue antibx with Cefepime for febrile neutropenia with possible multifocal pneumonia vs chemotherapy reaction (2) Neutropenia, febrile: Status: Acute (3) Multifocal pneumonia: Status: Acute (4) Pancytopenia due to chemotherapy: Status: Acute Plan: Consider Oncology consultation if leukopenia not improving, worsening Follows with Dr. 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
[2022-12-18] MEDS: ATORVASTATIN 20 MG TABLET 40 MG PO (08:14)
[2022-12-18] MEDS: GABAPENTIN 300 MG CAPSULE PO ×2 (08:14→20:27)
[2022-12-18] MEDS: INSULIN GLARGINE 100 UNIT/ML 3ML PEN 15 UNIT SUBCUT ×2 (08:14→20:25)
--- NOTE | 2022-12-18 08:59 | CM.DANOTE ---
Reviewed chart with existing information, and patient discussed in multidisciplinary rounds this morning. Met with patient and introduced to care coordination and discharge planning. They agree to assessment. Pt is a 57 year old admitted for fever, neutropenia. Hx pancreatic Ca with active chemo every [address] Hammond at [facility]. States he is independent with all ADL?s but has a private sales support representative Hamzah Cleaning who assists with driving, shopping, appts. DCP is home with established care team. 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 PCP: mike at [facility] DME: None Payer: [employer] Medicare/ Barriers: none foreseen Felipa Mondragon RN, CM Discharge Planning/Care Management CM Discharge Assessment Start: 12/18/22 08:57 Freq: Status: Active Protocol: Document 12/18/22 08:57 BQ (Rec: 12/18/22 08:58 BQ [id number]) Discharge Planning Assessment Assigned Border Guard Felipa Mondragon RN, CM Advance Directives? Yes Advance Directives on File Yes: oncology History Provided By Patient Has Patient been admitted in last 30 No days? Prior Living Arrangements Apartment/Condo Household Members none Type of transporation used prior to Relies on Others admit Comment multimedia technician caregiver Hamzah Cleaning Independent with ADL's Yes Is patient alert and oriented? Yes Needs Assistance With Home Chores / Shopping Caregiver for Another No Barriers to Discharge No Discharge Plan Home Referrals Initiated None needed Whiteboard Updated in Patient Room with Yes name and ext. # of Border Guard Review Status In Process Next Review Type Continued Stay Review
[2022-12-18] MEDS: INSULIN LISPRO 100 UNIT/ML 3ML VIAL SUBCUT ×3 (12:13→20:25)
[2022-12-19] VITALS (25 sets, daily range): BP systolic 98–120; BP diastolic 57–69; PULSE 69–89; RESP 16–17; TEMP 36.6–37.2; O2SAT 94–99
[2022-12-19] MEDS: CEFEPIME 2 GM in SODIUM CHLORIDE 0.9% 100 ML IV (02:44)
[2022-12-19 05:47] LABS: BUN Creatinine Ratio 9.6 (6-22); Blood Urea Nitrogen 5 mg/dL (9-20); Calcium 7.6 mg/dL (8.4-10.2); Carbon Dioxide 31 mmol/L (22-32); Chloride 96 mmol/L (98-107); Estimated Glomerular Filt Rate > 60 mL/min (>60); Glucose 157 mg/dL (70-100); HEMOLYSIS < 15 (0-50); Potassium 3.5 mmol/L (3.4-5.1); Sodium 131 mmol/L (137-145)
[2022-12-19 06:06] LABS: Hematocrit 24.1 % (41-53); Mean Corpuscular HGB Conc 33.2 % (30-36); Mean Corpuscular Hemoglobin 27.3 PG (26-34); Mean Corpuscular Volume 82.2 fL (80-100); Platelet Count 54 X10^3/uL (150-400); Red Blood Cell Count 2.94 X10^6/uL (4.5-5.9); Red Cell Distribution Width 16.5 % (11.6-14.8)
[2022-12-19 06:34] LABS: White Blood Cell Count 0.9 X10^3/uL (4.5-11.0)
[2022-12-19 06:35] LABS: Add Manual Diff / Slide Review YES
[2022-12-19 08:06] LABS: Neutrophils Absolute Manual 432 /uL (3000-5900); Total Cells Counted 50
[2022-12-19 08:07] LABS: Anisocytosis 1+
[2022-12-19] MEDS: INSULIN LISPRO 100 UNIT/ML 3ML VIAL SUBCUT (08:47)
[2022-12-19] MEDS: INSULIN GLARGINE 100 UNIT/ML 3ML PEN 15 UNIT SUBCUT (08:47)
[2022-12-19] MEDS: GABAPENTIN 300 MG CAPSULE PO (08:48)
[2022-12-19] MEDS: ATORVASTATIN 20 MG TABLET 40 MG PO (08:48)
[2022-12-19] MEDS: APIXABAN 5 MG TABLET PO (08:48)
--- NOTE | 2022-12-19 09:31 | PM.DS.1 ---
History of Present Illness History of Present Illness Date Patient Seen: 12/18/22 Time Patient Seen: 02:34 Date of Onset of Symptoms: 12/17/22 Chief complaint: Fever Narrative: States that 12/17 he started to have fever with mild muscle aches and presented to ED. 12/16 in the evening he had an episode of nausea with non-bloody, non-bilious emesis after eating chili and laying down. He tolerated breakfast the next morning without continued symptoms. Denies cough, CP, SOB, GI or symptoms. Denies viral prodrome type symptomatology, no sick contacts. States last chemotherapy was 2 weeks ago, prior to that it had been on hold for pancytopenia. He was started on anticoagulation for acute PE last month, denies missed doses of medication. He does have hiccups and has been taking Baclofen at home which helps. Discharge Providers Provider Date of admission: 12/18/22 00:41 Discharge Date: 12/19/22 Primary care physician: Deb LYONS Provider Discharge provider: Alexx Sotelo, DO Summary Hospital Course Discharge Diagnosis: (1) Septic shock: ?Status:?Acute ?Plan: Admit to ICU WBC 1.4 ANC 238, LA 1.4, BP 84/50 upon admission, procal negative CT RLL, [place] opacity concerning for pneumonic process, increased pneumobilia with benign abdominal exam; CTA negative for PE Covid/flu negative without viral symptomatology Troponin negative, BNP 369 Required Levophed in ED, able to wean off with adequate pressures Continue antibx with Cefepime for febrile neutropenia with possible multifocal pneumonia vs chemotherapy reaction Blood cultures negative at 48 hours Placed on 10 days of po levaquin (2) Neutropenia, febrile: ?Status:?Acute (3) Multifocal pneumonia: ?Status:?Acute (4) Pancytopenia due to chemotherapy: ?Status:?Acute ?Plan: Consider Oncology consultation if leukopenia not improving, worsening Follows with Dr. Hammond [facility] (5) Hypokalemia: ?Status:?Acute ?Plan: Replaced, monitor and replace as indicated; check magnesium level (6) Hyponatremia: ?Status:?Acute ?Plan: Mild hyponatremia 134, Suspect multifactorial, encourage adequate oral intake Assessment & Plan narrative: Chronic conditions Pancreatic adenocarcinoma with pulmonary mets, peritoneal carcinamatosis s/p biliary stent on [id number]; home Levofloxacin for ppx held 2/2 above Chemotherapy induced neuropathy, continue home gabapentin IDDM type II, continue basal insulin with reduced dose, SSI; hold home Metformin History of PE, CTA negative for acute PE, continue anticoagulation with Apixaban Hiccups, continue home Baclofen prn Insomnia, continue home Ativan Chronic pain syndrome, Tylenol prn, monitor for indication to escalate HLD, continue home statin therapy History of tobacco use Hospital Course: Admitted for septic shock due to possible pneumonia in setting of neutropenic fever. Febrile to 102.7F. Start on broad spectrum abx and fevers resolved. All cultures negative. Placed on 10 days of po levaquin and discharged to f/u with oncologists. Exam Vital Signs (past 8 hours): - 12/19/22 02:00 12/19/22 02:00 12/19/22 02:01 Temperature Pulse Rate 72 71 Respiratory Rate Blood Pressure 107/61 Pulse Oximetry 94 96 12/19/22 03:00 12/19/22 03:00 12/19/22 03:04 Temperature Pulse Rate 75 77 Respiratory Rate Blood Pressure 116/66 Pulse Oximetry 98 99 12/19/22 04:00 12/19/22 04:00 12/19/22 04:01 Temperature 99.0 F Pulse Rate 78 78 Respiratory Rate 16 Blood Pressure 98/60 Pulse Oximetry 98 98 12/19/22 05:00 12/19/22 05:00 12/19/22 05:01 Temperature Pulse Rate 73 74 Respiratory Rate Blood Pressure 110/58 L Pulse Oximetry 97 97 12/19/22 06:00 12/19/22 06:00 12/19/22 06:10 Temperature Pulse Rate 85 86 Respiratory Rate Blood Pressure 104/57 L Pulse Oximetry 97 97 12/19/22 07:00 12/19/22 07:00 12/19/22 07:15 Temperature Pulse Rate 69 74 Respiratory Rate Blood Pressure 101/61 Pulse Oximetry 98 99 Oxygen Delivery Method Room Air Oxygen Flow Rate 1.5 Const General: cooperative, comfortable and No acute distress [facility] Head: normocephalic and atraumatic Eyes General: appearance normal, both eyes and all related structures Pupils: PERRL EOM: EOM intact bilaterally Neck Neck: normal visual inspection Chest Chest: normal inspection of the chest Resp Effort & Inspection: normal respiratory effort GI Inspection: normal to inspection and non-distended Skin General: no rashes or lesions noted Neuro General: patient alert, patient oriented x3 and CN's II-XI intact bilaterally Extrem General: normal to inspection and full ROM Psych Appearance: grossly normal Objective Labs 12/19/22 04:50 12/19/22 04:50 Labs: Laboratory Results - last 24 hr 12/19/22 12/19/22 04:50 04:50 WBC 0.9 L* RBC 2.94 L Hgb 8.0 L Hct 24.1 L MCV 82.2 MCH 27.3 MCHC 33.2 RDW 16.5 H Plt Count 54 L Neut % (Auto) Not Reportable Lymph % (Auto) Not Reportable [place] % (Auto) Not Reportable Eos % (Auto) Not Reportable Baso % (Auto) Not Reportable Lymph # (Auto) Not Reportable [place] # (Auto) Not Reportable Baso # (Auto) Not Reportable Total Counted 50 Seg Neutrophils % 38.0 Band Neutrophils % 10.0 H Lymphocytes % (Manual) 24.0 L Monocytes % (Manual) 26.0 H Eosinophils % (Manual) 2.0 Neutrophils # (Manual) 432 L RBC Morphology See below Anisocytosis 1+ H Sodium 131 L Potassium 3.5 Chloride 96 L Carbon Dioxide 31 BUN 5 L Creatinine 0.52 L Estimated GFR > 60 BUN/Creatinine Ratio 9.6 Glucose 157 H Calcium 7.6 L [facility] Medical History (Updated 12/18/22 @ 01:43 by Denisa Jhaveri DO) Adenocarcinoma of head of pancreas (~01/2019) Diabetes Hematochezia (01/15/19) HLD (hyperlipidemia) Pancytopenia due to chemotherapy Surgical History S/P ERCP (01/18/19) Social History household members: none Smoking Status: Former smoker Discharge Plan Discharge Plan Patient Disposition: Home Provider Discharge Comment: You were admitted for fevers which we think was due to a pneumonia. Your fevers resolved on IV antibiotics. I've put you on 10 more days of an oral antibiotic. I've also sent a med for your hiccups, but do not take it while on the antibiotic as they can interact. Discharge orders & Medications Prescriptions: New levofloxacin 750 mg tablet 750 mg PO DAILY 10 Days Qty: 10 0RF chlorpromazine 25 mg tablet 25 mg PO TID-QID PRN (Reason: hiccups) Qty: 30 0RF Continued cyclobenzaprine 10 mg Tablet 10 mg PO TID PRN (Reason: Muscle Pain) hydrocodone-acetaminophen 5-325 mg tablet 1 tab PO Q6H PRN (Reason: moderate pain) baclofen 10 mg Tablet 5 mg PO TID PRN (Reason: Hiccups) ursodiol 250 mg tablet 500 mg PO BIDAC insulin glargine [Lantus U-100 Insulin] 100 unit/mL Solution 29 unit SUBCUT BID insulin aspart U-100 [Novolog U-100 Insulin aspart] 100 unit/mL Solution 3 unit TID metformin 1,000 mg Tablet Extended Release 24hr 500 mg PO BID gabapentin 300 mg Capsule 300 mg PO TID Qty: 90 5RF fluorouracil 2.5 gram/50 mL Solution See Rx Instructions .ROUTE .COMPLEX Qty: 1 0RF Rx Instructions: 2400 mg/m2 iv continuous infusion over 46 hours ondansetron 4 mg Tablet,Disintegrating 4 mg PO Q6H Qty: 30 0RF prochlorperazine maleate [Compazine] 10 mg Tablet 10 mg PO Q6H PRN (Reason: nausea/vomiting.) Qty: 60 1RF mkibfo-yuyetjdc-nutlwmp 4,500-25,000- 20,000 unit Capsule,Delayed Release(Dr/Ec) 1 cap PO DAILY lorazepam 0.5 mg Tablet 0.5 mg PO BEDTIME PRN (Reason: insomina) Qty: 20 0RF Eliquis DVT-PE Treat 30D Start 5 mg (74 tabs) Tablets,Dose Pack See Rx Instructions .ROUTE .COMPLEX 30 Days Qty: 74 0RF Rx Instructions: orally per package directions Follow up/Referrals: ProviderDeb [Primary Care Provider] - Visit Report/Discharge Packet Stand Alone Forms: Patient Portal/API, Stroke Signs & Symptoms Discharge Data Primary Care Provider: ProviderDeb Discharges patient from system. Discharge Date/Time: 12/19/22 10:57 Quality VTE Deep Vein Thrombosis/Pulmonary Embolism Present on Admission: Yes
[2022-12-20 04:44] LABS: Vancomycin-rest genes A/B Not Detected (Not Detect)
[2022-12-20 04:45] LABS: Acinetobacter calcoa-baumannii Not Detected (Not Detect); Bacteroides fragilis Not Detected (Not Detect); Enterococcus faecalis DETECTED (Not Detect); Enterococcus faecium Not Detected (Not Detect); Listeria monocytogenes Not Detected (Not Detect); Staphylococcus epidermidis Not Detected (Not Detect); Staphylococcus lugdunensis Not Detected (Not Detect); Staphylococcus species Not Detected (Not Detect); Streptococcus agalactiae (Gr B Not Detected (Not Detect); Streptococcus pneumonia Not Detected (Not Detect); Streptococcus pyogenes (Gr A) Not Detected (Not Detect); Streptococcus species Not Detected (Not Detect)
[2022-12-20 04:46] LABS: Candida albicans Not Detected (Not Detect); Candida auris Not Detected (Not Detect); Candida glabrata Not Detected (Not Detect); Candida krusei Not Detected (Not Detect); Candida parapsilosis Not Detected (Not Detect); Candida tropicalis Not Detected (Not Detect); Cryptococcus neoformans/gatti Not Detected (Not Detect); Enterobacter cloacae complex Not Detected (Not Detect); Enterobacterales Not Detected (Not Detect); Haemophilus influenzae Not Detected (Not Detect); Klebsiella aerogenes Not Detected (Not Detect); Neisseria meningitidis Not Detected (Not Detect); Proteus species Not Detected (Not Detect); Pseudomonas aeruginosa Not Detected (Not Detect); Salmonella species Not Detected (Not Detect); Serratia marcescens Not Detected (Not Detect); Stenotrophomonas maltophilia Not Detected (Not Detect)
== END 2022-12-19 10:57 | disposition home or self-care (01) | DRG 871 ==
LOC: ED 12-18 00:09 → AC 12-18 00:42 → ICU 12-18 01:11
PROVIDERS: Emergency Medicine; Student in an Organized Health Care Education/Training Program; Admitting Provider Internal Medicine; Emergency Provider Emergency Medicine; Referring Provider Emergency Medicine; Visit Provider Internal Medicine
DX: A41.9 Sepsis, unspecified organism (principal); J18.9 Pneumonia, unspecified organism; R65.21 Severe sepsis with septic shock; C25.9 Malignant neoplasm of pancreas, unspecified; C78.00 Secondary malignant neoplasm of unspecified lung; E87.6 Hypokalemia; E11.9 Type 2 diabetes mellitus without complications; R06.6 Hiccough; G47.00 Insomnia, unspecified; G89.4 Chronic pain syndrome; E78.5 Hyperlipidemia, unspecified; G62.0 Drug-induced polyneuropathy; T45.1X5A Adverse effect of antineoplastic and immunosuppressive drugs, initial encounter; Z79.01 Long term (current) use of anticoagulants; Z86.711 Personal history of pulmonary embolism; Z79.84 Long term (current) use of oral hypoglycemic drugs; Z87.891 Personal history of nicotine dependence; Z79.4 Long term (current) use of insulin
CPT/HCPCS: 0241U; 36415; 36591; 71045; 71260; 71275; 74177; 80048; 80053; 81003; 81015; 82550; 82962; 83605; 83690; 83735; 83880; 84145; 84484; 85007; 85025; 85610; 85730; 87040; 87077; 87154; 87186; 87797; 93005; 93010; 96365; 96367; 96375; 99285; 99291; J0692; J1642; J1815; J2405; Q9967